=== PATIENT | female | born 1945 | race American Indian/Alaskan Native ===

== ENCOUNTER 2017-04-08 04:05 | Inpatient (IN) | payer MEDICARE ==
[2017-04-08 04:29] LABS: ISTAT Base Excess -7; ISTAT PCO2 27.9 (35-45); ISTAT PH 7.418 (7.35-7.45); ISTAT PO2 75 (80-105); ISTAT SO2 96; ISTAT TCO2 19
[2017-04-08] MEDS ORDERED: MAXIPIME/NS 1 GM/100 ML 1 GM/100 ML BAG IV ONE (04:35)
[2017-04-08] MEDS ORDERED: NACL 0.9% 1000 ML 1,000 ML IV ONE (04:35)
--- NOTE | 2017-04-08 04:45 | Emergency Department Report ---
ED Shortness of Breath HPI - General Stated Complaint: DIFFICULTY BREATHING Time Seen by Provider: 04/08/17 04:22 - History of Present Illness Initial Comments: 71-year-old female brought in by EMS from [facility], with shortness of breath and diaphoresis. Patient has past medical history of CVA, hypertension and diabetes. Patient brought in to the ER in moderate to severe respiratory distress. Unable to obtain history from patient due to her present condition MD Complaint: shortness of breath -: Sudden (just prior to arrival) Known History Of: diabetes, other (hypertension, history of CVA) Associated Symptoms: cough, diaphoresis, other (shortness of breath) Treatments Prior to Arrival: oxygen (patient placed on nonrebreather oxygen by EMS) - Related Data Home Medications Medication Instructions Recorded Confirmed Last Taken Acetaminophen [Acetaminophen ER 650 mg PO Q8HR PRN 12/07/16 12/07/16 12/07/16 TAB] Butalb/Acetamin/Caff 50-325-40 1 each PO Q4H PRN 12/07/16 12/07/16 12/07/16 [Fioricet] Cholestyramine 1 pack PO Q12H 12/07/16 12/07/16 Unknown Diphenoxylate HCl/Atropine 2 tab PO Q6H PRN 12/07/16 12/07/16 12/07/16 [Lomotil 2.5-0.025 mg Tablet] Gabapentin [Neurontin] 300 mg PO Q8HR 12/07/16 12/07/16 12/07/16 Labetalol HCl [Trandate TAB] 150 mg PO BID 12/07/16 12/07/16 12/07/16 Magnesium Hydroxide [Milk of 30 ml PO Q12H 12/07/16 12/07/16 12/07/16 Magnesia] Min Oil/Petrolatum [Artificial 1 applic OU QHS 12/07/16 12/07/16 12/06/16 Tears Ophth Oint] Multivitamin Tab W-MINERAL 1 each PO QD 12/07/16 12/07/16 12/07/16 [Multiple Vitamin/Mineral (Theragran M)] Omeprazole Magnesium [PriLOSEC Otc] 20 mg PO QDAY 12/07/16 12/07/16 12/07/16 Sertraline [Zoloft] 12.5 mg PO QDAY 12/07/16 12/07/16 12/07/16 prednisoLONE ACETATE 1% [Pred 1 drops OU QID 12/07/16 12/07/16 12/07/16 Forte 1%] Previous Rx's Medication Instructions Recorded Last Taken Type Docusate Sodium [Colace CAP] 100 mg PO BID #60 capsule 07/20/13 12/07/16 Rx traMADol [Ultram 50 MG tab] 50 mg PO Q4HR PRN #60 tablet 07/20/13 12/07/16 Rx Cholestyramine (with Sugar) 4 gm PO Q12H packet 12/09/16 Unknown Rx [Questran] Docusate Sodium [Colace CAP] 100 mg PO BID capsule 12/09/16 Unknown Rx Enoxaparin [Lovenox] 40 mg SUB-Q QDAY syringe 12/09/16 Unknown Rx Gabapentin [Neurontin] 300 mg PO Q8HR capsule 12/09/16 Unknown Rx Labetalol [Normodyne TAB] 150 mg PO BID tablet 12/09/16 Unknown Rx Min Oil/Petrolatum [Artificial 1 applic OU QHS tube 12/09/16 Unknown Rx Tears Ophth Oint] Multivitamin Tab W-MINERAL 1 each PO QDAY tablet 12/09/16 Unknown Rx [Multiple Vitamin/Mineral (Theragran M)] Pantoprazole [Protonix TAB] 20 mg PO QDAY tablet. 12/09/16 Unknown Rx Sertraline [Zoloft] 12.5 mg PO QDAY tablet 12/09/16 Unknown Rx prednisoLONE ACETATE 1% [Pred 1 drops OU QID bottle 12/09/16 Unknown Rx Forte 1%] Allergies Allergy/AdvReac Type Severity Reaction Status Date / Time codeine Allergy Nausea Verified 04/08/17 05:05 morphine Allergy Nausea Verified 04/08/17 05:05 ED Review of Systems ROS: Stated complaint: DIFFICULTY BREATHING Other details as noted in HPI Comment: Unobtainable due to pts medical conditions Constitutional: diaphoresis, malaise, weakness Respiratory: cough, shortness of breath ED Past Medical Hx - Past Medical History Hx Hypertension: Yes Hx Heart Attack/AMI: Yes Hx Congestive Heart Failure: Yes Hx Deep Vein Thrombosis: No Hx Arthritis: Yes Hx COPD: Yes Additional medical history: cardiac stents - Surgical History Hx Coronary Stent: Yes Hx Open Heart Surgery: Yes (1996) Hx Cholecystectomy: Yes Hx Appendectomy: Yes (1986) Hx Breast Surgery: Yes (1986 removed rt nipple) Additional Surgical History: hystererctomy 1986 - Social History Smoking Status: Never Smoker - Medications Home Medications: Home Medications Medication Instructions Recorded Confirmed Last Taken Type Docusate Sodium [Colace CAP] 100 mg PO BID #60 capsule 07/20/13 12/07/16 Rx traMADol [Ultram 50 MG tab] 50 mg PO Q4HR PRN #60 tablet 07/20/13 12/07/1612/07 Rx Acetaminophen [Acetaminophen ER 650 mg PO Q8HR PRN 12/07/16 12/07/16 12/07/16 History TAB] Butalb/Acetamin/Caff 50-325-40 1 each PO Q4H PRN 12/07/16 12/07/16 12/07/16 History [Fioricet] Cholestyramine 1 pack PO Q12H 12/07/16 12/07/16 Unknown History Diphenoxylate HCl/Atropine 2 tab PO Q6H PRN 12/07/16 12/07/16 12/07/16 History [Lomotil 2.5-0.025 mg Tablet] Gabapentin [Neurontin] 300 mg PO Q8HR 12/07/16 12/07/16 12/07/16 History Labetalol HCl [Trandate TAB] 150 mg PO BID 12/07/16 12/07/16 12/07/16 History Magnesium Hydroxide [Milk of 30 ml PO Q12H 12/07/16 12/07/16 12/07/16 History Magnesia] Min Oil/Petrolatum [Artificial 1 applic OU QHS 12/07/16 12/07/16 12/06/16 History Tears Ophth Oint] Multivitamin Tab W-MINERAL 1 each PO QD 12/07/16 12/07/16 12/07/16 History [Multiple Vitamin/Mineral (Theragran M)] Omeprazole Magnesium [PriLOSEC Otc] 20 mg PO QDAY 12/07/16 12/07/16 12/07/16 History Sertraline [Zoloft] 12.5 mg PO QDAY 12/07/16 12/07/16 12/07/16 History prednisoLONE ACETATE 1% [Pred 1 drops OU QID 12/07/16 12/07/16 12/07/16 History Forte 1%] Cholestyramine (with Sugar) 4 gm PO Q12H packet 12/09/16 Unknown Rx [Questran] Docusate Sodium [Colace CAP] 100 mg PO BID capsule 12/09/16 Unknown Rx Enoxaparin [Lovenox] 40 mg SUB-Q QDAY syringe 12/09/16 Unknown Rx Gabapentin [Neurontin] 300 mg PO Q8HR capsule 12/09/16 Unknown Rx Labetalol [Normodyne TAB] 150 mg PO BID tablet 12/09/16 Unknown Rx Min Oil/Petrolatum [Artificial 1 applic OU QHS tube 12/09/16 Unknown Rx Tears Ophth Oint] Multivitamin Tab W-MINERAL 1 each PO QDAY tablet 12/09/16 Unknown Rx [Multiple Vitamin/Mineral (Theragran M)] Pantoprazole [Protonix TAB] 20 mg PO QDAY tablet. 12/09/16 Unknown Rx Sertraline [Zoloft] 12.5 mg PO QDAY tablet 12/09/16 Unknown Rx prednisoLONE ACETATE 1% [Pred 1 drops OU QID bottle 12/09/16 Unknown Rx Forte 1%] ED Physical Exam - General General appearance: lethargic, in distress (moderate to severe respiratory distress), obese, other (patient appears diaphoretic) - Head Head exam: Present: atraumatic, normocephalic, normal inspection - Eye Eye exam: Present: normal appearance, PERRL, EOMI. Absent: scleral icterus - ENT ENT exam: Present: mucous membranes dry - Neck Neck exam: Present: normal inspection, full ROM. Absent: tenderness, lymphadenopathy - Respiratory Respiratory exam: Present: respiratory distress (moderate to severe distress), rales (bibasilar rales), decreased breath sounds, prolonged expiratory - Cardiovascular Cardiovascular Exam: Present: normal rhythm, tachycardia, normal heart sounds - GI/Abdominal GI/Abdominal exam: Present: soft, distended (obese abdomen), diminished bowel sounds. Absent: guarding, rebound - Rectal Rectal exam: Present: deferred - Extremities Exam Extremities exam: Present: full ROM, normal capillary refill, pedal edema - Neurological Exam Neurological exam: Present: other (patient in moderate severe respiratory distress unable to assess neurologically) ED Course Vital Signs 04/08/17 04/08/17 04:05 05:12 Temperature 97.9 F Pulse Rate 132 H 130 H Respiratory 44 H 36 H Rate Blood Pressure 141/72 88/58 [Left] O2 Sat by Pulse 100 97 Oximetry ED Medical Decision Making - Lab Data Result diagrams: 04/08/17 04:35 - EKG Data -: EKG Interpreted by Me - EKG Data 04/08/17 05:52 Sinus tachycardia rate of 140 beats per minutes rightward axis, right bundle branch block and left anterior fascicular block prolonged QTC Critical Care Time: Yes Critical care attestation.: If time is entered above; I have spent that time in minutes in the direct care of this critically ill patient, excluding procedure time. Critical Care Time: 30 MINS ED Disposition Clinical Impression: UTI (urinary tract infection), Sepsis, Pneumonia Disposition: DC-09 OP ADMIT IP TO THIS HOSP Is pt being admited?: Yes Does the pt Need Aspirin: No Condition: Stable Instructions: Bacterial Pneumonia (ED) Referrals: PRIMARY CARE, [Primary Care Provider] - 3-5 Days Time of Disposition: 06:55 (pt signed off to morning doctor)
[2017-04-08 05:27] LABS: Hematocrit 41.9 % (30.3-42.9); Hemoglobin 14.3 gm/dl (10.1-14.3); Mean Corpuscular HGB Conc 34 % (30-34); Mean Corpuscular Hemoglobin 32 pg (28-32); Mean Corpuscular Volume 94 fl (79-97); Red Blood Count 4.45 M/mm3 (3.65-5.03); Red Cell Distribution Width 14.2 % (13.2-15.2); White Blood Count 8.9 K/mm3 (4.5-11.0)
[2017-04-08 05:37] LABS: INR 1.14 (0.87-1.13)
[2017-04-08 05:38] LABS: Partial Thromboplastin Time 30.4 Sec. (24.2-36.6)
[2017-04-08] MEDS ORDERED: VANCOMYCIN VIAL IV ONE (05:48)
[2017-04-08] MEDS ORDERED: NACL 0.9% 1000 ML IV ONE ×2 (05:50→06:53)
[2017-04-08 05:54] LABS: Creatine Kinase MB 2.2 ng/mL (0.0-4.0); Magnesium 1.4 mg/dL (1.7-2.3)
[2017-04-08] MEDS ORDERED: ZOSYN/NS 3.375GM/50ML 3.375 GM/50 ML BAG IV SCH (06:00)
[2017-04-08] MEDS: ZOSYN/NS 4.5GM/100ML 4.5 GM/100 ML VIAL IV SCH ×2 (06:00→14:23)
[2017-04-08] MEDS ORDERED: ZOSYN/NS 4.5GM/100ML 4.5 GM/100 ML VIAL IV ONE (06:00)
[2017-04-08] MEDS ORDERED: VANCOMYCIN PHARMACY TO DOSE IV SCH (06:00)
[2017-04-08] MEDS ORDERED: VANCOMYCIN 2,000 MG in NACL 0.9% 500 ML 500 ML IV ONE (06:00)
[2017-04-08] MEDS ORDERED: VANCOMYCIN/NS 1 GM/250 ML 1 GM/250 ML BAG IV ONE (06:01)
[2017-04-08] MEDS ORDERED: VANCOMYCIN/NS 1 GM/250 ML 0 GM/0 ML BAG IV ONE (06:01)
[2017-04-08 06:02] LABS: Bacteria,Urine 4+ /HPF (Negative); Bilirubin,Urine NEG (Negative); Blood,Urine MOD (Negative); Ketones,Urine NEG (Negative); Leukocyte Esterase,Urine LG (Negative); Mucus,Urine 1+ /HPF; Nitrite,Urine POS (Negative); Urobilinogen,Urine < 2.0 mg/dL (<2.0)
[2017-04-08 06:04] LABS: WBC,Urine > 182.0 /HPF (0.0-6.0)
[2017-04-08] MEDS ORDERED: LEVOPHED DRIP 4 MG/NS 250 ML 4 MG/250 ML BAG IV SCH (07:00)
[2017-04-08 07:21] LABS: BUN/Creatinine Ratio 19.23; Calcium 8.7 mg/dL (8.4-10.2)
[2017-04-08 07:22] LABS: Albumin/Globulin Ratio 1.3 %; Bilirubin,Total 1.5 mg/dL (0.1-1.2); Chloride 101.6 mmol/L (98-107)
[2017-04-08 07:42] LABS: Basophils % (Manual) 0 % (0.0-1.8); Blastocytes % (Manual) 0 %; Eosinophils % (Manual) 0 % (0.0-4.3); Total Cells Counted Percent 0
[2017-04-08 07:43] LABS: Diff Status Complete; Platelet Clumps Few; RBC Morphology Normal
[2017-04-08 08:07] LABS: Potassium 5.6 mmol/L (3.6-5.0)
[2017-04-08] MEDS ORDERED: NACL 0.9% 500 ML 500 ML IV ONE (08:26)
[2017-04-08] MEDS ORDERED: NACL 0.9% 1000 ML 1,000 ML IV SCH (09:00)
[2017-04-08] MEDS ORDERED: MAGNESIUM SULFATE 2GM/50ML 2 GM/50 ML BAG IV ONE (09:10)
[2017-04-08 09:15] LABS: Platelet Count 152 K/mm3 (140-440)
--- NOTE | 2017-04-08 09:28 | XRay Report ---
AP CHEST: HISTORY: Dyspnea Compared to 12/07/16. Cardiac surgery changes are again noted. Mild cardiomegaly is present which appears slightly increased. Normal pulmonary vascularity. Minor segmental atelectasis at the left lung base or small left pleural effusion is identified. Otherwise, the lungs are clear. No pneumothorax. IMPRESSION: Mild cardiomegaly. Segmental atelectasis in the left lower lobe versus small left pleural effusion.
--- NOTE | 2017-04-08 11:34 | History and Physical Report ---
History of Present Illness Date of examination: 04/08/17 Date of admission: 04/08/17 08:23 Chief complaint: Shortness of breath History of present illness: Patient is a 71-year-old woman from [facility] under the care of Dr. Bryce Carrillo with a history of insulin-dependent diabetes mellitus, hypertension, depression, GERD, peripheral neuropathy, glaucoma, acute NH, coronary artery disease status post stents, COPD, CHF EF 45% on negative stress test December 2016, CVA with functional quadriplegia, contracted legs, dysphasia and left-sided hemiparesis who presents with "possible aspiration, labored breathing, sats fluctuating" per shelter report. Patient doesn't give a good history due to her lethargy. She is not complaining of chest pain or severe headaches. She admits to sweating, subjective fevers and malaise/fatigue. Past medical history: As HPI and Coronary artery disease, hypertension, CVA with residuals Past surgical history: CAD s/p CABG ', h/o left main stent thrombosis s/p PCI 12/16 Social history: No smoking, alcohol abuse or illicit drugs, full code per shelter sheet Family history: Asked but no answer Review of system:Constitutional: Positive for malaise, poor appetite Ears, nose, mouth and throat: no deferred, no ear pain, no decreased hearing, no sinus pressure, no bleeding gums, no dental pain, no mouth pain, no hoarseness, no sore throat, no swelling in mouth, no post-nasal drip, no headache, no vertigo, no pain front of neck, no neck lump Cardiovascular: no chest pain, lightheadedness, decreased exercise tolerance, no orthopnea, no palpitations, no rapid/irregular heart beat, no edema, no syncope, no shortness of breath, no dyspnea on exertion, no paroxysmal nocturnal dyspnea, no claudication, no phlebitis, no high blood pressure, no leg edema Respiratory: no cough with sputum, no excessive sputum, no hemoptysis, no pleurisy, no pain, no pain on inspiration, no respiratory infections, no other Gastrointestinal: no nausea, no diarrhea, no constipation, no hematemesis, no hematochezia, no loss of appetite, no early satiety, no indigestion, no dyspepsia/bloating Genitourinary Male: no flank pain, no discharge, no urinary hesitancy, no nocturia Rectal: no incontinence, no bleeding, no itching, no discharge Musculoskeletal: contractures Integumentary: no depigmentation, no dryness, no unusual bruising Neurological: Slightly confused positive Psychiatric: positive Endocrine: positive Hematologic/Lymphatic: no easy bruising, no lymphedema Allergic/Immunologic: no urticaria, no allergic rhinitis, no anaphylaxis Medications and Allergies Allergies Allergy/AdvReac Type Severity Reaction Status Date / Time codeine Allergy Nausea Verified 04/08/17 05:05 morphine Allergy Nausea Verified 04/08/17 05:05 Home Medications Medication Instructions Recorded Confirmed Last Taken Type traMADol [Ultram 50 MG tab] 50 mg PO Q4HR PRN #60 tablet 07/20/13 04/08/1712/07 Rx Acetaminophen [Acetaminophen ER 650 mg PO Q8HR PRN 12/07/16 04/08/17 12/07/16 History TAB] Butalb/Acetamin/Caff 50-325-40 1 each PO Q4H PRN 12/07/16 04/08/17 12/07/16 History [Fioricet] Cholestyramine 1 pack PO Q12H 12/07/16 04/08/17 Unknown History Diphenoxylate HCl/Atropine 2 tab PO Q6H PRN 12/07/16 04/08/17 12/07/16 History [Lomotil 2.5-0.025 mg Tablet] Magnesium Hydroxide [Milk of 30 ml PO Q12H 12/07/16 04/08/17 12/07/16 History Magnesia] Omeprazole Magnesium [PriLOSEC Otc] 20 mg PO QDAY 12/07/16 04/08/17 12/07/16 History prednisoLONE ACETATE 1% [Pred 1 drops OU QID 12/07/16 04/08/17 12/07/16 History Forte 1%] Docusate Sodium [Colace CAP] 100 mg PO BID capsule 12/09/16 04/08/17 Unknown Rx Gabapentin [Neurontin] 300 mg PO Q8HR capsule 12/09/16 04/08/17 Unknown Rx Labetalol [Normodyne TAB] 150 mg PO BID tablet 12/09/16 04/08/17 Unknown Rx Min Oil/Petrolatum [Artificial 1 applic OU QHS tube 12/09/16 04/08/17 Unknown Rx Tears Ophth Oint] Multivitamin Tab W-MINERAL 1 each PO QDAY tablet 12/09/16 04/08/17 Unknown Rx [Multiple Vitamin/Mineral (Theragran M)] Sertraline [Zoloft] 12.5 mg PO QDAY tablet 12/09/16 04/08/17 Unknown Rx Antacid Suspension 30 ml PO Q4H PRN 04/08/17 04/08/17 Unknown History Aspirin [Aspirin TAB] 1 tab PO DAILY 04/08/17 04/08/17 Unknown History Meloxicam 7.5 mg PO DAILY 04/08/17 04/08/17 Unknown History Norvasc 10 mg PO DAILY 04/08/17 04/08/17 Unknown History Percocet 5/325 mg 1 tab PO Q12H PRN 04/08/17 04/08/17 Unknown History Zocor TAB 20 mg PO HS 04/08/17 04/08/17 Unknown History Active Meds: Active Medications Heparin Sodium (Porcine) (Heparin) 5,000 unit SUB-Q Q12HR HERMELINDO Sodium Chloride (Nacl 0.9% 1000 Ml) 1,000 mls @ 125 mls/hr IV ONCE ONE Stop: 04/08/17 12:34 Last Admin: 04/08/17 05:19 Dose: 125 mls/hr Piperacillin Sod/Tazobactam Sod (Zosyn/Ns 4.5gm/100ml) 4.5 gm in 100 mls @ 200 mls/hr IV Q8HR HERMELINDO Last Admin: 04/08/17 06:00 Dose: 200 mls/hr Norepinephrine (Levophed Drip 4 Mg/Ns 250 Ml) 4 mg in 250 mls @ 7.5 mls/hr IV TITR HERMELINDO; 2 MCG/MIN PRN Reason: Protocol Vancomycin HCl (Vancomycin Pharmacy To Dose) 1 each IV PKCONSULT HERMELINDO PRN Reason: Protocol Exam - Physical Exam Narrative exam: GEN: Chronic debilitated, ill-appearing, lethargic, oriented 2 HEENT: NCAT, EOMI, PERRL, OP Clear NECK: supple, no adenopathy, no thyromegaly, no JVD CVS/HEART: Regular tachycardia, NORMAL S1S2, NO JVD, pulses present bilaterally CHEST/LUNGS: inspiratory crackles at base, Symmetrical chest expansion, good air entry bilaterally GI/Abdomen: protuberant but soft, nontender, good bowel sounds, no guarding or rebound /Bladder: no suprapubic tenderness, no CVA or paraspinal tenderness EXT/Skin: no significant edema or obvious rash, cap refill 2 sec MSK: bilateral leg contractures Neuro: CN 2-12 grossly intact, no new focal deficits Psych: calm but confused - Constitutional Vitals: Temp Pulse Resp BP Pulse Ox 97.9 F 113 H 33 H 209/124 99 04/08/17 04:05 04/08/17 07:54 04/08/17 07:54 04/08/17 07:54 04/08/17 07:54 Results - Labs CBC & Chem 7: 04/08/17 04:35 04/08/17 06:55 Labs: Abnormal lab results 04/08/17 Range/Units 08:55 Lactic Acid 5.70 H* (0.7-2.0) mmol/L Assessment and Plan Patient is a 71-year-old woman from [facility] under the care of Dr. Bryce Carrillo with a history of insulin-dependent diabetes mellitus, hypertension, depression, GERD, peripheral neuropathy, glaucoma, acute NH, coronary artery disease status post CABG and stent, COPD, CHF EF 45% on negative stress test December 2016, CVA with functional quadriplegia, contracted legs, dysphasia and left-sided hemiparesis who presents with "possible aspiration, labored breathing, sats fluctuating" per shelter report. Patient has ams with lethargy. Portable chest x-ray read as mild cardiomegaly, segmental atelectasis left lower lobe versus small left pleural effusion. Urinalysis indicative of urinary tract infection. Patient was found to be hypotensive and a central line was placed, Levophed ordered but not given because blood pressure temporarily responded to IV fluid boluses; however, patient has h/o of chf/cad, EF of 45%. Therefore must be careful with IV hydration. -Septic shock likely due to UTI: Treat with IV antibiotics, IV fluids, follow cultures, ordered repeat lactic acid for sepsis bundle criteria -Acute hypoxic respiratory failure currently on 2 L oxygen which is new for patient: Consult respiratory therapy, pulmonology, wean oxygen as appropriate, nebulizer treatments -Acute encephalopathy due to sepsis: Treat above -Functional quadriplegia due to CVA with left-sided hemiparesis: Wound care consult -Hyperkalemia, mild 5.6: Repeat levels -Hypomagnesemia: Replace and recheck in a.m. -DVT prophylaxis: Subcutaneous heparin The high probability of a clinically significant, sudden or life threatening deterioration of the [] system(s) required my full and direct attention, intervention and personal management. The aggregate critical care time was [32] minutes. This time is in addition to time spent performing reported procedures but includes the following: [] Data Review and interpretation [] Patient assessment and monitoring of vital signs [] Documentation [] Medication orders and management
--- NOTE | 2017-04-08 18:35 | XRay Report ---
FINAL REPORT EXAM: XR ABDOMEN 1V AP HISTORY: ABD PAIN TECHNIQUE: Supine views of the abdomen PRIORS: None. FINDINGS: The bowel gas pattern is nonspecific. No free air is identified. Soft tissues have no evidence for mass shadows or calcifications. A right femoral catheter is in place. Surgical clips in right upper quadrant are from a prior cholecystectomy. The bony structures demonstrates moderate narrowing of both hip joints related to osteoarthritis. Degenerative changes in the lower lumbar spine are noted. Images include the lower chest which demonstrate moderate cardiomegaly. IMPRESSION: Nonspecific, nonobstructive bowel gas pattern with no acute process noted.
[2017-04-08] MEDS ORDERED: TYLENOL PO ONE (18:43)
[2017-04-08] MEDS ORDERED: DUONEB *Not for PRN Use IH SCH (20:00)
[2017-04-09] MEDS: HEPARIN SUB-Q SCH ×3 (00:01→22:15)
[2017-04-09] MEDS: PROVENTIL IH PRN (05:07)
[2017-04-09] MEDS: ZOSYN/NS 4.5GM/100ML 4.5 GM/100 ML VIAL IV SCH ×4 (05:30→22:14)
[2017-04-09 08:21] LABS: BUN/Creatinine Ratio 18.75; Calcium 7.8 mg/dL (8.4-10.2); Potassium 3.9 mmol/L (3.6-5.0)
[2017-04-09 08:41] LABS: Hematocrit TNR % (30.3-42.9); Hemoglobin TNR gm/dl (10.1-14.3); Mean Corpuscular HGB Conc TNR % (30-34); Mean Corpuscular Hemoglobin TNR pg (28-32); Mean Corpuscular Volume TNR fl (79-97); Red Blood Count TNR M/mm3 (3.65-5.03); Red Cell Distribution Width TNR % (13.2-15.2); White Blood Count TNR K/mm3 (4.5-11.0)
[2017-04-09 08:43] LABS: Platelet Count TNR K/mm3 (140-440)
[2017-04-09] MEDS: DUONEB *Not for PRN Use IH SCH ×3 (09:10→19:44)
[2017-04-09] MEDS: DILAUDID IV PRN ×2 (10:48→19:58)
[2017-04-09] MEDS: VANCOMYCIN 1,500 MG in NACL 0.9% 500 ML 500 ML IV SCH (10:56)
[2017-04-09] MEDS ORDERED: LOPRESSOR IV ONE (11:00)
[2017-04-09 12:52] LABS: Hematocrit 33.2 % (30.3-42.9); Hemoglobin 11.2 gm/dl (10.1-14.3); Mean Corpuscular HGB Conc 34 % (30-34); Mean Corpuscular Hemoglobin 32 pg (28-32); Mean Corpuscular Volume 94 fl (79-97); Red Blood Count 3.54 M/mm3 (3.65-5.03); Red Cell Distribution Width 14.7 % (13.2-15.2)
[2017-04-09 12:59] LABS: Platelet Count 80 K/mm3 (140-440); White Blood Count 28.3 K/mm3 (4.5-11.0)
--- NOTE | 2017-04-09 14:42 | Progress Note ---
Assessment and Plan Assessment and plan: Patient is a 71-year-old woman from [facility] under the care of Dr. Bryce Carrillo with a history of insulin-dependent diabetes mellitus, hypertension, depression, GERD, peripheral neuropathy, glaucoma, acute MT, coronary artery disease status post CABG and stent, COPD, CHF EF 45% on negative stress test December 2016, CVA with functional quadriplegia, contracted legs, dysphasia and left-sided hemiparesis who presents with "possible aspiration, labored breathing, sats fluctuating" per [facility] report. Patient has ams with lethargy. Portable chest x-ray read as mild cardiomegaly, segmental atelectasis left lower lobe versus small left pleural effusion. Urinalysis indicative of urinary tract infection. Patient was found to be hypotensive and a central line was placed, Levophed ordered but not given because blood pressure temporarily responded to IV fluid boluses; however, patient has h/o of chf/cad, EF of 45%. Therefore must be careful with IV hydration. -Septic shock likely due to UTI: Treat with IV antibiotics, IV fluids, follow cultures, ordered repeat lactic acid for sepsis bundle criteria -Acute hypoxic respiratory failure currently on 2 L oxygen which is new for patient: Consult edrespiratory therapy, pulmonology, wean oxygen as appropriate , nebulizer treatments -Acute encephalopathy due to sepsis: Treat above -Functional quadriplegia due to CVA with left-sided hemiparesis: Wound care consult -Hyperkalemia, mild 5.6: Repeat levels -Hypomagnesemia: Replace and recheck in a.m. -DVT prophylaxis: Subcutaneous heparin full code Disposition: Continued inpatient care, transferred from ICU to telemetry since off vasopressor. History Interval history: Patient was seen and examined. Follow-up on current diagnosis/shortness of breath which she still experiencing. Overnight uneventful. Patient denies any chest pain, nausea/vomiting or severe headaches. Imaging, nursing note, chart, labs and old chart reviewed. Discussed with patient. Hospitalist Physical - Physical exam Narrative exam: GEN: Chronic debilitated, ill-appearing, lethargic, oriented 2 HEENT: NCAT, EOMI, PERRL, OP Clear NECK: supple, no adenopathy, no thyromegaly, no JVD CVS/HEART: Regular tachycardia, NORMAL S1S2, NO JVD, pulses present bilaterally CHEST/LUNGS: inspiratory crackles at base, Symmetrical chest expansion, good air entry bilaterally GI/Abdomen: protuberant but soft, nontender, good bowel sounds, no guarding or rebound /Bladder: no suprapubic tenderness, no CVA or paraspinal tenderness EXT/Skin: no significant edema or obvious rash, cap refill 2 sec MSK: bilateral leg contractures Neuro: CN 2-12 grossly intact, no new focal deficits Psych: calm but confused - Constitutional Vitals: Temp Pulse Resp BP Pulse Ox 98.9 F 85 21 114/68 93 04/09/17 11:43 04/09/17 11:50 04/09/17 11:50 04/09/17 11:50 04/09/17 11:50 Results - Labs CBC & Chem 7: 04/09/17 12:39 04/09/17 07:52 Labs: Laboratory Last Values WBC 28.3 K/mm3 (4.5-11.0) H 04/09/17 12:39 RBC 3.54 M/mm3 (3.65-5.03) L 04/09/17 12:39 Hgb 11.2 gm/dl (10.1-14.3) D 04/09/17 12:39 Hct 33.2 % (30.3-42.9) D 04/09/17 12:39 MCV 94 fl (79-97) 04/09/17 12:39 MCH 32 pg (28-32) 04/09/17 12:39 MCHC 34 % (30-34) 04/09/17 12:39 RDW 14.7 % (13.2-15.2) 04/09/17 12:39 Plt Count 80 K/mm3 (140-440) L 04/09/17 12:39 Add Manual Diff Complete 04/08/17 04:35 Total Counted 100 04/08/17 04:35 Seg Neutrophils % Senior Integration Developer 04/08/17 04:35 Seg Neuts % (Manual) 83.0 % (40.0-70.0) H 04/08/17 04:35 Band Neutrophils % 14.0 % 04/08/17 04:35 Lymphocytes % (Manual) 3.0 % (13.4-35.0) L 04/08/17 04:35 Reactive Lymphs % (Man) 0 % 04/08/17 04:35 Monocytes % (Manual) 0 % (0.0-7.3) 04/08/17 04:35 Eosinophils % (Manual) 0 % (0.0-4.3) 04/08/17 04:35 Basophils % (Manual) 0 % (0.0-1.8) 04/08/17 04:35 Metamyelocytes % 0 % 04/08/17 04:35 Myelocytes % 0 % 04/08/17 04:35 Promyelocytes % 0 % 04/08/17 04:35 Blast Cells % 0 % 04/08/17 04:35 Nucleated RBC % 1.0 % (0.0-0.9) H 04/08/17 04:35 Seg Neutrophils # Man 7.4 K/mm3 (1.8-7.7) 04/08/17 04:35 Band Neutrophils # 1.2 K/mm3 04/08/17 04:35 Lymphocytes # (Manual) 0.3 K/mm3 (1.2-5.4) L 04/08/17 04:35 Abs React Lymphs (Man) 0.0 K/mm3 04/08/17 04:35 Monocytes # (Manual) 0.0 K/mm3 (0.0-0.8) 04/08/17 04:35 Eosinophils # (Manual) 0.0 K/mm3 (0.0-0.4) 04/08/17 04:35 Basophils # (Manual) 0.0 K/mm3 (0.0-0.1) 04/08/17 04:35 Metamyelocytes # 0.0 K/mm3 04/08/17 04:35 Myelocytes # 0.0 K/mm3 04/08/17 04:35 Promyelocytes # 0.0 K/mm3 04/08/17 04:35 Blast Cells # 0.0 K/mm3 04/08/17 04:35 WBC Morphology Not Reportable 04/08/17 04:35 Hypersegmented Neuts Not Reportable 04/08/17 04:35 Hyposegmented Neuts Not Reportable 04/08/17 04:35 Hypogranular Neuts Not Reportable 04/08/17 04:35 Smudge Cells Not Reportable 04/08/17 04:35 Toxic Granulation Not Reportable 04/08/17 04:35 Toxic Vacuolation Not Reportable 04/08/17 04:35 Dohle Bodies Not Reportable 04/08/17 04:35 Pelger-Huet Anomaly Not Reportable 04/08/17 04:35 Ortiz Rods Not Reportable 04/08/17 04:35 Platelet Estimate Appears normal 04/08/17 04:35 Clumped Platelets Few 04/08/17 04:35 Plt Clumps, EDTA Not Reportable 04/08/17 04:35 Large Platelets Not Reportable 04/08/17 04:35 Giant Platelets Not Reportable 04/08/17 04:35 Platelet Satelliting Not Reportable 04/08/17 04:35 Plt Morphology Comment Not Reportable 04/08/17 04:35 RBC Morphology Normal 04/08/17 04:35 Dimorphic RBCs Not Reportable 04/08/17 04:35 Polychromasia Not Reportable 04/08/17 04:35 Hypochromasia Not Reportable 04/08/17 04:35 Poikilocytosis Not Reportable 04/08/17 04:35 Anisocytosis Not Reportable 04/08/17 04:35 Microcytosis Not Reportable 04/08/17 04:35 Macrocytosis Not Reportable 04/08/17 04:35 Spherocytes Not Reportable 04/08/17 04:35 Pappenheimer Bodies Not Reportable 04/08/17 04:35 Sickle Cells Not Reportable 04/08/17 04:35 Target Cells Not Reportable 04/08/17 04:35 Tear Drop Cells Not Reportable 04/08/17 04:35 Ovalocytes Not Reportable 04/08/17 04:35 Helmet Cells Not Reportable 04/08/17 04:35 López-Sandoval Bodies Not Reportable 04/08/17 04:35 [place] Rings Not Reportable 04/08/17 04:35 Tali Cells Not Reportable 04/08/17 04:35 Bite Cells Not Reportable 04/08/17 04:35 Crenated Cell Not Reportable 04/08/17 04:35 Elliptocytes Not Reportable 04/08/17 04:35 Acanthocytes (Spur) Not Reportable 04/08/17 04:35 Rouleaux Not Reportable 04/08/17 04:35 Hemoglobin C Crystals Not Reportable 04/08/17 04:35 Schistocytes Not Reportable 04/08/17 04:35 Malaria parasites Not Reportable 04/08/17 04:35 Colton Bodies Not Reportable 04/08/17 04:35 Hem Pathologist Commnt No 04/08/17 04:35 PT 15.2 Sec. (12.2-14.9) H 04/08/17 04:35 INR 1.14 (0.87-1.13) H 04/08/17 04:35 APTT 30.4 Sec. (24.2-36.6) 04/08/17 04:35 POC ABG pH 7.418 (7.35-7.45) 04/08/17 04:26 POC ABG pCO2 27.9 (35-45) L 04/08/17 04:26 POC ABG pO2 75 (80-105) L 04/08/17 04:26 POC ABG HCO3 18.0 04/08/17 04:26 POC ABG Total CO2 19 04/08/17 04:26 POC ABG O2 Sat 96 04/08/17 04:26 POC ABG Base Excess -7 04/08/17 04:26 FiO2 32 % 04/08/17 04:26 Sodium 143 mmol/L (137-145) 04/09/17 07:52 Potassium 3.9 mmol/L (3.6-5.0) D 04/09/17 07:52 Chloride 105.0 mmol/L (98-107) 04/09/17 07:52 Carbon Dioxide 20 mmol/L (22-30) L 04/09/17 07:52 Anion Gap 22 mmol/L 04/09/17 07:52 BUN 30 mg/dL (7-17) H 04/09/17 07:52 Creatinine 1.6 mg/dL (0.7-1.2) H 04/09/17 07:52 Estimated GFR 38 ml/min 04/09/17 07:52 BUN/Creatinine Ratio 18.75 % 04/09/17 07:52 Glucose 142 mg/dL (65-100) H 04/09/17 07:52 POC Glucose 156 (70-105) H 04/09/17 04:54 Lactic Acid 5.70 mmol/L (0.7-2.0) H* 04/08/17 08:55 Calcium 7.8 mg/dL (8.4-10.2) L 04/09/17 07:52 Magnesium 2.00 mg/dL (1.7-2.3) 04/09/17 07:52 Total Bilirubin 1.50 mg/dL (0.1-1.2) H 04/08/17 06:55 AST 39 units/L (5-40) 04/08/17 06:55 ALT 20 units/L (7-56) 04/08/17 06:55 Alkaline Phosphatase 167 units/L (35-129) H 04/08/17 06:55 Total Creatine Kinase 284 units/L (30-135) H 04/08/17 04:35 CK-MB (CK-2) 2.2 ng/mL (0.0-4.0) 04/08/17 04:35 CK-MB (CK-2) Rel Index 0.7 (0-4) 04/08/17 04:35 Troponin T 0.034 ng/mL (0.00-0.029) H 04/08/17 04:35 NT-Pro-B Natriuret Pep 2928 pg/mL (0-900) H 04/08/17 06:36 Total Protein 7.0 g/dL (6.3-8.2) 04/08/17 06:55 Albumin 4.0 g/dL (3.9-5) 04/08/17 06:55 Albumin/Globulin Ratio 1.3 % 04/08/17 06:55 Triglycerides 120 mg/dL (2-149) 04/08/17 04:35 Cholesterol 118 mg/dL (50-199) 04/08/17 04:35 LDL Cholesterol Direct 56 mg/dL (50-130) 04/08/17 04:35 HDL Cholesterol 38 mg/dL (40-59) L 04/08/17 04:35 Cholesterol/HDL Ratio 3.10 % 04/08/17 04:35 Lipase 9 units/L (13-60) L 04/08/17 04:35 Urine Color Yellow (Yellow) 04/08/17 05:08 Urine Turbidity Clear (Clear) 04/08/17 05:08 Urine pH 5.0 (5.0-7.0) 04/08/17 05:08 Ur Specific [place] 1.016 (1.003-1.030) 04/08/17 05:08 Urine Protein 100 mg/dl mg/dL (Negative) 04/08/17 05:08 Urine Glucose (UA) Neg mg/dL (Negative) 04/08/17 05:08 Urine Ketones Neg mg/dL (Negative) 04/08/17 05:08 Urine Blood Mod (Negative) 04/08/17 05:08 Urine Nitrite Pos (Negative) 04/08/17 05:08 Urine Bilirubin Neg (Negative) 04/08/17 05:08 Urine Urobilinogen < 2.0 mg/dL (<2.0) 04/08/17 05:08 Ur Leukocyte Esterase Lg (Negative) 04/08/17 05:08 Urine WBC (Auto) > 182.0 /HPF (0.0-6.0) H 04/08/17 05:08 Urine RBC (Auto) 14.0 /HPF (0.0-6.0) 04/08/17 05:08 U Epithel Cells (Auto) 1.0 /HPF (0-13.0) 04/08/17 05:08 Urine Bacteria (Auto) 4+ /HPF (Negative) 04/08/17 05:08 Urine WBC Clumps 3+ /HPF 04/08/17 05:08 Urine Mucus 1+ /HPF 04/08/17 05:08
[2017-04-09 14:46] LABS: Blastocytes % (Manual) 0 %; Diff Status Complete; RBC Morphology Normal
[2017-04-09] MEDS: PROTONIX PO SCH (15:00)
[2017-04-09] MEDS: ZOLOFT PO SCH (15:00)
--- NOTE | 2017-04-09 15:14 | Consultation ---
History of Present Illness Consult date: 04/09/17 Requesting physician: HEMANT MENARD Reason for consult: dyspnea, other (sepsis) History of present illness: 71 yo admitted with "labored breathing", altered mentation, hypotension. Found to have dirty urine, bacteremia. CVL placed but has not required pressors. She is currently alert. C/o N/V/D, abd pain, and back pain, as well as ongoing SOB. No chest pain. Active Medications Albuterol (Proventil) 2.5 mg IH Q4HRT PRN PRN Reason: Shortness Of Breath Last Admin: 04/09/17 05:07 Dose: 2.5 mg Albuterol/Ipratropium (Duoneb *Not For Prn Use*) 1 ampul IH TIDRT [facility] Last Admin: 04/09/17 09:10 Dose: 1 ampul Aspirin (Aspirin) 325 mg PO DAILY [facility] Docusate Sodium (Colace) 100 mg PO BID [facility] Gabapentin (Neurontin) 300 mg PO Q8HR [facility] Heparin Sodium (Porcine) (Heparin) 5,000 unit SUB-Q Q12HR [facility] Last Admin: 04/09/17 10:48 Dose: 5,000 unit Hydromorphone HCl (Dilaudid) 0.5 mg IV Q3H PRN PRN Reason: Pain , Severe (7-10) Last Admin: 04/09/17 10:48 Dose: 0.5 mg Piperacillin Sod/Tazobactam Sod (Zosyn/Ns 4.5gm/100ml) 4.5 gm in 100 mls @ 200 mls/hr IV Q8HR [facility] Last Admin: 04/09/17 05:30 Dose: 200 mls/hr Norepinephrine (Levophed Drip 4 Mg/Ns 250 Ml) 4 mg in 250 mls @ 7.5 mls/hr IV TITR HERMELINDO; 2 MCG/MIN PRN Reason: Protocol Vancomycin HCl 1,500 mg/ (Sodium Chloride) 515 mls @ 333.333 mls/hr IV Q24HR [facility] Last Admin: 04/09/17 10:56 Dose: 333.333 mls/hr Sodium Chloride (Nacl 0.9% 1000 Ml) 1,000 mls @ 50 mls/hr IV DIRECT [facility] Pantoprazole Sodium (Protonix) 20 mg PO QDAY [facility] Prednisolone Acetate (Pred Forte 1%) 1 drops OU QID [facility] Sertraline HCl (Zoloft) 12.5 mg PO QDAY [facility] Simvastatin (Zocor) 20 mg PO QHS [facility] Vancomycin HCl (Vancomycin Pharmacy To Dose) 1 each IV PKCONSULT [facility]MELINDO PRN Reason: Protocol Past History Past Medical History: other (CAD, GERD, Hx of CVA, Obesity) Past Surgical History: CABG Social history: other (Resides at [facility]). denies: smoking, alcohol abuse, prescription drug abuse Family history: other (No pulm issues reported) Medications and Allergies Allergies Allergy/AdvReac Type Severity Reaction Status Date / Time codeine Allergy Nausea Verified 04/08/17 05:05 morphine Allergy Nausea Verified 04/08/17 05:05 Home Medications Medication Instructions Recorded Confirmed Last Taken Type traMADol [Ultram 50 MG tab] 50 mg PO Q4HR PRN #60 tablet 07/20/13 04/08/1712/07 Rx Acetaminophen [Acetaminophen ER 650 mg PO Q8HR PRN 12/07/16 04/08/17 12/07/16 History TAB] Butalb/Acetamin/Caff 50-325-40 1 each PO Q4H PRN 12/07/16 04/08/17 12/07/16 History [Fioricet] Cholestyramine 1 pack PO Q12H 12/07/16 04/08/17 Unknown History Diphenoxylate HCl/Atropine 2 tab PO Q6H PRN 12/07/16 04/08/17 12/07/16 History [Lomotil 2.5-0.025 mg Tablet] Magnesium Hydroxide [Milk of 30 ml PO Q12H 12/07/16 04/08/17 12/07/16 History Magnesia] Omeprazole Magnesium [PriLOSEC Otc] 20 mg PO QDAY 12/07/16 04/08/17 12/07/16 History prednisoLONE ACETATE 1% [Pred 1 drops OU QID 12/07/16 04/08/17 12/07/16 History Forte 1%] Docusate Sodium [Colace CAP] 100 mg PO BID capsule 12/09/16 04/08/17 Unknown Rx Gabapentin [Neurontin] 300 mg PO Q8HR capsule 12/09/16 04/08/17 Unknown Rx Labetalol [Normodyne TAB] 150 mg PO BID tablet 12/09/16 04/08/17 Unknown Rx Min Oil/Petrolatum [Artificial 1 applic OU QHS tube 12/09/16 04/08/17 Unknown Rx Tears Ophth Oint] Multivitamin Tab W-MINERAL 1 each PO QDAY tablet 12/09/16 04/08/17 Unknown Rx [Multiple Vitamin/Mineral (Theragran M)] Sertraline [Zoloft] 12.5 mg PO QDAY tablet 12/09/16 04/08/17 Unknown Rx Antacid Suspension 30 ml PO Q4H PRN 04/08/17 04/08/17 Unknown History Aspirin [Aspirin TAB] 1 tab PO DAILY 04/08/17 04/08/17 Unknown History Meloxicam 7.5 mg PO DAILY 04/08/17 04/08/17 Unknown History Norvasc 10 mg PO DAILY 04/08/17 04/08/17 Unknown History Percocet 5/325 mg 1 tab PO Q12H PRN 04/08/17 04/08/17 Unknown History Zocor TAB 20 mg PO HS 04/08/17 04/08/17 Unknown History Active Meds: Active Medications Albuterol (Proventil) 2.5 mg IH Q4HRT PRN PRN Reason: Shortness Of Breath Last Admin: 04/09/17 05:07 Dose: 2.5 mg Albuterol/Ipratropium (Duoneb *Not For Prn Use*) 1 ampul IH TIDRT [facility] Last Admin: 04/09/17 09:10 Dose: 1 ampul Aspirin (Aspirin) 325 mg PO DAILY [facility] Docusate Sodium (Colace) 100 mg PO BID [facility] Gabapentin (Neurontin) 300 mg PO Q8HR [facility] Heparin Sodium (Porcine) (Heparin) 5,000 unit SUB-Q Q12HR [facility] Last Admin: 04/09/17 10:48 Dose: 5,000 unit Hydromorphone HCl (Dilaudid) 0.5 mg IV Q3H PRN PRN Reason: Pain , Severe (7-10) Last Admin: 04/09/17 10:48 Dose: 0.5 mg Piperacillin Sod/Tazobactam Sod (Zosyn/Ns 4.5gm/100ml) 4.5 gm in 100 mls @ 200 mls/hr IV Q8HR [facility] Last Admin: 04/09/17 05:30 Dose: 200 mls/hr Norepinephrine (Levophed Drip 4 Mg/Ns 250 Ml) 4 mg in 250 mls @ 7.5 mls/hr IV TITR [facility]MELINDO; 2 MCG/MIN PRN Reason: Protocol Vancomycin HCl 1,500 mg/ (Sodium Chloride) 515 mls @ 333.333 mls/hr IV Q24HR [facility] Last Admin: 04/09/17 10:56 Dose: 333.333 mls/hr Sodium Chloride (Nacl 0.9% 1000 Ml) 1,000 mls @ 50 mls/hr IV DIRECT [facility] Pantoprazole Sodium (Protonix) 20 mg PO QDAY [facility] Prednisolone Acetate (Pred Forte 1%) 1 drops OU QID [facility] Sertraline HCl (Zoloft) 12.5 mg PO QDAY [facility] Simvastatin (Zocor) 20 mg PO QHS [facility] Vancomycin HCl (Vancomycin Pharmacy To Dose) 1 each IV PKCONSULT [facility] PRN Reason: Protocol Review of Systems All systems: negative Physical Examination Vital signs: Vital Signs Temp Pulse Resp BP Pulse Ox 97.9 F 132 H 44 H 141/72 100 04/08/17 04:05 04/08/17 04:05 04/08/17 04:05 04/08/17 04:05 04/08/17 04:05 General appearance: alert, other (awake) Eyes: non-icteric ENT: oropharynx moist Neck: supple Effort: mildly labored Ascultation: Bilateral: diminished breath sounds (due to obesity, no wheezes/ crackles) Cardiovascular: regular rate and rhythm (no mrg) Gastrointestinal: hypoactive bowel sounds, soft, tender (diffusely), other ( distended) Integumentary: normal Extremities: no cyanosis, edema (trace lower extremity edema) normal mental status, pupils equal and round, other (L sided hemiparesis) mood appropriate, affect normal Results - Laboratory Findings CBC and BMP: 04/09/17 12:39 04/09/17 07:52 ABG POC ABG pH 7.418 (7.35-7.45) 04/08/17 04:26 POC ABG pCO2 27.9 (35-45) L 04/08/17 04:26 POC ABG pO2 75 (80-105) L 04/08/17 04:26 POC ABG HCO3 18.0 04/08/17 04:26 POC ABG Total CO2 19 04/08/17 04:26 POC ABG O2 Sat 96 04/08/17 04:26 PT/INR, D-dimer PT 15.2 Sec. (12.2-14.9) H 04/08/17 04:35 INR 1.14 (0.87-1.13) H 04/08/17 04:35 Abnormal lab findings: Abnormal Labs 04/08/17 04/09/17 04/09/17 08:55 00:03 04:54 WBC RBC Plt Count Lymphocytes % (Manual) Seg Neutrophils # Man Lymphocytes # (Manual) Carbon Dioxide BUN Creatinine Glucose POC Glucose 163 H 156 H Lactic Acid 5.70 H* Calcium 04/09/17 04/09/17 07:52 12:39 WBC 28.3 H RBC 3.54 L Plt Count 80 L Lymphocytes % (Manual) 4.0 L Seg Neutrophils # Man 18.4 H Lymphocytes # (Manual) 1.1 L Carbon Dioxide 20 L BUN 30 H Creatinine 1.6 H Glucose 142 H POC Glucose Lactic Acid Calcium 7.8 L - Diagnostic Findings Chest x-ray: report reviewed, image reviewed (mild CM without CHF, lungs generally clear) Assessment and Plan Imp: 1. UTI 2. Severe sepsis 3. [facility]A MARIA 4. Acute respiratory failure, hypoxia 5. Lactic acidosis 6. Thrombocytopenia, likely due to sepsis 7. Bacteremia 8. [facility] Rec: 1. Vanco/Zosyn; f/u cultures 2. Gentle hydration given rising Cr 3. Change espitia 4. CT a/p with PO contrast 5. Monitor platelets; check Fibrinogen; may have to hold Heparin if any worsening 6. Repeat lactate in AM as well as labs 7. Would remove R fem CVL NICO; either replace with PIVs or PICC Plan of care reviewed w/ patient, she understands/agrees Thanks kindly for the consult. Will follow. CCT 31 minutes
--- NOTE | 2017-04-09 16:11 | Consultation ---
History of Present Illness Consult date: 04/09/17 Requesting physician: MAEGAN MENARD Consult reason: atrial fibrillation History of present illness: The patient is a 71-year-old woman from [facility] under the care of Dr. Bryce Carrillo with a past medical history significant for insulin-dependent diabetes mellitus, hypertension, depression, GERD, peripheral neuropathy, glaucoma, acute AK, coronary artery disease status post PCI and CABG , COPD, CHF EF 45% on negative stress test December 2016, CVA with functional quadriplegia, contracted legs, dysphasia and left-sided hemiparesis who presents with "possible aspiration, labored breathing, sats fluctuating" per senior living report. Patient doesn't give a good history due to her lethargy. She is not complaining of chest pain or severe headaches. She admits to sweating, subjective fevers and malaise/fatigue. On evaluation, she is noted in be in AFlutter 2:1 with RVR, HR 140s, and thus cardiology has been consulted. Admission EKG was read as sinus tachycardia but also appears to be AFlutter with 2:1 conduction. Past History Past Medical History: CAD, other (CAD, GERD, Hx of CVA, Obesity) Past Surgical History: CABG Social history: other (Resides at SNF). denies: smoking, alcohol abuse, prescription drug abuse Family history: other (No pulm issues reported) Medications and Allergies Allergies Allergy/AdvReac Type Severity Reaction Status Date / Time codeine Allergy Nausea Verified 04/08/17 05:05 morphine Allergy Nausea Verified 04/08/17 05:05 Home Medications Medication Instructions Recorded Confirmed Last Taken Type traMADol [Ultram 50 MG tab] 50 mg PO Q4HR PRN #60 tablet 07/20/13 04/08/1712/07 Rx Acetaminophen [Acetaminophen ER 650 mg PO Q8HR PRN 12/07/16 04/08/17 12/07/16 History TAB] Butalb/Acetamin/Caff 50-325-40 1 each PO Q4H PRN 12/07/16 04/08/17 12/07/16 History [Fioricet] Cholestyramine 1 pack PO Q12H 12/07/16 04/08/17 Unknown History Diphenoxylate HCl/Atropine 2 tab PO Q6H PRN 12/07/16 04/08/17 12/07/16 History [Lomotil 2.5-0.025 mg Tablet] Magnesium Hydroxide [Milk of 30 ml PO Q12H 12/07/16 04/08/17 12/07/16 History Magnesia] Omeprazole Magnesium [PriLOSEC Otc] 20 mg PO QDAY 12/07/16 04/08/17 12/07/16 History prednisoLONE ACETATE 1% [Pred 1 drops OU QID 12/07/16 04/08/17 12/07/16 History Forte 1%] Docusate Sodium [Colace CAP] 100 mg PO BID capsule 12/09/16 04/08/17 Unknown Rx Gabapentin [Neurontin] 300 mg PO Q8HR capsule 12/09/16 04/08/17 Unknown Rx Labetalol [Normodyne TAB] 150 mg PO BID tablet 12/09/16 04/08/17 Unknown Rx Min Oil/Petrolatum [Artificial 1 applic OU QHS tube 12/09/16 04/08/17 Unknown Rx Tears Ophth Oint] Multivitamin Tab W-MINERAL 1 each PO QDAY tablet 12/09/16 04/08/17 Unknown Rx [Multiple Vitamin/Mineral (Theragran M)] Sertraline [Zoloft] 12.5 mg PO QDAY tablet 12/09/16 04/08/17 Unknown Rx Antacid Suspension 30 ml PO Q4H PRN 04/08/17 04/08/17 Unknown History Aspirin [Aspirin TAB] 1 tab PO DAILY 04/08/17 04/08/17 Unknown History Meloxicam 7.5 mg PO DAILY 04/08/17 04/08/17 Unknown History Norvasc 10 mg PO DAILY 04/08/17 04/08/17 Unknown History Percocet 5/325 mg 1 tab PO Q12H PRN 04/08/17 04/08/17 Unknown History Zocor TAB 20 mg PO HS 04/08/17 04/08/17 Unknown History Active Meds: Active Medications Albuterol (Proventil) 2.5 mg IH Q4HRT PRN PRN Reason: Shortness Of Breath Last Admin: 04/09/17 05:07 Dose: 2.5 mg Albuterol/Ipratropium (Duoneb *Not For Prn Use*) 1 ampul IH TIDRT HERMELINDO Last Admin: 04/09/17 16:03 Dose: 1 ampul Aspirin (Aspirin) 325 mg PO DAILY [facility] Docusate Sodium (Colace) 100 mg PO BID HERMELINDO Gabapentin (Neurontin) 300 mg PO Q8HR [facility] Heparin Sodium (Porcine) (Heparin) 5,000 unit SUB-Q Q12HR [facility] Last Admin: 04/09/17 10:48 Dose: 5,000 unit Hydromorphone HCl (Dilaudid) 0.5 mg IV Q3H PRN PRN Reason: Pain , Severe (7-10) Last Admin: 04/09/17 10:48 Dose: 0.5 mg Piperacillin Sod/Tazobactam Sod (Zosyn/Ns 4.5gm/100ml) 4.5 gm in 100 mls @ 200 mls/hr IV Q8HR [facility] Last Admin: 04/09/17 05:30 Dose: 200 mls/hr Norepinephrine (Levophed Drip 4 Mg/Ns 250 Ml) 4 mg in 250 mls @ 7.5 mls/hr IV TITR HERMELINDO; 2 MCG/MIN PRN Reason: Protocol Vancomycin HCl 1,500 mg/ (Sodium Chloride) 515 mls @ 333.333 mls/hr IV Q24HR [facility] Last Admin: 04/09/17 10:56 Dose: 333.333 mls/hr Sodium Chloride (Nacl 0.9% 1000 Ml) 1,000 mls @ 50 mls/hr IV DIRECT HERMELINDO Pantoprazole Sodium (Protonix) 20 mg PO QDAY [facility] Prednisolone Acetate (Pred Forte 1%) 1 drops OU QID [facility] Sertraline HCl (Zoloft) 12.5 mg PO QDAY [facility] Simvastatin (Zocor) 20 mg PO QHS [facility] Vancomycin HCl (Vancomycin Pharmacy To Dose) 1 each IV PKCONSULT [facility] PRN Reason: Protocol Review of Systems Cardiovascular: no chest pain, no palpitations, no shortness of breath Physical Examination Vital Signs Temp Pulse Resp BP Pulse Ox 97.9 F 132 H 44 H 141/72 100 04/08/17 04:05 04/08/17 04:05 04/08/17 04:05 04/08/17 04:05 04/08/17 04:05 General appearance: no acute distress HEENT: Positive: PERRL, Normocephaly, Mucus Membranes Moist Neck: Positive: neck supple, trachea midline Cardiac: Positive: S1/S2, Tachycardia Lungs: Positive: clear to auscultation Neuro: Positive: Grossly Intact Abdomen: Negative: Tender Skin: Positive: Clear. Negative: Rash Musculoskeletal: No Fluid Collection, No Pain, Normal Range of Motion Extremities: Absent: edema Results 04/09/17 12:39 04/09/17 07:52 CBC 04/09/17 04/09/17 Range/Units 07:52 12:39 WBC TNR 28.3 H RBC TNR 3.54 L Hgb TNR 11.2 D Hct TNR 33.2 D Plt Count TNR 80 L Comprehensive Metabolic Panel 04/09/17 Range/Units 07:52 Sodium 143 (137-145) mmol/L Potassium 3.9 D (3.6-5.0) mmol/L Chloride 105.0 (98-107) mmol/L Carbon Dioxide 20 L (22-30) mmol/L BUN 30 H (7-17) mg/dL Creatinine 1.6 H (0.7-1.2) mg/dL Glucose 142 H (65-100) mg/dL Calcium 7.8 L (8.4-10.2) mg/dL - Imaging and Cardiology Echo: report reviewed (07/2013: EF 50%, trace MR, trace TR) EKG: image reviewed EKG interpretations - Telemetry EKG Rhythm: Atrial Flutter - EKG Supraventricular dysrhythmia: atrial flutter Assessment and Plan Assessment: Atrial flutter with RVR --> CVR following 5mg IV lopressor x 1 dose; ? new onset. CAD, s/p PCI and CABG UTI / sepsis ROSA MARIA Acute respiratory failure Lactic acidosis Hypomag - repleted Thrombocytopenia Bacteremia HTN DM GERD H/o CVA with functional quadriplegia, contracted legs, dysphasia and left-sided hemiparesis Plan: F/u echo. Obtain thyroid panel. Initiate lopressor, 25mg PO TID. Hold for HR <60 and/or SBP <100. ABX per primary. If pt maintains HR WNL, may tx out of ICU to telemetry from cardiac standpoint. Systemic anticoagulation in regards to atrial flutter is indicated. However, pt with plt count of 80K this AM. Will defer systemic anticoagulation at this time given thrombocytopenia and repeat CBC in AM. The patient has been seen in conjunction with Dr. Hameed who agrees with the assessment and plan of care.
[2017-04-09 20:43] LABS: INR 1.38 (0.87-1.13)
[2017-04-09 20:44] LABS: Partial Thromboplastin Time 43.4 Sec. (24.2-36.6)
[2017-04-09] MEDS: LOPRESSOR PO SCH (22:14)
[2017-04-09] MEDS: NEURONTIN PO SCH (22:15)
[2017-04-09] MEDS: ZOCOR PO SCH (22:15)
[2017-04-09] MEDS: COLACE PO SCH (22:15)
[2017-04-09] MEDS: PRED FORTE 1% OU SCH (22:16)
[2017-04-10] MEDS: PRED FORTE 1% OU SCH ×4 (00:09→17:46)
[2017-04-10] MEDS: LOPRESSOR PO SCH ×4 (00:11→21:43)
[2017-04-10] MEDS: NACL 0.9% 1000 ML 1,000 ML IV SCH ×3 (02:00→16:29)
[2017-04-10] MEDS: ZOSYN/NS 4.5GM/100ML 4.5 GM/100 ML VIAL IV SCH ×3 (05:58→22:10)
[2017-04-10] MEDS: NEURONTIN PO SCH ×2 (05:58→15:21)
[2017-04-10 06:05] LABS: Hematocrit 33.8 % (30.3-42.9); Hemoglobin 11.2 gm/dl (10.1-14.3); Mean Corpuscular HGB Conc 33 % (30-34); Mean Corpuscular Hemoglobin 31 pg (28-32); Mean Corpuscular Volume 95 fl (79-97); Red Blood Count 3.57 M/mm3 (3.65-5.03); Red Cell Distribution Width 14.9 % (13.2-15.2)
[2017-04-10 06:08] LABS: Platelet Count 99 K/mm3 (140-440); White Blood Count 23.7 K/mm3 (4.5-11.0)
[2017-04-10 06:35] LABS: Calcium 8.2 mg/dL (8.4-10.2); Chloride 106.4 mmol/L (98-107); Potassium 3.9 mmol/L (3.6-5.0)
[2017-04-10] MEDS: DILAUDID IV PRN (06:41)
--- NOTE | 2017-04-10 07:38 | Progress Note ---
Assessment and Plan Assessment and plan: Patient is a 71-year-old woman from [facility] under the care of Dr. Bryce Carrillo with a history of insulin-dependent diabetes mellitus, hypertension, depression, GERD, peripheral neuropathy, glaucoma, acute PA, coronary artery disease status post CABG and stent, COPD, CHF EF 45% on negative stress test December 2016, CVA with functional quadriplegia, contracted legs, dysphasia and left-sided hemiparesis who presents with "possible aspiration, labored breathing, sats fluctuating" per retirement report. Patient has ams with lethargy. Portable chest x-ray read as mild cardiomegaly, segmental atelectasis left lower lobe versus small left pleural effusion. Urinalysis indicative of urinary tract infection. Patient was found to be hypotensive and a central line was placed, Levophed ordered but not given because blood pressure temporarily responded to IV fluid boluses; however, patient has h/o of chf/cad, EF of 45%. Therefore must be careful with IV hydration. -Septic shock likely due to UTI: Treat with IV antibiotics vanc and zosyn, IV fluids, follow cultures, ordered repeat lactic acid for sepsis bundle criteria Will also obtain ID consultation. -Gram negative valentino bactermia- Likely secondary to UTI, Continue abx, Echo, Monitor for Sensitivity when organism identified. , check albumin level -Acute Cystis with right-sided hydronephrosis and obstructing nephrolithiasis- treatment as noted above, urology consult, possible stent today. -Acute hypoxic respiratory failure currently on 2 L oxygen which is new for patient: Consult respiratory therapy, pulmonology input noted, wean oxygen as appropriate, nebulizer treatments -Atrial flutter with RVR -possible new onset. Cardiology following. lopressor 25mg po TID started with holding parameters. per cardiology Will defer systemic anticoagulation at this time given thrombocytopenia and repeat CBC in AM. Would prefer plts >100k prior to initiation of systemic AC. CAD, s/p PCI and CABG- NOTED Above, asa, statin -HTN- controlled -DM- with hyperglycemia. Will initiate insulin for better control -Thrombocytopenia-Improving, monitor closely -Acute encephalopathy due to sepsis: Treat above -Acute kidney injury on Chronic kidney disease stage 3. Likely secondary to shock syndrome, Will continue gentle hydration, if no improvement will get Nephrology input. Check renal U/S, check vancomycin through -Left adrenal adenoma -follow-up outpatient -Infrarenal abdominal aortic aneurysm- 3.3x3.1cm - follow up outpatient. -PAD Moderate to severe- Vascular consult Functional quadriplegia due to CVA with left-sided hemiparesis: Wound care consult, PT/OT eval and treat -Hyperkalemia- resolved -Morbid obesity- BMI 38, NUTRITION CONSULT. -Hypomagnesemia: Replaced -DVT prophylaxis: Subcutaneous heparin full code Disposition: Continued inpatient care, The high probability of a clinically significant, sudden or life threatening deterioration of the [cardiac, renal, infectious] system(s) required my full and direct attention, intervention and personal management. The aggregate critical care time was [35] minutes. This time is in addition to time spent performing reported procedures but includes the following: [x] Data Review and interpretation [x] Patient assessment and monitoring of vital signs [x] Documentation [x] Medication orders and management History Interval history: Patient seen and examined, remained in critical condition, weak and lethargic, unable to provide any information. No other adverse event reported Hospitalist Physical - Physical exam Narrative exam: VITAL SIGNS: Reviewed. GENERAL: The patient appeared ill, morbidly obese, lethargic. Vital signs as documented. HEAD: No signs of head trauma. EYES: Pupils are equal. Extraocular motions intact. Anicteric EARS: Hearing grossly intact. MOUTH: Oropharynx is normal. NECK: No adenopathy, no JVD. CHEST: Chest with diminished breath sounds bilaterally. No wheezes, rales, or rhonchi. CARDIAC: Regular rate and rhythm. S1 and S2, without murmurs, gallops, or rubs. VASCULAR: No Edema. Peripheral pulses normal and equal in all extremities. ABDOMEN: Soft, without detectable tenderness. No sign of distention. No rebound or guarding, and no masses palpated. Bowel Sounds normal. MUSCULOSKELETAL: Good range of motion of all major joints. Extremities without clubbing, cyanosis or edema. NEUROLOGIC EXAM: Alert and oriented x 2. No focal sensory or strength deficits. Speech low pitched, inaudible PSYCHIATRIC: unable to assess. SKIN: Sacaral pressure ulcer stage II, left femoral TLC - Constitutional Vitals: Temp Pulse Resp BP Pulse Ox 98.7 F 98 H 27 H 112/76 93 04/10/17 03:58 04/10/17 06:00 04/10/17 06:00 04/10/17 06:00 04/10/17 04:30 General appearance: Present: no acute distress Results - Labs CBC & Chem 7: 04/10/17 04:00 04/10/17 04:00 Labs: Laboratory Last Values WBC 23.7 K/mm3 (4.5-11.0) H 04/10/17 04:00 RBC 3.57 M/mm3 (3.65-5.03) L 04/10/17 04:00 Hgb 11.2 gm/dl (10.1-14.3) 04/10/17 04:00 Hct 33.8 % (30.3-42.9) 04/10/17 04:00 MCV 95 fl (79-97) 04/10/17 04:00 MCH 31 pg (28-32) 04/10/17 04:00 MCHC 33 % (30-34) 04/10/17 04:00 RDW 14.9 % (13.2-15.2) 04/10/17 04:00 Plt Count 99 K/mm3 (140-440) L 04/10/17 04:00 Add Manual Diff Complete 04/09/17 12:39 Total Counted 100 04/09/17 12:39 Seg Neutrophils % Irrigator Head 04/08/17 04:35 Seg Neuts % (Manual) 65.0 % (40.0-70.0) 04/09/17 12:39 Band Neutrophils % 30.0 % 04/09/17 12:39 Lymphocytes % (Manual) 4.0 % (13.4-35.0) L 04/09/17 12:39 Reactive Lymphs % (Man) 0 % 04/09/17 12:39 Monocytes % (Manual) 1.0 % (0.0-7.3) 04/09/17 12:39 Eosinophils % (Manual) 0 % (0.0-4.3) 04/08/17 04:35 Basophils % (Manual) 0 % (0.0-1.8) 04/08/17 04:35 Metamyelocytes % 0 % 04/09/17 12:39 Myelocytes % 0 % 04/09/17 12:39 Promyelocytes % 0 % 04/09/17 12:39 Blast Cells % 0 % 04/09/17 12:39 Nucleated RBC % Not Reportable 04/09/17 12:39 Seg Neutrophils # Man 18.4 K/mm3 (1.8-7.7) H 04/09/17 12:39 Band Neutrophils # 8.5 K/mm3 04/09/17 12:39 Lymphocytes # (Manual) 1.1 K/mm3 (1.2-5.4) L 04/09/17 12:39 Abs React Lymphs (Man) 0.0 K/mm3 04/09/17 12:39 Monocytes # (Manual) 0.3 K/mm3 (0.0-0.8) 04/09/17 12:39 Eosinophils # (Manual) 0.0 K/mm3 (0.0-0.4) 04/09/17 12:39 Basophils # (Manual) 0.0 K/mm3 (0.0-0.1) 04/09/17 12:39 Metamyelocytes # 0.0 K/mm3 04/09/17 12:39 Myelocytes # 0.0 K/mm3 04/09/17 12:39 Promyelocytes # 0.0 K/mm3 04/09/17 12:39 Blast Cells # 0.0 K/mm3 04/09/17 12:39 WBC Morphology Not Reportable 04/09/17 12:39 Hypersegmented Neuts Not Reportable 04/09/17 12:39 Hyposegmented Neuts Not Reportable 04/09/17 12:39 Hypogranular Neuts Not Reportable 04/09/17 12:39 Smudge Cells Not Reportable 04/09/17 12:39 Toxic Granulation Not Reportable 04/09/17 12:39 Toxic Vacuolation Not Reportable 04/09/17 12:39 Dohle Bodies Not Reportable 04/09/17 12:39 Pelger-Huet Anomaly Not Reportable 04/09/17 12:39 Ortiz Rods Not Reportable 04/09/17 12:39 Platelet Estimate Not Reportable 04/09/17 12:39 Clumped Platelets Not Reportable 04/09/17 12:39 Plt Clumps, EDTA Not Reportable 04/09/17 12:39 Large Platelets Not Reportable 04/09/17 12:39 Giant Platelets Not Reportable 04/09/17 12:39 Platelet Satelliting Not Reportable 04/09/17 12:39 Plt Morphology Comment Not Reportable 04/09/17 12:39 RBC Morphology Normal 04/09/17 12:39 Dimorphic RBCs Not Reportable 04/09/17 12:39 Polychromasia Not Reportable 04/09/17 12:39 Hypochromasia Not Reportable 04/09/17 12:39 Poikilocytosis Not Reportable 04/09/17 12:39 Anisocytosis Not Reportable 04/09/17 12:39 Microcytosis Not Reportable 04/09/17 12:39 Macrocytosis Not Reportable 04/09/17 12:39 Spherocytes Not Reportable 04/09/17 12:39 Pappenheimer Bodies Not Reportable 04/09/17 12:39 Sickle Cells Not Reportable 04/09/17 12:39 Target Cells Not Reportable 04/09/17 12:39 Tear Drop Cells Not Reportable 04/09/17 12:39 Ovalocytes Not Reportable 04/09/17 12:39 Helmet Cells Not Reportable 04/09/17 12:39 [place] Bodies Not Reportable 04/09/17 12:39 [place] Rings Not Reportable 04/09/17 12:39 Tlai Cells Not Reportable 04/09/17 12:39 Bite Cells Not Reportable 04/09/17 12:39 Crenated Cell Not Reportable 04/09/17 12:39 Elliptocytes Not Reportable 04/09/17 12:39 Acanthocytes (Spur) Not Reportable 04/09/17 12:39 Rouleaux Not Reportable 04/09/17 12:39 Hemoglobin C Crystals Not Reportable 04/09/17 12:39 Schistocytes Not Reportable 04/09/17 12:39 Malaria parasites Not Reportable 04/09/17 12:39 [place] Bodies Not Reportable 04/09/17 12:39 Hem Pathologist Commnt No 04/09/17 12:39 PT 17.7 Sec. (12.2-14.9) H 04/09/17 19:53 INR 1.38 (0.87-1.13) H 04/09/17 19:53 APTT 43.4 Sec. (24.2-36.6) H 04/09/17 19:53 POC ABG pH 7.418 (7.35-7.45) 04/08/17 04:26 POC ABG pCO2 27.9 (35-45) L 04/08/17 04:26 POC ABG pO2 75 (80-105) L 04/08/17 04:26 POC ABG HCO3 18.0 04/08/17 04:26 POC ABG Total CO2 19 04/08/17 04:26 POC ABG O2 Sat 96 04/08/17 04:26 POC ABG Base Excess -7 04/08/17 04:26 FiO2 32 % 04/08/17 04:26 Sodium 143 mmol/L (137-145) 04/09/17 07:52 Potassium 3.9 mmol/L (3.6-5.0) 04/10/17 04:00 Chloride 106.4 mmol/L (98-107) 04/10/17 04:00 Carbon Dioxide 21 mmol/L (22-30) L 04/10/17 04:00 Anion Gap 20 mmol/L 04/10/17 04:00 BUN 30 mg/dL (7-17) H 04/10/17 04:00 Creatinine 1.8 mg/dL (0.7-1.2) H 04/10/17 04:00 Estimated GFR 33 ml/min 04/10/17 04:00 BUN/Creatinine Ratio 17 % 04/10/17 04:00 Glucose 164 mg/dL (65-100) H 04/10/17 04:00 POC Glucose 255 (70-105) H 04/10/17 05:33 Lactic Acid 2.80 mmol/L (0.7-2.0) H* 04/09/17 19:53 Calcium 8.2 mg/dL (8.4-10.2) L 04/10/17 04:00 Magnesium 2.00 mg/dL (1.7-2.3) 04/09/17 07:52 Total Bilirubin 1.50 mg/dL (0.1-1.2) H 04/08/17 06:55 AST 39 units/L (5-40) 04/08/17 06:55 ALT 20 units/L (7-56) 04/08/17 06:55 Alkaline Phosphatase 167 units/L (35-129) H 04/08/17 06:55 Total Creatine Kinase 284 units/L (30-135) H 04/08/17 04:35 CK-MB (CK-2) 2.2 ng/mL (0.0-4.0) 04/08/17 04:35 CK-MB (CK-2) Rel Index 0.7 (0-4) 04/08/17 04:35 Troponin T 0.034 ng/mL (0.00-0.029) H 04/08/17 04:35 NT-Pro-B Natriuret Pep 2928 pg/mL (0-900) H 04/08/17 06:36 Total Protein 7.0 g/dL (6.3-8.2) 04/08/17 06:55 Albumin 4.0 g/dL (3.9-5) 04/08/17 06:55 Albumin/Globulin Ratio 1.3 % 04/08/17 06:55 Triglycerides 120 mg/dL (2-149) 04/08/17 04:35 Cholesterol 118 mg/dL (50-199) 04/08/17 04:35 LDL Cholesterol Direct 56 mg/dL (50-130) 04/08/17 04:35 HDL Cholesterol 38 mg/dL (40-59) L 04/08/17 04:35 Cholesterol/HDL Ratio 3.10 % 04/08/17 04:35 Lipase 9 units/L (13-60) L 04/08/17 04:35 TSH 1.280 mlU/mL (0.270-4.200) 04/09/17 19:56 Free T4 1.32 ng/dL (0.76-1.46) 04/09/17 19:55 Urine Color Yellow (Yellow) 04/08/17 05:08 Urine Turbidity Clear (Clear) 04/08/17 05:08 Urine pH 5.0 (5.0-7.0) 04/08/17 05:08 Ur Specific [place] 1.016 (1.003-1.030) 04/08/17 05:08 Urine Protein 100 mg/dl mg/dL (Negative) 04/08/17 05:08 Urine Glucose (UA) Neg mg/dL (Negative) 04/08/17 05:08 Urine Ketones Neg mg/dL (Negative) 04/08/17 05:08 Urine Blood Mod (Negative) 04/08/17 05:08 Urine Nitrite Pos (Negative) 04/08/17 05:08 Urine Bilirubin Neg (Negative) 04/08/17 05:08 Urine Urobilinogen < 2.0 mg/dL (<2.0) 04/08/17 05:08 Ur Leukocyte Esterase Lg (Negative) 04/08/17 05:08 Urine WBC (Auto) > 182.0 /HPF (0.0-6.0) H 04/08/17 05:08 Urine RBC (Auto) 14.0 /HPF (0.0-6.0) 04/08/17 05:08 U Epithel Cells (Auto) 1.0 /HPF (0-13.0) 04/08/17 05:08 Urine Bacteria (Auto) 4+ /HPF (Negative) 04/08/17 05:08 Urine WBC Clumps 3+ /HPF 04/08/17 05:08 Urine Mucus 1+ /HPF 04/08/17 05:08 - Imaging and Cardiology CT scan - abdomen: image reviewed (aaa 3x3cm, right hydronephrosis)
[2017-04-10] MEDS ORDERED: D50W (25GM) Syringe IV PRN (07:48)
--- NOTE | 2017-04-10 08:17 | Cat Scan Report ---
FINAL REPORT EXAM: CT ABDOMEN PELVIS WO CON HISTORY: Abd pain, sepsis TECHNIQUE: CT of the abdomen and pelvis without IV contrast. Coronal and sagittal reconstructed imaging provided. PRIORS: None currently available. FINDINGS: ABDOMEN: Mild linear scarring or discoid subsegmental atelectasis at both lung bases. Mild cardiomegaly. No pericardial effusion. 2.3 x 7.7 cm left adrenal nodule demonstrates an attenuation suggesting adenoma. Right adrenal gland is unremarkable. Prior cholecystectomy. [id number] right hydronephrosis and mild right perinephric stranding noted. 9.3 x 5.1 mm right UPJ stone identified. Punctate 1 mm stone also noted within the right renal pelvis. 2.2 mm stone mid right kidney. No other stones identified. No left nephroureteral stones. No left hydronephrosis. Liver, stomach, spleen, and pancreas are unremarkable. Infrarenal abdominal aortic aneurysm measures 3.3 x 3.1 cm. Right common iliac measures 1.4 cm. Left common iliac measures 1.9 cm. Moderate disease in the common iliacs. Moderate to severe disease in the internal iliacs. Drjy-qp-cyupohnh disease in the external iliacs. Xdtd-je-iqehskce aortic atherosclerotic disease. Moderate to severe disease at the origin of the SMA and both renal arteries. IVC is unremarkable. There is no periaortic or retroperitoneal adenopathy or mass. Mild to moderate stool. Terminal ileum is normal. Appendix is unremarkable. Large and small bowel loops do not demonstrate wall thickening or inflammatory changes. No obstructive pattern. No free air or free fluid. Diastasis recti. Broad-based protrusion. No strangulation. PELVIS: Bladder is collapsed around a Hinojosa catheter and is not well evaluated weighted. Possible stone in the left posterior bladder measuring 3.8 mm. No pelvic mass or adenopathy. Uterus is not clearly visualized and may be atrophic or surgically removed. Inguinal regions are unremarkable. Right femoral central line identified. Bones: No suspicious osseous lesions on this limited examination of the skeleton. Metastatic disease better evaluated with bone scan. Degenerative changes are in the spine. IMPRESSION: Obstructing right UPJ stone. Ihkk-ar-djurpvza right hydronephrosis and mild right perinephric stranding. Smaller right renal stones. Mild cardiomegaly. Left benign adrenal adenoma. Infrarenal abdominal aortic aneurysm. 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 Bladder stone. Rob level II finding report initiated. Moderate to severe atherosclerotic disease.
[2017-04-10] MEDS: DUONEB *Not for PRN Use IH SCH ×4 (08:50→19:36)
[2017-04-10] MEDS: VANCOMYCIN 1,500 MG in NACL 0.9% 500 ML 500 ML IV SCH ×2 (09:19→10:19)
[2017-04-10] MEDS: COLACE PO SCH (09:21)
[2017-04-10] MEDS: ASPIRIN PO SCH (09:21)
[2017-04-10] MEDS: PROTONIX PO SCH (09:22)
[2017-04-10] MEDS: HEPARIN SUB-Q SCH ×2 (09:22→21:42)
[2017-04-10] MEDS: ZOLOFT PO SCH (09:22)
--- NOTE | 2017-04-10 10:40 | Consultation ---
History of Present Illness - Reason for Consult Consult date: 04/10/17 sepsis Requesting physician: KRISH ESTEVEZ - History of Present Illness 71-year-old female with history of CAD s/p LA/stents, diabetes mellitus, hypertension, depression, GERD, peripheral neuropathy, COPD, CHF, CVA with functional quadriplegia, admitted on 04/08/17 from group home due to progressive SOB, AMS/lethragy and fever. Patient is not able to provide a history. History taken from review of records. Upon arrival to the ED she was on a Non-rebreather. In the emergency room, Temperature 97.9. Heart rate 132. Respiratory rate 44. Blood pressure was 141/72 which then went down to 85/56. Initial white count was 8.9 which then went to 28,000. 14% bands. Initial creatinine was 1.3. Lactic acid 4.7. UA was remarkable for large leukocyte esterase and more than 182 white blood cells. CXR showed cardiomegaly with atelectasis of the left lower lobe. CT of the abdomen showed a obstruction of the right UPJ stone with mild to moderate right hydronephrosis, mild right perinephric stranding, AAA and bladder stones. Blood cultures are growing Escherichia coli. Urine culture was positive for more than 100,000 mixed bacteria. Microbiology: Blood cultures: 04/08 E coli Urine cultures: 04/08 >100K mixed bacteria Respiratory cultures: Wound cultures: Stool cultures: Current Antimicrobials: Zosyn 04/08 Vancomycin 04/08 Previous Antimicrobials: Past History Past Medical History: CAD, other (CAD, GERD, Hx of CVA, Obesity) Past Surgical History: CABG Social history: other (Resides at SNF). denies: smoking, alcohol abuse, prescription drug abuse Family history: other (No pulm issues reported) Medications and Allergies Allergies Allergy/AdvReac Type Severity Reaction Status Date / Time codeine Allergy Nausea Verified 04/08/17 05:05 morphine Allergy Nausea Verified 04/08/17 05:05 Home Medications Medication Instructions Recorded Confirmed Last Taken Type traMADol [Ultram 50 MG tab] 50 mg PO Q4HR PRN #60 tablet 07/20/13 04/08/1712/07 Rx Acetaminophen [Acetaminophen ER 650 mg PO Q8HR PRN 12/07/16 04/08/17 12/07/16 History TAB] Butalb/Acetamin/Caff 50-325-40 1 each PO Q4H PRN 12/07/16 04/08/17 12/07/16 History [Fioricet] Cholestyramine 1 pack PO Q12H 12/07/16 04/08/17 Unknown History Diphenoxylate HCl/Atropine 2 tab PO Q6H PRN 12/07/16 04/08/17 12/07/16 History [Lomotil 2.5-0.025 mg Tablet] Magnesium Hydroxide [Milk of 30 ml PO Q12H 12/07/16 04/08/17 12/07/16 History Magnesia] Omeprazole Magnesium [PriLOSEC Otc] 20 mg PO QDAY 12/07/16 04/08/17 12/07/16 History prednisoLONE ACETATE 1% [Pred 1 drops OU QID 12/07/16 04/08/17 12/07/16 History Forte 1%] Docusate Sodium [Colace CAP] 100 mg PO BID capsule 12/09/16 04/08/17 Unknown Rx Gabapentin [Neurontin] 300 mg PO Q8HR capsule 12/09/16 04/08/17 Unknown Rx Labetalol [Normodyne TAB] 150 mg PO BID tablet 12/09/16 04/08/17 Unknown Rx Min Oil/Petrolatum [Artificial 1 applic OU QHS tube 12/09/16 04/08/17 Unknown Rx Tears Ophth Oint] Multivitamin Tab W-MINERAL 1 each PO QDAY tablet 12/09/16 04/08/17 Unknown Rx [Multiple Vitamin/Mineral (Theragran M)] Sertraline [Zoloft] 12.5 mg PO QDAY tablet 12/09/16 04/08/17 Unknown Rx Antacid Suspension 30 ml PO Q4H PRN 04/08/17 04/08/17 Unknown History Aspirin [Aspirin TAB] 1 tab PO DAILY 04/08/17 04/08/17 Unknown History Meloxicam 7.5 mg PO DAILY 04/08/17 04/08/17 Unknown History Norvasc 10 mg PO DAILY 04/08/17 04/08/17 Unknown History Percocet 5/325 mg 1 tab PO Q12H PRN 04/08/17 04/08/17 Unknown History Zocor TAB 20 mg PO HS 04/08/17 04/08/17 Unknown History Active Meds: Active Medications Albuterol (Proventil) 2.5 mg IH Q4HRT PRN PRN Reason: Shortness Of Breath Last Admin: 04/09/17 05:07 Dose: 2.5 mg Albuterol/Ipratropium (Duoneb *Not For Prn Use*) 1 ampul IH TIDRT [facility] Last Admin: 04/09/17 19:44 Dose: 1 ampul Aspirin (Aspirin) 325 mg PO DAILY [facility] Last Admin: 04/10/17 09:21 Dose: Not Given Dextrose (D50w (25gm) Syringe) 50 ml IV PRN PRN PRN Reason: Hypoglycemia Docusate Sodium (Colace) 100 mg PO BID [facility] Last Admin: 04/10/17 09:21 Dose: Not Given Gabapentin (Neurontin) 300 mg PO Q8HR [facility] Last Admin: 04/10/17 05:58 Dose: 300 mg Heparin Sodium (Porcine) (Heparin) 5,000 unit SUB-Q Q12HR [facility] Last Admin: 04/10/17 09:22 Dose: Not Given Hydromorphone HCl (Dilaudid) 0.5 mg IV Q3H PRN PRN Reason: Pain , Severe (7-10) Last Admin: 04/10/17 06:41 Dose: 0.5 mg Piperacillin Sod/Tazobactam Sod (Zosyn/Ns 4.5gm/100ml) 4.5 gm in 100 mls @ 200 mls/hr IV Q8HR [facility] Last Admin: 04/10/17 05:58 Dose: 200 mls/hr Norepinephrine (Levophed Drip 4 Mg/Ns 250 Ml) 4 mg in 250 mls @ 7.5 mls/hr IV TITR HERMELINDO; 2 MCG/MIN PRN Reason: Protocol Vancomycin HCl 1,500 mg/ (Sodium Chloride) 515 mls @ 333.333 mls/hr IV Q24HR [facility] Last Admin: 04/10/17 10:19 Dose: 333.333 mls/hr Sodium Chloride (Nacl 0.9% 1000 Ml) 1,000 mls @ 50 mls/hr IV DIRECT [facility] Last Admin: 04/10/17 02:00 Dose: 50 mls/hr Insulin Aspart (Novolog) 0 units SUB-Q Q6HR HERMELINDO PRN Reason: Protocol Metoprolol Tartrate (Lopressor) 25 mg PO TID [facility] Last Admin: 04/10/17 09:21 Dose: Not Given Pantoprazole Sodium (Protonix) 20 mg PO QDAY [facility] Last Admin: 04/10/17 09:22 Dose: Not Given Prednisolone Acetate (Pred Forte 1%) 1 drops OU QID [facility] Last Admin: 04/10/17 00:09 Dose: Not Given Sertraline HCl (Zoloft) 12.5 mg PO QDAY [facility] Last Admin: 04/10/17 09:22 Dose: Not Given Simvastatin (Zocor) 20 mg PO QHS [facility] Last Admin: 04/09/17 22:15 Dose: 20 mg Vancomycin HCl (Vancomycin Pharmacy To Dose) 1 each IV PKCONSULT [facility] PRN Reason: Protocol Physical Examination - Physical Exam Narrative exam: General appearance: sedated on the vent Eyes: anicteric sclerae, moist conjunctivae; PERRLA HENT: Atraumatic; oropharynx limited with ETT Neck: Trachea midline; supple, no thyromegaly or lymphadenopathy Lungs: coarse BS rd CV: RRR Abdomen: Soft, obese Extremities:LE edema Skin: stage II sacral sore not infected Psych: sedated. Neuro: sedated Lines: right femoral TLC - Constitutional Vitals: Vital Signs Temp Pulse Resp BP Pulse Ox 99.1 F 98 H 27 H 112/76 93 04/10/17 07:57 04/10/17 06:00 04/10/17 06:00 04/10/17 06:00 04/10/17 04:30 Temperature -Last 24 Hours Temperature 99.1 F Temperature 98.7 F Temperature 98.8 F Temperature 98.0 F Temperature 98.7 F Temperature 98.8 F Temperature 98.9 F Results - Labs CBC & Chem 7: 04/10/17 04:00 04/10/17 04:00 Labs: Abnormal lab results 04/09/17 04/09/17 04/09/17 Range/Units 12:39 19:53 19:53 WBC 28.3 H (4.5-11.0) K/mm3 RBC 3.54 L (3.65-5.03) M/mm3 Plt Count 80 L (140-440) K/mm3 Lymphocytes % (Manual) 4.0 L (13.4-35.0) % Seg Neutrophils # Man 18.4 H (1.8-7.7) K/mm3 Lymphocytes # (Manual) 1.1 L (1.2-5.4) K/mm3 PT 17.7 H (12.2-14.9) Sec. INR 1.38 H (0.87-1.13) APTT 43.4 H (24.2-36.6) Sec. Fibrinogen (211-480) mg/dl Carbon Dioxide (22-30) mmol/L BUN (7-17) mg/dL Creatinine (0.7-1.2) mg/dL Glucose (65-100) mg/dL POC Glucose (70-105) Lactic Acid 2.80 H* (0.7-2.0) mmol/L Calcium (8.4-10.2) mg/dL 04/09/17 04/10/17 04/10/17 Range/Units 23:35 04:00 04:00 WBC 23.7 H (4.5-11.0) K/mm3 RBC 3.57 L (3.65-5.03) M/mm3 Plt Count 99 L (140-440) K/mm3 Lymphocytes % (Manual) (13.4-35.0) % Seg Neutrophils # Man (1.8-7.7) K/mm3 Lymphocytes # (Manual) (1.2-5.4) K/mm3 PT (12.2-14.9) Sec. INR (0.87-1.13) APTT (24.2-36.6) Sec. Fibrinogen (211-480) mg/dl Carbon Dioxide 21 L (22-30) mmol/L BUN 30 H (7-17) mg/dL Creatinine 1.8 H (0.7-1.2) mg/dL Glucose 164 H (65-100) mg/dL POC Glucose 219 H (70-105) Lactic Acid (0.7-2.0) mmol/L Calcium 8.2 L (8.4-10.2) mg/dL 04/10/17 04/10/17 Range/Units 05:33 07:45 WBC (4.5-11.0) K/mm3 RBC (3.65-5.03) M/mm3 Plt Count (140-440) K/mm3 Lymphocytes % (Manual) (13.4-35.0) % Seg Neutrophils # Man (1.8-7.7) K/mm3 Lymphocytes # (Manual) (1.2-5.4) K/mm3 PT (12.2-14.9) Sec. INR (0.87-1.13) APTT (24.2-36.6) Sec. Fibrinogen 727 H (211-480) mg/dl Carbon Dioxide (22-30) mmol/L BUN (7-17) mg/dL Creatinine (0.7-1.2) mg/dL Glucose (65-100) mg/dL POC Glucose 255 H (70-105) Lactic Acid (0.7-2.0) mmol/L Calcium (8.4-10.2) mg/dL Assessment and Plan Assessment: 1) Severe Sepsis with septic shock: Present on admission, manifested by tachycardia, hypotension, leukocytosis, bandemia, increased lactate. Etiology most likely complicated UTI/septicemia. Already off pressors. 2) Complicated UTI with right obstructive stone: -CT of the abdomen showed a obstruction of the right UPJ stone with mild to moderate right hydronephrosis, mild right perinephric stranding, AAA and bladder stones. -Urine cx 3) E coli septicemia: from UTI 6) ROSA MARIA on CKD 7) CAD s/p LA/stents 8) Diabetes mellitus, 9) History of CVA with functional quadriplegia, Plan: -follow-up blood cultures, urine culture -obtain C-reactive protein (CRP) -continue zosyn -stop vancomycin - no evidence of MRSA -Urology consult - needs decompression Thank you Dr Estevez for your consultation, will follow up with you. Neeru Carrasquillo MD Infectious Diseases Specialist [facility] ([facility] M [phone] O [phone]
--- NOTE | 2017-04-10 10:55 | Anesthesia Consultation ---
Anesthesia Consult and Med Hx Date of service: 04/10/17 - Airway Anesthetic Teeth Evaluation: Poor ROM Head & Neck: Adequate Mental/Hyoid Distance: Inadequate Mallampati Class: Class II Intubation Access Assessment: Probably Good - Pulmonary Exam CTA: Yes - Cardiac Exam Cardiac Exam: RRR - Pre-Operative Health Status ASA Pre-Surgery Classification: ASA4 Proposed Anesthetic Plan: General - Pulmonary Hx Smoking: No COPD: Yes (left lower lobe atelectsis) Hx Pneumonia: Yes Hx Sleep Apnea: No - Cardiovascular System Hx Hypertension: Yes (ischemic cardiomyopathy) Hx Coronary Artery Disease: Yes (CABG, CAD, PCI, EF 45%) Hx Heart Attack/AMI: Yes Hx Cardia Arrhythmia: Yes (Aflutter intermittent, RBBB) Hx Peripheral Vascular Disease: Yes - Central Nervous System Hx Neuromuscular Disorder: Yes (contracted legs with limited movement) CVA: Yes (left sided weakness) Hx Psychiatric Problems: Yes (depression) - Gastrointestinal Hx Gastroesophageal Reflux Disease: No - Endocrine Hx Renal Disease: Yes (acute renal insufficiency) Hx Insulin Dependent Diabetes: Yes (not well controlled) - Hematic Hx Anemia: No (thrombocytopnia secondary to sepsis) - Other Systems Hx Alcohol Use: No Hx Substance Use: No Hx Cancer: No Hx Obesity: Yes - Additional Comments Anesthesia Medical History Comments: Patient present 04/08 with labored breathing and altered mental status, e. coli + blood culture, bacteremia. Patient hard to arouse 04/10/17, easily confused. Sister, Pantera Rebolledo, is point of contact for consents [phone]
[2017-04-10] MEDS ORDERED: PEPCID IV NR (11:00)
--- NOTE | 2017-04-10 11:00 | Anesthesia Day of Surgery ---
Anesthesia Day of Surgery - Day of Surgery Patient Examined: Yes Patient H&P Reviewed: Yes Patient is NPO: Yes Beta Blockers: No (BP WNL)
[2017-04-10] MEDS ORDERED: NACL BACTERIOSTATIC INFILTRATI ONE (11:44)
--- NOTE | 2017-04-10 12:05 | Consultation ---
History of Present Illness - Reason for Consult Consult date: 04/10/17 - History of Present Illness Patient is a 71-year-old woman from [facility] under the care of Dr. Bryce Carrillo with a history of insulin-dependent diabetes mellitus, hypertension, depression, GERD, peripheral neuropathy, glaucoma, acute GA, coronary artery disease status post stents, COPD, CHF EF 45% on negative stress test December 2016, CVA with functional quadriplegia, contracted legs, dysphasia and left-sided hemiparesis who presents with "possible aspiration, labored breathing, sats fluctuating" per fci report. Patient doesn't give a good history due to her lethargy. She is not complaining of chest pain or severe headaches. She admits to sweating, subjective fevers and malaise/fatigue. CTAP----right hydro with kidney stone A/P rt hydronephrosis needs cysto, rpg, stent Past History Past Medical History: CAD, other (CAD, GERD, Hx of CVA, Obesity) Past Surgical History: CABG Social history: other (Resides at SNF). denies: smoking, alcohol abuse, prescription drug abuse Family history: other (No pulm issues reported) Medications and Allergies Allergies Allergy/AdvReac Type Severity Reaction Status Date / Time codeine Allergy Nausea Verified 04/08/17 05:05 morphine Allergy Nausea Verified 04/08/17 05:05 Home Medications Medication Instructions Recorded Confirmed Last Taken Type traMADol [Ultram 50 MG tab] 50 mg PO Q4HR PRN #60 tablet 07/20/13 04/08/1712/07 Rx Acetaminophen [Acetaminophen ER 650 mg PO Q8HR PRN 12/07/16 04/08/17 12/07/16 History TAB] Butalb/Acetamin/Caff 50-325-40 1 each PO Q4H PRN 12/07/16 04/08/17 12/07/16 History [Fioricet] Cholestyramine 1 pack PO Q12H 12/07/16 04/08/17 Unknown History Diphenoxylate HCl/Atropine 2 tab PO Q6H PRN 12/07/16 04/08/17 12/07/16 History [Lomotil 2.5-0.025 mg Tablet] Magnesium Hydroxide [Milk of 30 ml PO Q12H 06/07/2504/08/17 12/07/16 History Magnesia] Omeprazole Magnesium [PriLOSEC Otc] 20 mg PO QDAY 12/07/16 04/08/17 12/07/16 History prednisoLONE ACETATE 1% [Pred 1 drops OU QID 12/07/16 04/08/17 12/07/16 History Forte 1%] Docusate Sodium [Colace CAP] 100 mg PO BID capsule 12/09/16 04/08/17 Unknown Rx Gabapentin [Neurontin] 300 mg PO Q8HR capsule 12/09/16 04/08/17 Unknown Rx Labetalol [Normodyne TAB] 150 mg PO BID tablet 12/09/16 04/08/17 Unknown Rx Min Oil/Petrolatum [Artificial 1 applic OU QHS tube 12/09/16 04/08/17 Unknown Rx Tears Ophth Oint] Multivitamin Tab W-MINERAL 1 each PO QDAY tablet 12/09/16 04/08/17 Unknown Rx [Multiple Vitamin/Mineral (Theragran M)] Sertraline [Zoloft] 12.5 mg PO QDAY tablet 12/09/16 04/08/17 Unknown Rx Antacid Suspension 30 ml PO Q4H PRN 04/08/17 04/08/17 Unknown History Aspirin [Aspirin TAB] 1 tab PO DAILY 04/08/17 04/08/17 Unknown History Meloxicam 7.5 mg PO DAILY 04/08/17 04/08/17 Unknown History Norvasc 10 mg PO DAILY 04/08/17 04/08/17 Unknown History Percocet 5/325 mg 1 tab PO Q12H PRN 04/08/17 04/08/17 Unknown History Zocor TAB 20 mg PO HS 04/08/17 04/08/17 Unknown History Active Meds: Active Medications Albuterol (Proventil) 2.5 mg IH Q4HRT PRN PRN Reason: Shortness Of Breath Last Admin: 04/09/17 05:07 Dose: 2.5 mg Albuterol/Ipratropium (Duoneb *Not For Prn Use*) 1 ampul IH TIDRT [facility] Last Admin: 04/09/17 19:44 Dose: 1 ampul Aspirin (Aspirin) 325 mg PO DAILY [facility] Last Admin: 04/10/17 09:21 Dose: Not Given Dextrose (D50w (25gm) Syringe) 50 ml IV PRN PRN PRN Reason: Hypoglycemia Docusate Sodium (Colace) 100 mg PO BID [facility] Last Admin: 04/10/17 09:21 Dose: Not Given Famotidine (Pepcid) 20 mg IV PREOP NR Gabapentin (Neurontin) 300 mg PO Q8HR [facility] Last Admin: 04/10/17 05:58 Dose: 300 mg Heparin Sodium (Porcine) (Heparin) 5,000 unit SUB-Q Q12HR [facility] Last Admin: 04/10/17 09:22 Dose: Not Given Hydromorphone HCl (Dilaudid) 0.5 mg IV Q3H PRN PRN Reason: Pain , Severe (7-10) Last Admin: 04/10/17 06:41 Dose: 0.5 mg Piperacillin Sod/Tazobactam Sod (Zosyn/Ns 4.5gm/100ml) 4.5 gm in 100 mls @ 200 mls/hr IV Q8HR [facility] Last Admin: 04/10/17 05:58 Dose: 200 mls/hr Norepinephrine (Levophed Drip 4 Mg/Ns 250 Ml) 4 mg in 250 mls @ 7.5 mls/hr IV TITR HERMELINDO; 2 MCG/MIN PRN Reason: Protocol Sodium Chloride (Nacl 0.9% 1000 Ml) 1,000 mls @ 50 mls/hr IV DIRECT [facility] Last Admin: 04/10/17 12:01 Dose: 50 mls/hr Sodium Chloride (Nacl 0.9% 1000 Ml) 1,000 mls @ 42 mls/hr IV DIRECT HERMELINDO Insulin Aspart (Novolog) 0 units SUB-Q Q6HR [facility] PRN Reason: Protocol Metoprolol Tartrate (Lopressor) 25 mg PO TID [facility] Last Admin: 04/10/17 09:21 Dose: Not Given Pantoprazole Sodium (Protonix) 20 mg PO QDAY [facility] Last Admin: 04/10/17 09:22 Dose: Not Given Prednisolone Acetate (Pred Forte 1%) 1 drops OU QID [facility] Last Admin: 04/10/17 10:00 Dose: 1 drops Sertraline HCl (Zoloft) 12.5 mg PO QDAY [facility] Last Admin: 04/10/17 09:22 Dose: Not Given Simvastatin (Zocor) 20 mg PO QHS [facility] Last Admin: 04/09/17 22:15 Dose: 20 mg Vancomycin HCl (Vancomycin Pharmacy To Dose) 1 each IV PKCONSULT [facility] PRN Reason: Protocol Exam - Constitutional Vitals: Temp Pulse Resp BP Pulse Ox 98.1 F 87 17 96/56 99 04/10/17 11:25 04/10/17 10:00 04/10/17 10:00 04/10/17 10:00 04/10/17 10:00 Results - Labs CBC & Chem 7: 04/10/17 04:00 04/10/17 04:00 Labs: Abnormal lab results 04/09/17 04/09/17 04/09/17 Range/Units 12:39 19:53 19:53 WBC 28.3 H (4.5-11.0) K/mm3 RBC 3.54 L (3.65-5.03) M/mm3 Plt Count 80 L (140-440) K/mm3 Lymphocytes % (Manual) 4.0 L (13.4-35.0) % Seg Neutrophils # Man 18.4 H (1.8-7.7) K/mm3 Lymphocytes # (Manual) 1.1 L (1.2-5.4) K/mm3 PT 17.7 H (12.2-14.9) Sec. INR 1.38 H (0.87-1.13) APTT 43.4 H (24.2-36.6) Sec. Fibrinogen (211-480) mg/dl Carbon Dioxide (22-30) mmol/L BUN (7-17) mg/dL Creatinine (0.7-1.2) mg/dL Glucose (65-100) mg/dL POC Glucose (70-105) Lactic Acid 2.80 H* (0.7-2.0) mmol/L Calcium (8.4-10.2) mg/dL 04/09/17 04/10/17 04/10/17 Range/Units 23:35 04:00 04:00 WBC 23.7 H (4.5-11.0) K/mm3 RBC 3.57 L (3.65-5.03) M/mm3 Plt Count 99 L (140-440) K/mm3 Lymphocytes % (Manual) (13.4-35.0) % Seg Neutrophils # Man (1.8-7.7) K/mm3 Lymphocytes # (Manual) (1.2-5.4) K/mm3 PT (12.2-14.9) Sec. INR (0.87-1.13) APTT (24.2-36.6) Sec. Fibrinogen (211-480) mg/dl Carbon Dioxide 21 L (22-30) mmol/L BUN 30 H (7-17) mg/dL Creatinine 1.8 H (0.7-1.2) mg/dL Glucose 164 H (65-100) mg/dL POC Glucose 219 H (70-105) Lactic Acid (0.7-2.0) mmol/L Calcium 8.2 L (8.4-10.2) mg/dL 04/10/17 04/10/17 04/10/17 Range/Units 05:33 07:45 11:20 WBC (4.5-11.0) K/mm3 RBC (3.65-5.03) M/mm3 Plt Count (140-440) K/mm3 Lymphocytes % (Manual) (13.4-35.0) % Seg Neutrophils # Man (1.8-7.7) K/mm3 Lymphocytes # (Manual) (1.2-5.4) K/mm3 PT (12.2-14.9) Sec. INR (0.87-1.13) APTT (24.2-36.6) Sec. Fibrinogen 727 H (211-480) mg/dl Carbon Dioxide (22-30) mmol/L BUN (7-17) mg/dL Creatinine (0.7-1.2) mg/dL Glucose (65-100) mg/dL POC Glucose 255 H 202 H (70-105) Lactic Acid (0.7-2.0) mmol/L Calcium (8.4-10.2) mg/dL 04/10/17 Range/Units 11:58 WBC (4.5-11.0) K/mm3 RBC (3.65-5.03) M/mm3 Plt Count (140-440) K/mm3 Lymphocytes % (Manual) (13.4-35.0) % Seg Neutrophils # Man (1.8-7.7) K/mm3 Lymphocytes # (Manual) (1.2-5.4) K/mm3 PT (12.2-14.9) Sec. INR (0.87-1.13) APTT (24.2-36.6) Sec. Fibrinogen (211-480) mg/dl Carbon Dioxide (22-30) mmol/L BUN (7-17) mg/dL Creatinine (0.7-1.2) mg/dL Glucose (65-100) mg/dL POC Glucose 183 H (70-105) Lactic Acid (0.7-2.0) mmol/L Calcium (8.4-10.2) mg/dL
[2017-04-10] MEDS: NOVOLOG SUB-Q SCH ×2 (12:14→17:48)
[2017-04-10] MEDS ORDERED: SUBLIMAZE ONE (12:28)
[2017-04-10] MEDS ORDERED: AMIDATE IV ONE (12:28)
[2017-04-10] MEDS ORDERED: WATER FOR IRRIG STERILE IR ONE (12:45)
[2017-04-10] MEDS ORDERED: OMNIPAQUE 300 MG/50 ML (CATH LAB) IV ONE (12:49)
[2017-04-10] MEDS ORDERED: DIPRIVAN 10 MG/ML IV ONE (12:53)
--- NOTE | 2017-04-10 13:02 | Post Operative Note ---
Pre-op diagnosis: rt hydro & stone, sepsis Post-op diagnosis: same Procedure: cysto, rpg, stent (6x 24 with short internal string) Anesthesia: SYDNEYA Surgeon: UNIQUE ESTRADA Estimated blood loss: none Pathology: list (culture) Specimen disposition: to lab Condition: stable Disposition: PACU (home with abx, needs out pt ESWL)
--- NOTE | 2017-04-10 13:12 | Progress Note ---
Assessment and Plan Assessment: Transient atrial flutter with RVR --> SR CAD, s/p PCI and CABG UTI / sepsis Right hydronephrosis - s/p cysto, rpg, stent (6x 24 with short internal string) this AM ROSA MARIA Acute respiratory failure Lactic acidosis Hypomag - repleted Thrombocytopenia - improving Bacteremia HTN DM GERD H/o CVA with functional quadriplegia, contracted legs, dysphasia and left-sided hemiparesis Plan: F/u echo. Thyroid panel WNL. Cont lopressor, 25mg PO TID. Hold for HR <60 and/or SBP <100. ABX per primary. May tx out of ICU to telemetry from cardiac standpoint. Systemic anticoagulation in regards to atrial flutter is indicated as pt has CHADS of at least 6. However, pt with thrombocytopenia (plts 80K ->99K), and pt is currently in SR. Will defer systemic anticoagulation at this time given thrombocytopenia and repeat CBC in AM. Would prefer plts >100k prior to initiation of systemic AC. Assessment and plan reviewed with pt at bedside. The patient has been seen in conjunction with Dr. Hameed who agrees with the assessment and plan of care. Subjective Date of service: 04/10/17 Principal diagnosis: AFlutter RVR ; sepsis Interval history: Pt resting in bed, no cardiac complaints. In SR on tele, BPs WNL. Objective Last Vital Signs Temp 97.8 F 04/10/17 12:20 Pulse 88 04/10/17 12:20 Resp 16 04/10/17 12:20 BP 115/70 04/10/17 12:20 Pulse Ox 97 04/10/17 12:20 - Physical Examination HEENT: Positive: PERRL, Normocephaly, Mucus Membranes Moist Neck: Positive: neck supple, trachea midline Cardiac: Positive: Reg Rate and Rhythm, S1/S2 Lungs: Positive: clear to auscultation Neuro: Positive: Grossly Intact Abdomen: Negative: Tender Skin: Positive: Clear. Negative: Rash Musculoskeletal: No Fluid Collection, No Pain, Normal Range of Motion Extremities: Absent: edema - Labs and Meds Coagulation 04/09/17 Range/Units 19:53 PT 17.7 H (12.2-14.9) Sec. INR 1.38 H (0.87-1.13) APTT 43.4 H (24.2-36.6) Sec. CBC 10/03/17 Range/Units 04:00 WBC 23.7 H (4.5-11.0) K/mm3 RBC 3.57 L (3.65-5.03) M/mm3 Hgb 11.2 (10.1-14.3) gm/dl Hct 33.8 (30.3-42.9) % Plt Count 99 L (140-440) K/mm3 Comprehensive Metabolic Panel 04/10/17 Range/Units 04:00 Potassium 3.9 (3.6-5.0) mmol/L Chloride 106.4 (98-107) mmol/L Carbon Dioxide 21 L (22-30) mmol/L BUN 30 H (7-17) mg/dL Creatinine 1.8 H (0.7-1.2) mg/dL Glucose 164 H (65-100) mg/dL Calcium 8.2 L (8.4-10.2) mg/dL - Imaging and Cardiology EKG: image reviewed Echo: report reviewed (07/2013: EF 50%, trace MR, trace TR)
--- NOTE | 2017-04-10 13:24 | Operative Report ---
PREOPERATIVE DIAGNOSIS: Right proximal ureteral stone with hydronephrosis and sepsis. POSTOPERATIVE DIAGNOSES: Right proximal ureteral stone with hydronephrosis and sepsis. PROCEDURE: Cystoscopy, right retrograde pyelogram, right double-J stent placement (6-Nigerian 24 cm with short internal string). SURGEON: Brian Smith MD ANESTHESIA: General. ESTIMATED BLOOD LOSS: Minimal. FLUIDS: Crystalloid. COMPLICATIONS: No complications. INDICATIONS: This 71-year-old female, who was [facility] the [facility] from [facility] with sepsis. CT of abdomen and pelvis revealed proximal right ureteral stone with hydronephrosis. Discussed options, she agreed to proceed with surgical intervention. DESCRIPTION OF PROCEDURE: The patient was taken to the operative suite, placed in the supine position. After adequate general anesthesia, placed in a dorsal lithotomy position, prepped and draped in a sterile fashion. Pancystourethroscopy was performed with 22-Nigerian Storz cystoscope. Edema was noted in the bladder. No tumors. Could not see the left ureteral orifice. Right retrograde pyelogram was obtained, 8-[place] catheter and 8 mL of contrast. Normal lower ureter; however, there was obvious 7 mm stone in the proximal ureter with hydronephrosis. A 0.035 Glidewire was placed followed by 6-Nigerian 24 cm double-J stent with an internal string. Pus could be seen coming from the stent. Urine culture was obtained. Hinojosa catheter was placed. She was extubated and taken to recovery room. JOB# [id number] JAZ/GREY
--- NOTE | 2017-04-10 14:03 | Post Anesthesia Evaluation ---
- Post Anesthesia Evaluation Patient Participated: Yes Airway Patent: Yes Stable Respiratory Function: Yes Nausea/Vomiting: No Temp > 96.8F: Yes Pain Manageable: Yes Adequeate Hydration: Yes Anesthesia Complications: No Block Receding Appropriately: Not Applicable Patient on Ventilator: No
[2017-04-10] MEDS ORDERED: DILAUDID ONE (14:20)
--- NOTE | 2017-04-10 14:20 | Fluoroscopy Report ---
Retrograde pyelogram: Renal calculus. The preliminary image demonstrates a right femoral venous catheter. There is motion limiting evaluation for possible calculus. Injection of contrast into the right ureter demonstrates an unremarkable ureter to the UP junction. Opacification above this level is limited. Subsequent images demonstrate placement of an internal stent. No other information obtained.
[2017-04-10] MEDS ORDERED: DILAUDID IV PRN (14:23)
--- NOTE | 2017-04-10 15:34 | Progress Note ---
Assessment and Plan Imp: 1. UTI -> pyelonephritis/hydronephrosis 2. Severe sepsis 3. ROSA MARIA 4. Acute respiratory failure, hypoxia 5. Lactic acidosis, better 6. Thrombocytopenia, likely due to sepsis 7. Bacteremia [facility]. [facility]: 1. Vanco/Zosyn; f/u cultures 2. Gentle hydration given rising Cr; CXR in AM to ensure not getting volume overloaded 3. Order to change espitia 4. F/u urology recs s/p decompression of urinary system 5. Monitor platelets which are improving 6. Would remove R fem CVL NICO; either replace with PIVs or PICC 7. Would monitor in ICU 24 more hours Plan of care reviewed w/ patient, she understands/agrees; no family present Complex decision-making Subjective Date of service: 04/10/17 Principal diagnosis: AFlutter RVR ; sepsis Interval history: Had urologic procedure re: obstructing renal stone/hydronephrosis today. SOB is stable. On NC. No other new complaints. HD stable. Active Medications Albuterol (Proventil) 2.5 mg IH Q4HRT PRN PRN Reason: Shortness Of Breath Last Admin: 04/09/17 05:07 Dose: 2.5 mg Albuterol/Ipratropium (Duoneb *Not For Prn Use*) 1 ampul IH TIDRT [facility] Last Admin: 04/09/17 19:44 Dose: 1 ampul Aspirin (Aspirin) 325 mg PO DAILY [facility] Last Admin: 04/10/17 09:21 Dose: Not Given Dextrose (D50w (25gm) Syringe) 50 ml IV PRN PRN PRN Reason: Hypoglycemia Docusate Sodium (Colace) 100 mg PO BID [facility] Last Admin: 04/10/17 09:21 Dose: Not Given Gabapentin (Neurontin) 300 mg PO Q8HR [facility] Last Admin: 04/10/17 15:21 Dose: 300 mg Heparin Sodium (Porcine) (Heparin) 5,000 unit SUB-Q Q12HR [facility] Last Admin: 04/10/17 09:22 Dose: Not Given Hydromorphone HCl (Dilaudid) 0.5 mg IV Q3H PRN PRN Reason: Pain , Severe (7-10) Last Admin: 04/10/17 06:41 Dose: 0.5 mg Hydromorphone HCl (Dilaudid) 0.25 mg IV Q10MIN PRN PRN Reason: Pain, Moderate (4-6) Stop: 04/10/17 18:00 Last Admin: 04/10/17 14:21 Dose: 0.25 mg Piperacillin Sod/Tazobactam Sod (Zosyn/Ns 4.5gm/100ml) 4.5 gm in 100 mls @ 200 mls/hr IV Q8HR [facility] Last Admin: 04/10/17 15:21 Dose: 200 mls/hr Sodium Chloride (Nacl 0.9% 1000 Ml) 1,000 mls @ 42 mls/hr IV DIRECT [facility] Insulin Aspart (Novolog) 0 units SUB-Q Q6HR [facility] PRN Reason: Protocol Last Admin: 04/10/17 12:14 Dose: Not Given Metoprolol Tartrate (Lopressor) 25 mg PO TID [facility] Last Admin: 04/10/17 15:21 Dose: 25 mg Pantoprazole Sodium (Protonix) 20 mg PO QDAY [facility] Last Admin: 04/10/17 09:22 Dose: Not Given Prednisolone Acetate (Pred Forte 1%) 1 drops OU QID [facility] Last Admin: 04/10/17 15:21 Dose: 1 drops Sertraline HCl (Zoloft) 12.5 mg PO QDAY [facility] Last Admin: 04/10/17 09:22 Dose: Not Given Simvastatin (Zocor) 20 mg PO QHS [facility] Last Admin: 04/09/17 22:15 Dose: 20 mg Objective Vital Signs - 12hr 04/10/17 04/10/17 04/10/17 03:30 03:39 03:40 Temperature Pulse Rate 91 H 93 H Pulse Rate [ 93 H Anterior Bilateral Throughout] Respiratory 22 24 Rate Respiratory 21 Rate [Anterior Bilateral Throughout] Blood Pressure 131/79 131/79 O2 Sat by Pulse 96 95 Oximetry 04/10/17 04/10/17 04/10/17 03:50 03:58 04:00 Temperature 98.7 F Pulse Rate 95 H 98 H Pulse Rate [ Anterior Bilateral Throughout] Respiratory 21 28 H Rate Respiratory Rate [Anterior Bilateral Throughout] Blood Pressure 131/79 128/75 O2 Sat by Pulse 95 97 Oximetry 04/10/17 04/10/17 04/10/17 04:10 04:20 04:30 Temperature Pulse Rate 94 H 101 H Pulse Rate [ Anterior Bilateral Throughout] Respiratory 23 29 H Rate Respiratory Rate [Anterior Bilateral Throughout] Blood Pressure 128/75 131/79 131/79 O2 Sat by Pulse 96 96 93 Oximetry 04/10/17 04/10/17 04/10/17 04:40 04:50 05:00 Temperature Pulse Rate 92 H 93 H 90 Pulse Rate [ Anterior Bilateral Throughout] Respiratory 20 25 H 25 H Rate Respiratory Rate [Anterior Bilateral Throughout] Blood Pressure 131/79 131/79 127/67 O2 Sat by Pulse Oximetry 04/10/17 04/10/17 04/10/17 05:10 05:20 05:30 Temperature Pulse Rate 88 96 H 90 Pulse Rate [ Anterior Bilateral Throughout] Respiratory 24 25 H 24 Rate Respiratory Rate [Anterior Bilateral Throughout] Blood Pressure 127/67 127/67 127/67 O2 Sat by Pulse Oximetry 04/10/17 04/10/17 04/10/17 05:40 05:50 06:00 Temperature Pulse Rate 94 H 94 H 98 H Pulse Rate [ Anterior Bilateral Throughout] Respiratory 25 H 23 27 H Rate Respiratory Rate [Anterior Bilateral Throughout] Blood Pressure 127/67 127/67 112/76 O2 Sat by Pulse Oximetry 04/10/17 04/10/17 04/10/17 07:00 07:57 08:00 Temperature 99.1 F Pulse Rate 93 H 91 H Pulse Rate [ Anterior Bilateral Throughout] Respiratory 22 17 Rate Respiratory Rate [Anterior Bilateral Throughout] Blood Pressure 119/78 119/78 O2 Sat by Pulse 98 Oximetry 04/10/17 04/10/17 04/10/17 09:00 10:00 11:00 Temperature Pulse Rate 91 H 112 H 87 Pulse Rate [ Anterior Bilateral Throughout] Respiratory 17 17 16 Rate Respiratory Rate [Anterior Bilateral Throughout] Blood Pressure 92/52 96/56 110/75 O2 Sat by Pulse 97 99 99 Oximetry 04/10/17 04/10/17 04/10/17 11:25 11:40 12:00 Temperature 98.1 F 97.8 F Pulse Rate 88 Pulse Rate [ Anterior Bilateral Throughout] Respiratory 16 Rate Respiratory Rate [Anterior Bilateral Throughout] Blood Pressure 115/70 O2 Sat by Pulse 100 97 Oximetry 04/10/17 04/10/17 04/10/17 12:20 13:09 13:15 Temperature 97.8 F 98.6 F Pulse Rate 88 110 H 101 H Pulse Rate [ Anterior Bilateral Throughout] Respiratory 16 25 H 24 Rate Respiratory Rate [Anterior Bilateral Throughout] Blood Pressure 115/70 164/97 137/76 O2 Sat by Pulse 97 99 97 Oximetry 04/10/17 04/10/17 04/10/17 13:20 13:25 13:30 Temperature Pulse Rate 94 H 94 H 91 H Pulse Rate [ Anterior Bilateral Throughout] Respiratory 20 20 17 Rate Respiratory Rate [Anterior Bilateral Throughout] Blood Pressure 126/74 135/82 139/89 O2 Sat by Pulse 97 97 97 Oximetry 04/10/17 04/10/17 04/10/17 13:45 14:00 14:15 Temperature Pulse Rate 94 H 93 H 95 H Pulse Rate [ Anterior Bilateral Throughout] Respiratory 18 18 18 Rate Respiratory Rate [Anterior Bilateral Throughout] Blood Pressure 131/76 136/74 150/68 O2 Sat by Pulse 97 97 95 Oximetry 04/10/17 04/10/17 14:25 15:21 Temperature 97.9 F Pulse Rate 91 H 83 Pulse Rate [ Anterior Bilateral Throughout] Respiratory 18 Rate Respiratory Rate [Anterior Bilateral Throughout] Blood Pressure 108/61 112/70 O2 Sat by Pulse 96 Oximetry Constitutional: alert, other (awake) Eyes: non-icteric ENT: oropharynx moist Neck: supple Effort: mildly labored Ascultation: Bilateral: wheezes (faint expiratory wheezes bilaterally) Cardiovascular: regular rate and rhythm (no mrg) Gastrointestinal: hypoactive bowel sounds, soft, tender (diffusely), other ( distended) Integumentary: normal Extremities: no cyanosis, edema (trace lower extremity edema) Neurologic: normal mental status, pupils equal and round, other (L sided hemiparesis) Psychiatric: mood appropriate, affect normal CBC and BMP: 04/10/17 04:00 04/10/17 04:00 ABG, PT/INR, D-dimer: ABG POC ABG pH 7.418 (7.35-7.45) 04/08/17 04:26 POC ABG pCO2 27.9 (35-45) L 04/08/17 04:26 POC ABG pO2 75 (80-105) L 04/08/17 04:26 POC ABG HCO3 18.0 04/08/17 04:26 POC ABG Total CO2 19 04/08/17 04:26 POC ABG O2 Sat 96 04/08/17 04:26 PT/INR, D-dimer PT 17.7 Sec. (12.2-14.9) H 04/09/17 19:53 INR 1.38 (0.87-1.13) H 04/09/17 19:53 Abnormal lab findings: Abnormal Labs 04/08/17 04/09/17 04/09/17 08:55 00:03 04:54 WBC RBC Plt Count Lymphocytes % (Manual) Seg Neutrophils # Man Lymphocytes # (Manual) PT INR APTT Fibrinogen Carbon Dioxide BUN Creatinine Glucose POC Glucose 163 H 156 H Lactic Acid 5.70 H* Calcium C-Reactive Protein 04/09/17 04/09/17 04/09/17 07:52 12:39 19:53 WBC 28.3 H RBC 3.54 L Plt Count 80 L Lymphocytes % (Manual) 4.0 L Seg Neutrophils # Man 18.4 H Lymphocytes # (Manual) 1.1 L PT 17.7 H INR 1.38 H APTT 43.4 H Fibrinogen Carbon Dioxide 20 L BUN 30 H Creatinine 1.6 H Glucose 142 H POC Glucose Lactic Acid Calcium 7.8 L C-Reactive Protein 04/09/17 04/09/17 04/10/17 19:53 23:35 04:00 WBC 23.7 H RBC 3.57 L Plt Count 99 L Lymphocytes % (Manual) Seg Neutrophils # Man Lymphocytes # (Manual) PT INR APTT Fibrinogen Carbon Dioxide BUN Creatinine Glucose POC Glucose 219 H Lactic Acid 2.80 H* Calcium C-Reactive Protein 04/10/17 04/10/17 04/10/17 04:00 04:00 05:33 WBC RBC Plt Count Lymphocytes % (Manual) Seg Neutrophils # Man Lymphocytes # (Manual) PT INR APTT Fibrinogen Carbon Dioxide 21 L BUN 30 H Creatinine 1.8 H Glucose 164 H POC Glucose 255 H Lactic Acid Calcium 8.2 L C-Reactive Protein 34.00 H 04/10/17 04/10/17 04/10/17 07:45 11:20 11:58 WBC RBC Plt Count Lymphocytes % (Manual) Seg Neutrophils # Man Lymphocytes # (Manual) PT INR APTT Fibrinogen 727 H Carbon Dioxide BUN Creatinine Glucose POC Glucose 202 H 183 H Lactic Acid Calcium C-Reactive Protein Chest x-ray: report reviewed, image reviewed
--- NOTE | 2017-04-10 16:53 | Consultation ---
History of Present Illness - Reason for Consult Consult date: 04/10/17 acute renal failure Requesting physician: KRISH ESTEVEZ - History of Present Illness Ms Blair is a 71 y/o F with a PMH of DM2, HTN, GERD, CVA, CAD s/p stents, COPD , CHF, neuropathy who has been admitted to the [facility] from her NH of possible aspiration and SHOB subsequently found to have Sepsis and UTI inpatient. Pt on had a Cr level of 0.7. On admission she had a Cr level of 1.3 and today it is 1.8. She had a CT of her abdomen done that showed Mild to moderate right hydronephrosis with a right UPJ stone. Pt has been seen by Urology inpatient and she had a cystoscopy done today with RPG and stent placement. Pt on admission was also found to have low BP. She currently denies CP, SHOB, fever, N /V, diarrhea. ROS: As in HPI otherwise 12 point review of systems -ve Past History Past Medical History: CAD, other (CAD, GERD, Hx of CVA, Obesity) Past Surgical History: CABG Social history: other (Resides at SNF). denies: smoking, alcohol abuse, prescription drug abuse Family history: no significant family history, other ([place]) Medications and Allergies Allergies Allergy/AdvReac Type Severity Reaction Status Date / Time codeine Allergy Nausea Verified 04/08/17 05:05 morphine Allergy Nausea Verified 04/08/17 05:05 Home Medications Medication Instructions Recorded Confirmed Last Taken Type traMADol [Ultram 50 MG tab] 50 mg PO Q4HR PRN #60 tablet 07/20/13 04/08/1712/07 Rx Acetaminophen [Acetaminophen ER 650 mg PO Q8HR PRN 12/07/16 04/08/17 12/07/16 History TAB] Butalb/Acetamin/Caff 50-325-40 1 each PO Q4H PRN 12/07/16 04/08/17 12/07/16 History [Fioricet] Cholestyramine 1 pack PO Q12H 12/07/16 04/08/17 Unknown History Diphenoxylate HCl/Atropine 2 tab PO Q6H PRN 12/07/16 04/08/17 12/07/16 History [Lomotil 2.5-0.025 mg Tablet] Magnesium Hydroxide [Milk of 30 ml PO Q12H 12/07/16 04/08/17 12/07/16 History Magnesia] Omeprazole Magnesium [PriLOSEC Otc] 20 mg PO QDAY 12/07/16 04/08/17 12/07/16 History prednisoLONE ACETATE 1% [Pred 1 drops OU QID 12/07/16 04/08/17 12/07/16 History Forte 1%] Docusate Sodium [Colace CAP] 100 mg PO BID capsule 12/09/16 04/08/17 Unknown Rx Gabapentin [Neurontin] 300 mg PO Q8HR capsule 12/09/16 04/08/17 Unknown Rx Labetalol [Normodyne TAB] 150 mg PO BID tablet 12/09/16 04/08/17 Unknown Rx Min Oil/Petrolatum [Artificial 1 applic OU QHS tube 12/09/16 04/08/17 Unknown Rx Tears Ophth Oint] Multivitamin Tab W-MINERAL 1 each PO QDAY tablet 12/09/16 04/08/17 Unknown Rx [Multiple Vitamin/Mineral (Theragran M)] Sertraline [Zoloft] 12.5 mg PO QDAY tablet 12/09/16 04/08/17 Unknown Rx Antacid Suspension 30 ml PO Q4H PRN 04/08/17 04/08/17 Unknown History Aspirin [Aspirin TAB] 1 tab PO DAILY 04/08/17 04/08/17 Unknown History Meloxicam 7.5 mg PO DAILY 04/08/17 04/08/17 Unknown History Norvasc 10 mg PO DAILY 04/08/17 04/08/17 Unknown History Percocet 5/325 mg 1 tab PO Q12H PRN 04/08/17 04/08/17 Unknown History Zocor TAB 20 mg PO HS 04/08/17 04/08/17 Unknown History Active Meds: Active Medications Albuterol (Proventil) 2.5 mg IH Q4HRT PRN PRN Reason: Shortness Of Breath Last Admin: 04/09/17 05:07 Dose: 2.5 mg Albuterol/Ipratropium (Duoneb *Not For Prn Use*) 1 ampul IH TIDRT [facility] Last Admin: 04/09/17 19:44 Dose: 1 ampul Aspirin (Aspirin) 325 mg PO DAILY [facility] Last Admin: 04/10/17 09:21 Dose: Not Given Dextrose (D50w (25gm) Syringe) 50 ml IV PRN PRN PRN Reason: Hypoglycemia Docusate Sodium (Colace) 100 mg PO BID [facility] Last Admin: 04/10/17 09:21 Dose: Not Given Gabapentin (Neurontin) 300 mg PO Q8HR [facility] Last Admin: 04/10/17 15:21 Dose: 300 mg Heparin Sodium (Porcine) (Heparin) 5,000 unit SUB-Q Q12HR [facility] Last Admin: 04/10/17 09:22 Dose: Not Given Hydromorphone HCl (Dilaudid) 0.5 mg IV Q3H PRN PRN Reason: Pain , Severe (7-10) Last Admin: 04/10/17 06:41 Dose: 0.5 mg Hydromorphone HCl (Dilaudid) 0.25 mg IV Q10MIN PRN PRN Reason: Pain, Moderate (4-6) Stop: 04/10/17 18:00 Last Admin: 04/10/17 14:21 Dose: 0.25 mg Piperacillin Sod/Tazobactam Sod (Zosyn/Ns 4.5gm/100ml) 4.5 gm in 100 mls @ 200 mls/hr IV Q8HR [facility] Last Admin: 04/10/17 15:21 Dose: 200 mls/hr Sodium Chloride (Nacl 0.9% 1000 Ml) 1,000 mls @ 42 mls/hr IV DIRECT [facility] Last Admin: 04/10/17 16:29 Dose: 42 mls/hr Insulin Aspart (Novolog) 0 units SUB-Q Q6HR [facility] PRN Reason: Protocol Last Admin: 04/10/17 12:14 Dose: Not Given Metoprolol Tartrate (Lopressor) 25 mg PO TID [facility] Last Admin: 04/10/17 15:21 Dose: 25 mg Pantoprazole Sodium (Protonix) 20 mg PO QDAY [facility] Last Admin: 04/10/17 09:22 Dose: Not Given Prednisolone Acetate (Pred Forte 1%) 1 drops OU QID [facility] Last Admin: 04/10/17 15:21 Dose: 1 drops Sertraline HCl (Zoloft) 12.5 mg PO QDAY [facility] Last Admin: 04/10/17 09:22 Dose: Not Given Simvastatin (Zocor) 20 mg PO QHS [facility] Last Admin: 04/09/17 22:15 Dose: 20 mg Exam - Vital Signs Vital signs: Vital Signs Temp Pulse Resp BP Pulse Ox 97.9 F 132 H 44 H 141/72 100 04/08/17 04:05 04/08/17 04:05 04/08/17 04:05 04/08/17 04:05 04/08/17 04:05 - Physical Exam Narrative exam: GE: Awake HEENT: PERRLA Neck: No JVD Chest: BL Wheezes and Crackles CVS: RRR Abd: Soft/BS+ Ext: No cce Neuro: Left hemiparesis Results - Lab Results 04/10/17 04:00 04/10/17 04:00 Most recent lab results Calcium 8.2 mg/dL (8.4-10.2) L 04/10/17 04:00 Magnesium 2.00 mg/dL (1.7-2.3) 04/09/17 07:52 Assessment and Plan ROSA MARIA: -Likely from ATN from Sepsis with low BP with contribution from hydronephrosis from renal stone. -BP improved now. -Supportive care is in order -Renally dose all meds, avoid nephrotoxic meds -Check Urine studies Hydronephrosis, Renal stone: -Mild to Moderate on CT with Right UPJ stone. -Urology Dr Smith on board. s/p Cystoscopy with RPG and stent placement -Per Urology Dr Smith. Sepsis/UTI: -Has E.Coli bacteremia -On ABx -ID on board Hypoxia: -Pulm Dr Serrano on board CAD: -s/p PCI and CABG in the past. -On ASA and statin DM: -On insulin -Per primary Aflutter: -Per Primary Plan d/w Dr Estevez Thank you for the consult Serjio Odonnell MD Nephrology, Hypertension, Dialysis, Transplantation Phone no: [phone]
[2017-04-11] MEDS: COLACE PO SCH ×2 (03:53→10:48)
[2017-04-11] MEDS: PRED FORTE 1% OU SCH ×3 (03:54→21:27)
[2017-04-11] MEDS: NEURONTIN PO SCH ×4 (03:55→21:23)
[2017-04-11] MEDS: ZOCOR PO SCH ×2 (03:55→21:23)
[2017-04-11] MEDS: NOVOLOG SUB-Q SCH (03:56)
[2017-04-11] MEDS: DILAUDID IV PRN (03:57)
[2017-04-11 04:56] LABS: Hematocrit 30.6 % (30.3-42.9); Hemoglobin 10.3 gm/dl (10.1-14.3); Mean Corpuscular HGB Conc 34 % (30-34); Mean Corpuscular Hemoglobin 31 pg (28-32); Mean Corpuscular Volume 94 fl (79-97); Red Blood Count 3.26 M/mm3 (3.65-5.03); Red Cell Distribution Width 15.2 % (13.2-15.2); White Blood Count 17.9 K/mm3 (4.5-11.0)
[2017-04-11 04:59] LABS: Platelet Count 93 K/mm3 (140-440)
[2017-04-11 05:15] LABS: Calcium 8.2 mg/dL (8.4-10.2); Potassium 3.5 mmol/L (3.6-5.0)
[2017-04-11] MEDS: ZOSYN/NS 4.5GM/100ML 4.5 GM/100 ML VIAL IV SCH (07:34)
[2017-04-11] MEDS: NACL 0.9% 1000 ML 1,000 ML IV SCH (07:36)
[2017-04-11] MEDS: DUONEB *Not for PRN Use IH SCH ×3 (08:41→21:14)
[2017-04-11] MEDS: LOPRESSOR PO SCH ×3 (09:11→21:23)
[2017-04-11] MEDS: PROTONIX PO SCH (09:11)
[2017-04-11] MEDS: ZOLOFT PO SCH (09:11)
[2017-04-11] MEDS: HEPARIN SUB-Q SCH ×2 (09:12→21:22)
[2017-04-11] MEDS: ASPIRIN PO SCH (09:12)
--- NOTE | 2017-04-11 09:46 | Progress Note ---
Assessment and Plan Assessment: Paroxysmal atrial flutter with RVR CAD, s/p PCI and CABG CMP - EF 30-35%; presumably nonischemic as stress test 12/2016 was negative for ischemia, EF 43% UTI / sepsis Right hydronephrosis - s/p cysto, rpg, stent (6x 24 with short internal string) ROSA MARIA - improving Acute respiratory failure - improved Lactic acidosis Hypomag - repleted Thrombocytopenia - improving Bacteremia HTN DM GERD H/o CVA with functional quadriplegia, contracted legs, dysphasia and left-sided hemiparesis Plan: Echo reviewed - EF 30-35%, impaired relaxation, mild MR, trace MT, minimal pericardial effusion. Increase lopressor to 50mg PO BID. Consider initiation of ACEI/ARB once renal function is optimized. ABX per primary. Systemic anticoagulation in regards to atrial flutter is indicated as pt has CHADS of at least 6. However, pt with thrombocytopenia (plts 80K ->99K -> 93K). Will defer systemic anticoagulation at this time given thrombocytopenia and cont to monitor plts. Would prefer plts >100k prior to initiation of systemic AC. Pt may tx out of ICU to tele from cardiology standpoint. Assessment and plan reviewed with pt at bedside. The patient has been seen in conjunction with Dr. Hameed who agrees with the assessment and plan of care. Subjective Date of service: 04/11/17 Principal diagnosis: AFlutter RVR ; sepsis Interval history: Pt resting in bed, no cardiac complaints. In paroxysmal AFlutter on tele with intermittent RVR. Objective Last Vital Signs Temp 98.3 F 04/11/17 08:00 Pulse 121 H 04/11/17 09:11 Resp 16 04/11/17 08:39 BP 131/77 04/11/17 09:11 Pulse Ox 97 04/11/17 08:00 - Physical Examination General: Appears Well HEENT: Positive: PERRL, Normocephaly, Mucus Membranes Moist Neck: Positive: neck supple, trachea midline Cardiac: Positive: S1/S2, Tachycardia Lungs: Positive: clear to auscultation Neuro: Positive: Grossly Intact Abdomen: Positive: Soft. Negative: Tender Skin: Positive: Clear. Negative: Rash Musculoskeletal: No Fluid Collection, No Pain, Normal Range of Motion Extremities: Absent: edema - Labs and Meds CBC 04/11/17 Range/Units 04:00 WBC 17.9 H (4.5-11.0) K/mm3 RBC 3.26 L (3.65-5.03) M/mm3 Hgb 10.3 (10.1-14.3) gm/dl Hct 30.6 (30.3-42.9) % Plt Count 93 L (140-440) K/mm3 Comprehensive Metabolic Panel 04/10/17 04/11/17 Range/Units 16:45 04:00 Sodium 146 H (137-145) mmol/L Potassium 3.5 L (3.6-5.0) mmol/L Chloride 111.0 H (98-107) mmol/L Carbon Dioxide 22 (22-30) mmol/L BUN 30 H (7-17) mg/dL Creatinine 1.3 H (0.7-1.2) mg/dL Glucose 157 H (65-100) mg/dL Calcium 8.2 L (8.4-10.2) mg/dL Albumin 2.7 L (3.9-5) g/dL - Imaging and Cardiology EKG: image reviewed Echo: report reviewed (07/2013: EF 50%, trace MR, trace TR) - Telemetry EKG Rhythm: Atrial Flutter
--- NOTE | 2017-04-11 09:46 | XRay Report ---
AP CHEST: HISTORY: Short of breath Previous thoracic surgery changes are noted. Mild cardiomegaly is stable. Normal pulmonary vascularity. The lungs are generally clear. Previously described left lower lobe opacity has essentially resolved since 04/08/17. No new acute process. IMPRESSION: Cardiomegaly. Lungs clear.
--- NOTE | 2017-04-11 09:50 | Progress Note ---
Assessment and Plan Assessment: 1) Severe Sepsis with septic shock: Improving. Etiology most likely complicated UTI/septicemia. 2) Complicated UTI with right obstructive stone: -CT of the abdomen showed a obstruction of the right UPJ stone with mild to moderate right hydronephrosis, mild right perinephric stranding, AAA and bladder stones. -Urine cx - mixed bacteria -S/P cysto, rpg, stent on 04/10 -CRP=34 3) E coli septicemia: from UTI 6) ROSA MARIA on CKD 7) CAD s/p [place]/stents 8) Diabetes mellitus, 9) History of CVA with functional quadriplegia, Plan: -recheck blood cultures -recheck C-reactive protein (CRP) in 48h -stop zosyn -start ceftriaxone -remove espitia and femoral TLC -PT / incentive spirometry Thank you Dr Estevez for your consultation, will follow up with you. Neeru Carrasquillo MD Infectious Diseases Specialist [facility] M [phone] O [phone] Subjective Date of service: 04/11/17 Principal diagnosis: AFlutter RVR ; sepsis Interval history: More alert talking, no fever, no hypotension, no pressors. Microbiology: Blood cultures: 04/08 E coli Urine cultures: 04/08 >100K mixed bacteria Respiratory cultures: Wound cultures: Stool cultures: C diff neg Current Antimicrobials: Zosyn 04/08 Previous Antimicrobials: Vancomycin 04/08 Objective - Exam Narrative Exam: General appearance: sedated on the vent Eyes: anicteric sclerae, moist conjunctivae; PERRLA HENT: Atraumatic; oropharynx limited with ETT Neck: Trachea midline; supple, no thyromegaly or lymphadenopathy Lungs: coarse BS rd CV: RRR Abdomen: Soft, obese Extremities:LE edema Skin: stage II sacral sore not infected Psych: sedated. Neuro: sedated Lines: right femoral TLC. Espitia cath in place - Constitutional Vitals: Vital Signs Temp Pulse Resp BP Pulse Ox 98.3 F 121 H 16 131/77 97 04/11/17 08:00 04/11/17 09:11 04/11/17 08:39 04/11/17 09:11 04/11/17 08:00 Temperature -Last 24 Hours Temperature 98.3 F Temperature 99.1 F Temperature 99.2 F Temperature 98.9 F Temperature 98.1 F Temperature 98.1 F Temperature 97.9 F Temperature 98.6 F Temperature 97.8 F Temperature 97.8 F Temperature 98.1 F - Labs CBC & Chem 7: 04/11/17 04:00 04/11/17 04:00 Labs: Abnormal lab results 04/10/17 04/10/17 04/10/17 Range/Units 04:00 11:20 11:58 WBC (4.5-11.0) K/mm3 RBC (3.65-5.03) M/mm3 Plt Count (140-440) K/mm3 Sodium (137-145) mmol/L Potassium (3.6-5.0) mmol/L Chloride (98-107) mmol/L BUN (7-17) mg/dL Creatinine (0.7-1.2) mg/dL Glucose (65-100) mg/dL POC Glucose 202 H 183 H (70-105) Calcium (8.4-10.2) mg/dL C-Reactive Protein 34.00 H (0.00-1.30) mg/dL Albumin (3.9-5) g/dL 04/10/17 04/10/17 04/10/17 Range/Units 16:45 17:38 23:33 WBC (4.5-11.0) K/mm3 RBC (3.65-5.03) M/mm3 Plt Count (140-440) K/mm3 Sodium (137-145) mmol/L Potassium (3.6-5.0) mmol/L Chloride (98-107) mmol/L BUN (7-17) mg/dL Creatinine (0.7-1.2) mg/dL Glucose (65-100) mg/dL POC Glucose 173 H 140 H (70-105) Calcium (8.4-10.2) mg/dL C-Reactive Protein (0.00-1.30) mg/dL Albumin 2.7 L (3.9-5) g/dL 04/11/17 04/11/17 04/11/17 Range/Units 04:00 04:00 05:59 WBC 17.9 H (4.5-11.0) K/mm3 RBC 3.26 L (3.65-5.03) M/mm3 Plt Count 93 L (140-440) K/mm3 Sodium 146 H (137-145) mmol/L Potassium 3.5 L (3.6-5.0) mmol/L Chloride 111.0 H (98-107) mmol/L BUN 30 H (7-17) mg/dL Creatinine 1.3 H (0.7-1.2) mg/dL Glucose 157 H (65-100) mg/dL POC Glucose 187 H (70-105) Calcium 8.2 L (8.4-10.2) mg/dL C-Reactive Protein (0.00-1.30) mg/dL Albumin (3.9-5) g/dL
[2017-04-11] MEDS ORDERED: LOPRESSOR PO ONE (11:00)
[2017-04-11] MEDS: ROCEPHIN/NS 2 GM/100 ML 2 GM/100 ML BAG IV SCH (11:36)
--- NOTE | 2017-04-11 12:39 | Progress Note ---
Assessment and Plan Imp: 1. UTI -> pyelonephritis/hydronephrosis 2. Severe sepsis 3. ROSA MARIA 4. Acute respiratory failure, hypoxia 5. Lactic acidosis, better 6. Thrombocytopenia, likely due to sepsis 7. Bacteremia 8. [facility] Rec: 1. On Rocephin; surveillance cultures 2. Cr improving; stop IVFs 3. Monitor platelets 4. Remove CVL 5. Can go to floor pulm-johnson 6. Complex decision-making Plan of care reviewed w/ patient, she understands/agrees; no family present Subjective Date of service: 04/11/17 Principal diagnosis: AFlutter RVR ; sepsis Interval history: No events. SOB is stable. On NC. No other new complaints. HD stable. Abd pain better. Active Medications Albuterol (Proventil) 2.5 mg IH Q4HRT PRN PRN Reason: Shortness Of Breath Last Admin: 04/09/17 05:07 Dose: 2.5 mg Albuterol/Ipratropium (Duoneb *Not For Prn Use*) 1 ampul IH TIDRT [facility] Last Admin: 04/11/17 08:41 Dose: 1 ampul Aspirin (Aspirin) 325 mg PO DAILY [facility] Last Admin: 04/11/17 09:12 Dose: 325 mg Dextrose (D50w (25gm) Syringe) 50 ml IV PRN PRN PRN Reason: Hypoglycemia Docusate Sodium (Colace) 100 mg PO BID [facility] Last Admin: 04/11/17 10:48 Dose: Not Given Gabapentin (Neurontin) 300 mg PO Q8HR [facility] Last Admin: 04/11/17 07:35 Dose: 300 mg Heparin Sodium (Porcine) (Heparin) 5,000 unit SUB-Q Q12HR [facility] Last Admin: 04/11/17 09:12 Dose: 5,000 unit Hydromorphone HCl (Dilaudid) 0.5 mg IV Q3H PRN PRN Reason: Pain , Severe (7-10) Last Admin: 04/11/17 03:57 Dose: 0.5 mg Sodium Chloride (Nacl 0.9% 1000 Ml) 1,000 mls @ 42 mls/hr IV DIRECT [facility] Last Admin: 04/11/17 07:36 Dose: 42 mls/hr Ceftriaxone Sodium (Rocephin/Ns 2 Gm/100 Ml) 2 gm in 100 mls @ 200 mls/hr IV Q24HR [facility] PRN Reason: Protocol Last Admin: 04/11/17 11:36 Dose: 200 mls/hr Insulin Aspart (Novolog) 0 units SUB-Q Q6HR [facility] PRN Reason: Protocol Last Admin: 04/11/17 03:56 Dose: Not Given Metoprolol Tartrate (Lopressor) 25 mg PO TID [facility] Last Admin: 04/11/17 09:11 Dose: 25 mg Pantoprazole Sodium (Protonix) 20 mg PO QDAY [facility] Last Admin: 04/11/17 09:11 Dose: 20 mg Prednisolone Acetate (Pred Forte 1%) 1 drops OU QID [facility] Last Admin: 04/11/17 09:13 Dose: 1 drops Sertraline HCl (Zoloft) 12.5 mg PO QDAY [facility] Last Admin: 04/11/17 09:11 Dose: 12.5 mg Simvastatin (Zocor) 20 mg PO QHS [facility] Last Admin: 04/11/17 03:55 Dose: 20 mg Objective Vital Signs - 12hr 04/11/17 04/11/17 04/11/17 01:00 02:00 03:00 Temperature Pulse Rate 72 82 79 Pulse Rate [ Anterior Bilateral Throughout] Pulse Rate [ From Monitor] Respiratory 19 19 19 Rate Respiratory Rate [Anterior Bilateral Throughout] Respiratory Rate [Back] Blood Pressure 103/56 128/75 124/94 O2 Sat by Pulse 96 97 97 Oximetry 04/11/17 04/11/17 04/11/17 04:00 05:00 06:00 Temperature 99.1 F Pulse Rate 80 77 72 Pulse Rate [ Anterior Bilateral Throughout] Pulse Rate [ From Monitor] Respiratory 14 12 15 Rate Respiratory Rate [Anterior Bilateral Throughout] Respiratory Rate [Back] Blood Pressure 104/59 118/61 115/61 O2 Sat by Pulse 96 96 96 Oximetry 04/11/17 04/11/17 04/11/17 07:00 08:00 08:39 Temperature 98.3 F Pulse Rate 73 69 Pulse Rate [ 77 Anterior Bilateral Throughout] Pulse Rate [ 76 From Monitor] Respiratory 16 17 Rate Respiratory 16 Rate [Anterior Bilateral Throughout] Respiratory Rate [Back] Blood Pressure 116/58 111/60 O2 Sat by Pulse 97 98 Oximetry 04/11/17 04/11/17 04/11/17 09:00 09:11 10:00 Temperature Pulse Rate 87 121 H 65 Pulse Rate [ Anterior Bilateral Throughout] Pulse Rate [ From Monitor] Respiratory 23 Rate Respiratory Rate [Anterior Bilateral Throughout] Respiratory 17 Rate [Back] Blood Pressure 131/77 131/77 O2 Sat by Pulse 96 100 Oximetry 04/11/17 04/11/17 04/11/17 10:01 10:47 11:00 Temperature Pulse Rate 69 65 65 Pulse Rate [ Anterior Bilateral Throughout] Pulse Rate [ From Monitor] Respiratory 16 19 Rate Respiratory Rate [Anterior Bilateral Throughout] Respiratory Rate [Back] Blood Pressure 118/63 118/63 108/65 O2 Sat by Pulse 95 98 Oximetry Constitutional: alert, other (awake) Eyes: non-icteric ENT: oropharynx moist Neck: supple Effort: normal Ascultation: Bilateral: wheezes (faint expiratory wheezes bilaterally) Cardiovascular: regular rate and rhythm (no mrg) Gastrointestinal: normoactive bowel sounds, soft, non-tender, non-distended Integumentary: normal Extremities: no cyanosis, edema (trace lower extremity edema) Neurologic: normal mental status, pupils equal and round, other (L sided hemiparesis) Psychiatric: mood appropriate, affect normal CBC and BMP: 04/11/17 04:00 04/11/17 04:00 ABG, PT/INR, D-dimer: ABG POC ABG pH 7.418 (7.35-7.45) 04/08/17 04:26 POC ABG pCO2 27.9 (35-45) L 04/08/17 04:26 POC ABG pO2 75 (80-105) L 04/08/17 04:26 POC ABG HCO3 18.0 04/08/17 04:26 POC ABG Total CO2 19 04/08/17 04:26 POC ABG O2 Sat 96 04/08/17 04:26 PT/INR, D-dimer PT 17.7 Sec. (12.2-14.9) H 04/09/17 19:53 INR 1.38 (0.87-1.13) H 04/09/17 19:53 Abnormal lab findings: Abnormal Labs 04/08/17 04/09/17 04/09/17 08:55 00:03 04:54 WBC RBC Plt Count Lymphocytes % (Manual) Seg Neutrophils # Man Lymphocytes # (Manual) PT INR APTT Fibrinogen Sodium Potassium Chloride Carbon Dioxide BUN Creatinine Glucose POC Glucose 163 H 156 H Lactic Acid 5.70 H* Calcium C-Reactive Protein Albumin 04/09/17 04/09/17 04/09/17 07:52 12:39 19:53 WBC 28.3 H RBC 3.54 L Plt Count 80 L Lymphocytes % (Manual) 4.0 L Seg Neutrophils # Man 18.4 H Lymphocytes # (Manual) 1.1 L PT 17.7 H INR 1.38 H APTT 43.4 H Fibrinogen Sodium Potassium Chloride Carbon Dioxide 20 L BUN 30 H Creatinine 1.6 H Glucose 142 H POC Glucose Lactic Acid Calcium 7.8 L C-Reactive Protein Albumin 04/09/17 04/09/17 04/10/17 19:53 23:35 04:00 WBC 23.7 H RBC 3.57 L Plt Count 99 L Lymphocytes % (Manual) Seg Neutrophils # Man Lymphocytes # (Manual) PT INR APTT Fibrinogen Sodium Potassium Chloride Carbon Dioxide BUN Creatinine Glucose POC Glucose 219 H Lactic Acid 2.80 H* Calcium C-Reactive Protein Albumin 04/10/17 04/10/17 04/10/17 04:00 04:00 05:33 WBC RBC Plt Count Lymphocytes % (Manual) Seg Neutrophils # Man Lymphocytes # (Manual) PT INR APTT Fibrinogen Sodium Potassium Chloride Carbon Dioxide 21 L BUN 30 H Creatinine 1.8 H Glucose 164 H POC Glucose 255 H Lactic Acid Calcium 8.2 L C-Reactive Protein 34.00 H Albumin 04/10/17 04/10/17 04/10/17 07:45 11:20 11:58 WBC RBC Plt Count Lymphocytes % (Manual) Seg Neutrophils # Man Lymphocytes # (Manual) PT INR APTT Fibrinogen 727 H Sodium Potassium Chloride Carbon Dioxide BUN Creatinine Glucose POC Glucose 202 H 183 H Lactic Acid Calcium C-Reactive Protein Albumin 04/10/17 04/10/17 04/10/17 13:46 16:45 17:38 WBC RBC Plt Count Lymphocytes % (Manual) Seg Neutrophils # Man Lymphocytes # (Manual) PT INR APTT Fibrinogen Sodium Potassium Chloride Carbon Dioxide BUN Creatinine Glucose POC Glucose 213 H 173 H Lactic Acid Calcium C-Reactive Protein Albumin 2.7 L 04/10/17 04/11/17 04/11/17 23:33 04:00 04:00 WBC 17.9 H RBC 3.26 L Plt Count 93 L Lymphocytes % (Manual) Seg Neutrophils # Man Lymphocytes # (Manual) PT INR APTT Fibrinogen Sodium 146 H Potassium 3.5 L Chloride 111.0 H Carbon Dioxide BUN 30 H Creatinine 1.3 H Glucose 157 H POC Glucose 140 H Lactic Acid Calcium 8.2 L C-Reactive Protein Albumin 04/11/17 05:59 WBC RBC Plt Count Lymphocytes % (Manual) Seg Neutrophils # Man Lymphocytes # (Manual) PT INR APTT Fibrinogen Sodium Potassium Chloride Carbon Dioxide BUN Creatinine Glucose POC Glucose 187 H Lactic Acid Calcium C-Reactive Protein Albumin Chest x-ray: report reviewed, image reviewed
--- NOTE | 2017-04-11 13:14 | Progress Note ---
Assessment and Plan ROSA MARIA: -Likely from ATN from Sepsis with low BP with contribution from hydronephrosis from renal stone. -BP improved now. -Cr trending down after stent yesterday. -Supportive care is in order -Renally dose all meds, avoid nephrotoxic meds -Check Urine studies Hydronephrosis, Renal stone: -Mild to Moderate on CT with Right UPJ stone. -Urology Dr Smith on board. s/p Cystoscopy with RPG and stent placement yesterday. -Per Urology Dr Smith. Hypernatremia: -Encourage more PO water intake. -D5W 500 mls bolus once -Will be on the lookout for post obstructive diuresis after stent, if goes into diuresis then will need maintenance IVFs. Sepsis/UTI: -Has E.Coli bacteremia -On ABx -ID Dr Shepard on board Hypoxia: -Pulm Dr Serrano on board CAD, Aflutter: -s/p PCI and CABG in the past. -On ASA and statin -Cardiology Dr Samaniego on board. DM: -On insulin -Per primary Plan d/w Dr Estevez and bedside RN. Serjio Odonnell MD Nephrology, Hypertension, Dialysis, Transplantation Phone no: [phone] Subjective Date of service: 04/11/17 Principal diagnosis: AFlutter RVR ; sepsis Interval history: Denies CP/SHOB. Making urine. Objective - Exam Narrative Exam: GE: Awake HEENT: PERRLA Neck: No JVD Chest: BL Wheezes and Crackles CVS: RRR Abd: Soft/BS+ Ext: No cce Neuro: Left hemiparesis - Vital Signs Vital signs: Vital Signs - 12hr 04/11/17 04/11/17 04/11/17 02:00 03:00 04:00 Temperature 99.1 F Pulse Rate 82 79 80 Pulse Rate [ Anterior Bilateral Throughout] Pulse Rate [ From Monitor] Respiratory 19 19 14 Rate Respiratory Rate [Anterior Bilateral Throughout] Respiratory Rate [Back] Blood Pressure 128/75 124/94 104/59 O2 Sat by Pulse 97 97 96 Oximetry 04/11/17 04/11/17 04/11/17 05:00 06:00 07:00 Temperature Pulse Rate 77 72 73 Pulse Rate [ Anterior Bilateral Throughout] Pulse Rate [ From Monitor] Respiratory 12 15 16 Rate Respiratory Rate [Anterior Bilateral Throughout] Respiratory Rate [Back] Blood Pressure 118/61 115/61 116/58 O2 Sat by Pulse 96 96 97 Oximetry 04/11/17 04/11/17 04/11/17 08:00 08:39 09:00 Temperature 98.3 F Pulse Rate 69 87 Pulse Rate [ 77 Anterior Bilateral Throughout] Pulse Rate [ 76 From Monitor] Respiratory 17 23 Rate Respiratory 16 Rate [Anterior Bilateral Throughout] Respiratory Rate [Back] Blood Pressure 111/60 131/77 O2 Sat by Pulse 98 96 Oximetry 04/11/17 04/11/17 04/11/17 09:11 10:00 10:01 Temperature Pulse Rate 121 H 65 69 Pulse Rate [ Anterior Bilateral Throughout] Pulse Rate [ From Monitor] Respiratory 16 Rate Respiratory Rate [Anterior Bilateral Throughout] Respiratory 17 Rate [Back] Blood Pressure 131/77 118/63 O2 Sat by Pulse 100 95 Oximetry 04/11/17 04/11/17 04/11/17 10:47 11:00 12:00 Temperature 98.7 F Pulse Rate 65 65 Pulse Rate [ Anterior Bilateral Throughout] Pulse Rate [ From Monitor] Respiratory 19 Rate Respiratory Rate [Anterior Bilateral Throughout] Respiratory Rate [Back] Blood Pressure 118/63 108/65 O2 Sat by Pulse 98 Oximetry - Lab 04/11/17 04:00 04/11/17 04:00 Most recent lab results Calcium 8.2 mg/dL (8.4-10.2) L 04/11/17 04:00 Magnesium 2.00 mg/dL (1.7-2.3) 04/09/17 07:52
[2017-04-11] MEDS ORDERED: D5W 500 ML IV SCH (14:00)
--- NOTE | 2017-04-11 15:06 | Progress Note ---
Assessment and Plan Assessment and plan: Patient is a 71-year-old woman from [facility] under the care of Dr. Bryce Carrillo with a history of insulin-dependent diabetes mellitus, hypertension, depression, GERD, peripheral neuropathy, glaucoma, acute IL, coronary artery disease status post CABG and stent, COPD, CHF EF 45% on negative stress test December 2016, CVA with functional quadriplegia, contracted legs, dysphasia and left-sided hemiparesis who presents with "possible aspiration, labored breathing, sats fluctuating" per [place] [facility] report. Patient has ams with lethargy. Portable chest x-ray read as mild cardiomegaly, segmental atelectasis left lower lobe versus small left pleural effusion. Urinalysis indicative of urinary tract infection. Patient was found to be hypotensive and a central line was placed, Levophed ordered but not given because blood pressure temporarily responded to IV fluid boluses; however, patient has h/o of chf/cad, EF of 45%. Therefore must be careful with IV hydration. -Septic shock likely due to UTI: improving, Continue with IV antibiotics Rocephin, IV fluids, follow cultures, ordered repeat lactic acid for sepsis bundle criteria. ID consultation noted. -Gram negative valentino bactermia- Likely secondary to UTI, Continue abx, Echo, Monitor for Sensitivity when organism identified. -Acute Cystis with right-sided hydronephrosis and obstructing nephrolithiasis- treatment as noted above, urology consult, possible stent Done yesterday. -Acute hypoxic respiratory failure currently on 2 L oxygen which is new for patient: Consult respiratory therapy, pulmonology input noted, wean oxygen as appropriate, nebulizer treatments -Atrial flutter with RVR -possible new onset. Cardiology following. lopressor 25mg po TID started with holding parameters. per cardiology Will defer systemic anticoagulation at this time given thrombocytopenia and repeat CBC in AM. Would prefer plts >100k prior to initiation of systemic AC. CAD, s/p PCI and CABG- NOTED Above, asa, statin -HTN- controlled -DM- with hyperglycemia. Will initiate insulin for better control -Thrombocytopenia-Improving, monitor closely -Acute encephalopathy due to sepsis: Treat above -Acute kidney injury on Chronic kidney disease stage 3. Improving following stent placement. Likely secondary to shock syndrome, Will continue gentle hydration, if no improvement will get Nephrology input. check vancomycin through -Hydronephrosis: s/p Cystoscopy with RPG and stent placement yesterday. -Left adrenal adenoma -follow-up outpatient -Infrarenal abdominal aortic aneurysm- 3.3x3.1cm - follow up outpatient. -PAD Moderate to severe- Vascular consult Functional quadriplegia due to CVA with left-sided hemiparesis: Wound care consult, PT/OT eval and treat -Hyperkalemia- resolved -Morbid obesity- BMI 38, NUTRITION CONSULT. -Hypomagnesemia: Replaced -DVT prophylaxis: Subcutaneous heparin full code Disposition: Continued inpatient care, PLAN DISCUSSED WITH PATIENT IN DETAIL History Interval history: Patient seen and examined, Much improved today, No other adverse event reported Hospitalist Physical - Physical exam Narrative exam: VITAL SIGNS: Reviewed. GENERAL: The patient appeared ill, morbidly obese, lethargic. Vital signs as documented. HEAD: No signs of head trauma. EYES: Pupils are equal. Extraocular motions intact. Anicteric EARS: Hearing grossly intact. MOUTH: Oropharynx is normal. NECK: No adenopathy, no JVD. CHEST: Chest with diminished breath sounds bilaterally. No wheezes, rales, or rhonchi. CARDIAC: Regular rate and rhythm. S1 and S2, without murmurs, gallops, or rubs. VASCULAR: No Edema. Peripheral pulses normal and equal in all extremities. ABDOMEN: Soft, without detectable tenderness. No sign of distention. No rebound or guarding, and no masses palpated. Bowel Sounds normal. MUSCULOSKELETAL: Good range of motion of all major joints. Extremities without clubbing, cyanosis or edema. NEUROLOGIC EXAM: Alert and oriented x 2. No focal sensory or strength deficits. Speech low pitched, inaudible PSYCHIATRIC: unable to assess. SKIN: Sacral pressure ulcer stage II, left femoral TLC - Constitutional Vitals: Temp Pulse Resp BP Pulse Ox 98.7 F 73 19 112/57 98 04/11/17 12:00 04/11/17 13:01 04/11/17 13:01 04/11/17 13:01 04/11/17 13:01 General appearance: Present: no acute distress Results - Labs CBC & Chem 7: 04/11/17 04:00 04/11/17 04:00 Labs: Laboratory Last Values WBC 17.9 K/mm3 (4.5-11.0) H 04/11/17 04:00 RBC 3.26 M/mm3 (3.65-5.03) L 04/11/17 04:00 Hgb 10.3 gm/dl (10.1-14.3) 04/11/17 04:00 Hct 30.6 % (30.3-42.9) 04/11/17 04:00 MCV 94 fl (79-97) 04/11/17 04:00 MCH 31 pg (28-32) 04/11/17 04:00 MCHC 34 % (30-34) 04/11/17 04:00 RDW 15.2 % (13.2-15.2) 04/11/17 04:00 Plt Count 93 K/mm3 (140-440) L 04/11/17 04:00 Add Manual Diff Complete 04/09/17 12:39 Total Counted 100 04/09/17 12:39 Seg Neutrophils % Scientific Linguist 04/08/17 04:35 Seg Neuts % (Manual) 65.0 % (40.0-70.0) 04/09/17 12:39 Band Neutrophils % 30.0 % 04/09/17 12:39 Lymphocytes % (Manual) 4.0 % (13.4-35.0) L 04/09/17 12:39 Reactive Lymphs % (Man) 0 % 04/09/17 12:39 Monocytes % (Manual) 1.0 % (0.0-7.3) 04/09/17 12:39 Eosinophils % (Manual) 0 % (0.0-4.3) 04/08/17 04:35 Basophils % (Manual) 0 % (0.0-1.8) 04/08/17 04:35 Metamyelocytes % 0 % 04/09/17 12:39 Myelocytes % 0 % 04/09/17 12:39 Promyelocytes % 0 % 04/09/17 12:39 Blast Cells % 0 % 04/09/17 12:39 Nucleated RBC % Not Reportable 04/09/17 12:39 Seg Neutrophils # Man 18.4 K/mm3 (1.8-7.7) H 04/09/17 12:39 Band Neutrophils # 8.5 K/mm3 04/09/17 12:39 Lymphocytes # (Manual) 1.1 K/mm3 (1.2-5.4) L 04/09/17 12:39 Abs React Lymphs (Man) 0.0 K/mm3 04/09/17 12:39 Monocytes # (Manual) 0.3 K/mm3 (0.0-0.8) 04/09/17 12:39 Eosinophils # (Manual) 0.0 K/mm3 (0.0-0.4) 04/09/17 12:39 Basophils # (Manual) 0.0 K/mm3 (0.0-0.1) 04/09/17 12:39 Metamyelocytes # 0.0 K/mm3 04/09/17 12:39 Myelocytes # 0.0 K/mm3 04/09/17 12:39 Promyelocytes # 0.0 K/mm3 04/09/17 12:39 Blast Cells # 0.0 K/mm3 04/09/17 12:39 WBC Morphology Not Reportable 04/09/17 12:39 Hypersegmented Neuts Not Reportable 04/09/17 12:39 Hyposegmented Neuts Not Reportable 04/09/17 12:39 Hypogranular Neuts Not Reportable 04/09/17 12:39 Smudge Cells Not Reportable 04/09/17 12:39 Toxic Granulation Not Reportable 04/09/17 12:39 Toxic Vacuolation Not Reportable 04/09/17 12:39 Dohle Bodies Not Reportable 04/09/17 12:39 Pelger-Huet Anomaly Not Reportable 04/09/17 12:39 Ortiz Rods Not Reportable 04/09/17 12:39 Platelet Estimate Not Reportable 04/09/17 12:39 Clumped Platelets Not Reportable 04/09/17 12:39 Plt Clumps, EDTA Not Reportable 04/09/17 12:39 Large Platelets Not Reportable 04/09/17 12:39 Giant Platelets Not Reportable 04/09/17 12:39 Platelet Satelliting Not Reportable 04/09/17 12:39 Plt Morphology Comment Not Reportable 04/09/17 12:39 RBC Morphology Normal 04/09/17 12:39 Dimorphic RBCs Not Reportable 04/09/17 12:39 Polychromasia Not Reportable 04/09/17 12:39 Hypochromasia Not Reportable 04/09/17 12:39 Poikilocytosis Not Reportable 04/09/17 12:39 Anisocytosis Not Reportable 04/09/17 12:39 Microcytosis Not Reportable 04/09/17 12:39 Macrocytosis Not Reportable 04/09/17 12:39 Spherocytes Not Reportable 04/09/17 12:39 Pappenheimer Bodies Not Reportable 04/09/17 12:39 Sickle Cells Not Reportable 04/09/17 12:39 Target Cells Not Reportable 04/09/17 12:39 Tear Drop Cells Not Reportable 04/09/17 12:39 Ovalocytes Not Reportable 04/09/17 12:39 Helmet Cells Not Reportable 04/09/17 12:39 [place] Bodies Not Reportable 04/09/17 12:39 Somis Rings Not Reportable 04/09/17 12:39 Marion Cells Not Reportable 04/09/17 12:39 Bite Cells Not Reportable 04/09/17 12:39 Crenated Cell Not Reportable 04/09/17 12:39 Elliptocytes Not Reportable 04/09/17 12:39 Acanthocytes (Spur) Not Reportable 04/09/17 12:39 Rouleaux Not Reportable 04/09/17 12:39 Hemoglobin C Crystals Not Reportable 04/09/17 12:39 Schistocytes Not Reportable 04/09/17 12:39 Malaria parasites Not Reportable 04/09/17 12:39 Colton Bodies Not Reportable 04/09/17 12:39 Hem Pathologist Commnt No 04/09/17 12:39 PT 17.7 Sec. (12.2-14.9) H 04/09/17 19:53 INR 1.38 (0.87-1.13) H 04/09/17 19:53 APTT 43.4 Sec. (24.2-36.6) H 04/09/17 19:53 Fibrinogen 727 mg/dl (211-480) H 04/10/17 07:45 POC ABG pH 7.418 (7.35-7.45) 04/08/17 04:26 POC ABG pCO2 27.9 (35-45) L 04/08/17 04:26 POC ABG pO2 75 (80-105) L 04/08/17 04:26 POC ABG HCO3 18.0 04/08/17 04:26 POC ABG Total CO2 19 04/08/17 04:26 POC ABG O2 Sat 96 04/08/17 04:26 POC ABG Base Excess -7 04/08/17 04:26 FiO2 32 % 04/08/17 04:26 Sodium 146 mmol/L (137-145) H 04/11/17 04:00 Potassium 3.5 mmol/L (3.6-5.0) L 04/11/17 04:00 Chloride 111.0 mmol/L (98-107) H 04/11/17 04:00 Carbon Dioxide 22 mmol/L (22-30) 04/11/17 04:00 Anion Gap 17 mmol/L 04/11/17 04:00 BUN 30 mg/dL (7-17) H 04/11/17 04:00 Creatinine 1.3 mg/dL (0.7-1.2) H 04/11/17 04:00 Estimated GFR 49 ml/min 04/11/17 04:00 BUN/Creatinine Ratio 23 % 04/11/17 04:00 Glucose 157 mg/dL (65-100) H 04/11/17 04:00 POC Glucose 165 (70-105) H 04/11/17 12:02 Lactic Acid 1.30 mmol/L (0.7-2.0) 04/10/17 07:45 Calcium 8.2 mg/dL (8.4-10.2) L 04/11/17 04:00 Magnesium 2.00 mg/dL (1.7-2.3) 04/09/17 07:52 Total Bilirubin 1.50 mg/dL (0.1-1.2) H 04/08/17 06:55 AST 39 units/L (5-40) 04/08/17 06:55 ALT 20 units/L (7-56) 04/08/17 06:55 Alkaline Phosphatase 167 units/L (35-129) H 04/08/17 06:55 Total Creatine Kinase 284 units/L (30-135) H 04/08/17 04:35 CK-MB (CK-2) 2.2 ng/mL (0.0-4.0) 04/08/17 04:35 CK-MB (CK-2) Rel Index 0.7 (0-4) 04/08/17 04:35 Troponin T 0.034 ng/mL (0.00-0.029) H 04/08/17 04:35 C-Reactive Protein 34.00 mg/dL (0.00-1.30) H 04/10/17 04:00 NT-Pro-B Natriuret Pep 2928 pg/mL (0-900) H 04/08/17 06:36 Total Protein 7.0 g/dL (6.3-8.2) 04/08/17 06:55 Albumin 2.7 g/dL (3.9-5) L 04/10/17 16:45 Albumin/Globulin Ratio 1.3 % 04/08/17 06:55 Triglycerides 120 mg/dL (2-149) 04/08/17 04:35 Cholesterol 118 mg/dL (50-199) 04/08/17 04:35 LDL Cholesterol Direct 56 mg/dL (50-130) 04/08/17 04:35 HDL Cholesterol 38 mg/dL (40-59) L 04/08/17 04:35 Cholesterol/HDL Ratio 3.10 % 04/08/17 04:35 Lipase 9 units/L (13-60) L 04/08/17 04:35 TSH 1.280 mlU/mL (0.270-4.200) 04/09/17 19:56 Free T4 1.32 ng/dL (0.76-1.46) 04/09/17 19:55 Urine Color Yellow (Yellow) 04/08/17 05:08 Urine Turbidity Clear (Clear) 04/08/17 05:08 Urine pH 5.0 (5.0-7.0) 04/08/17 05:08 Ur Specific [place] 1.016 (1.003-1.030) 04/08/17 05:08 Urine Protein 100 mg/dl mg/dL (Negative) 04/08/17 05:08 Urine Glucose (UA) Neg mg/dL (Negative) 04/08/17 05:08 Urine Ketones Neg mg/dL (Negative) 04/08/17 05:08 Urine Blood Mod (Negative) 04/08/17 05:08 Urine Nitrite Pos (Negative) 04/08/17 05:08 Urine Bilirubin Neg (Negative) 04/08/17 05:08 Urine Urobilinogen < 2.0 mg/dL (<2.0) 04/08/17 05:08 Ur Leukocyte Esterase Lg (Negative) 04/08/17 05:08 Urine WBC (Auto) > 182.0 /HPF (0.0-6.0) H 04/08/17 05:08 Urine RBC (Auto) 14.0 /HPF (0.0-6.0) 04/08/17 05:08 U Epithel Cells (Auto) 1.0 /HPF (0-13.0) 04/08/17 05:08 Urine Bacteria (Auto) 4+ /HPF (Negative) 04/08/17 05:08 Urine WBC Clumps 3+ /HPF 04/08/17 05:08 Urine Mucus 1+ /HPF 04/08/17 05:08
[2017-04-11] MEDS: PROVENTIL IH SCH (18:12)
[2017-04-12] MEDS: NOVOLOG SUB-Q SCH ×7 (00:57→23:24)
[2017-04-12] MEDS: COLACE PO SCH ×4 (01:39→22:10)
[2017-04-12] MEDS: NEURONTIN PO SCH ×3 (05:19→22:12)
[2017-04-12] MEDS: DILAUDID IV PRN (05:19)
[2017-04-12 05:51] LABS: Hematocrit 32.4 % (30.3-42.9); Hemoglobin 10.9 gm/dl (10.1-14.3); Mean Corpuscular HGB Conc 34 % (30-34); Mean Corpuscular Hemoglobin 32 pg (28-32); Mean Corpuscular Volume 93 fl (79-97); Red Blood Count 3.46 M/mm3 (3.65-5.03); White Blood Count 12.6 K/mm3 (4.5-11.0)
[2017-04-12 05:52] LABS: Platelet Count 97 K/mm3 (140-440)
[2017-04-12 05:57] LABS: Anion Gap 16 mmol/L; BUN/Creatinine Ratio 21; Blood Urea Nitrogen 19 mg/dL (7-17); Calcium 8.3 mg/dL (8.4-10.2); Carbon Dioxide 23 mmol/L (22-30); Chloride 109.8 mmol/L (98-107); Glucose 135 mg/dL (65-100); Potassium 3.2 mmol/L (3.6-5.0); Sodium 146 mmol/L (137-145)
[2017-04-12] MEDS: PRED FORTE 1% OU SCH ×5 (07:44→22:11)
[2017-04-12] MEDS ORDERED: K-DUR PO ONE (08:23)
[2017-04-12] MEDS: DUONEB *Not for PRN Use IH SCH ×4 (09:22→20:39)
[2017-04-12] MEDS: ROCEPHIN/NS 2 GM/100 ML 2 GM/100 ML BAG IV SCH ×2 (10:10→10:54)
[2017-04-12] MEDS: ASPIRIN PO SCH (10:11)
[2017-04-12] MEDS: LOPRESSOR PO SCH ×2 (10:11→22:12)
[2017-04-12] MEDS: HEPARIN SUB-Q SCH ×2 (10:11→22:14)
[2017-04-12] MEDS: ZOLOFT PO SCH (10:11)
[2017-04-12] MEDS: PROTONIX PO SCH (10:11)
--- NOTE | 2017-04-12 11:01 | Progress Note ---
Assessment and Plan Assessment: 1) Severe Sepsis with septic shock: Improving. Etiology most likely complicated UTI/septicemia +/- C diff colitis. 2) Complicated UTI with right obstructive stone: -CT of the abdomen showed a obstruction of the right UPJ stone with mild to moderate right hydronephrosis, mild right perinephric stranding, AAA and bladder stones. -Urine cx - E coli -S/P cysto, rpg, stent on 04/10 -CRP=34 3) E coli septicemia: from UTI 6) ROSA MARIA on CKD 7) CAD s/p [place]/stents 8) Diabetes mellitus, 9) History of CVA with functional quadriplegia 10) Acute C diff colitis Plan: -contact isolation -agree with flagy and po vanco -continue ceftriaxone 1 g IV for now to treat complicated UTI with septicemia -recheck C-reactive protein (CRP) -remove espitia and femoral TLC -PT / incentive spirometry -in view of MDR E coli septicemia, upon discharge will have to continue ceftriaxone 1 g IV qday total 14 days from 04/10 until 04/24 and will continue vancomycin PO 125 mg PO QID until 05/01 ( a week after IV ceftriaxone stop). Orders sent to binder caser I will be out of town until 04/[address] Estevez for your consultation, will follow up with you. Neeru Carrasquillo MD Infectious Diseases Specialist [facility] ([facility] M [phone] O [phone] Subjective Date of service: 04/12/17 Principal diagnosis: AFlutter RVR ; sepsis Interval history: feels better, talking, no fever, transferred to the floor Microbiology: Blood cultures: 04/08 E coli 04/11 ngtd Urine cultures: 04/08 >100K E coli Respiratory cultures: Wound cultures: Stool cultures: C diff neg Current Antimicrobials: Zosyn 04/08 Previous Antimicrobials: Vancomycin 04/08 Objective - Exam Narrative Exam: General appearance: alert in NC O2 Eyes: anicteric sclerae, moist conjunctivae; PERRLA HENT: Atraumatic; oropharynx clear Neck: Trachea midline; supple, no thyromegaly or lymphadenopathy Lungs: coarse BS rd CV: RRR Abdomen: Soft, obese Extremities:LE edema Skin: stage II sacral sore not infected Psych: sedated. Neuro: sedated Lines: right femoral TLC. Espitia cath in place - Constitutional Vitals: Vital Signs Temp Pulse Resp BP Pulse Ox 99.0 F 89 20 132/69 98 04/12/17 04:51 04/12/17 10:00 04/12/17 09:38 04/12/17 04:51 04/12/17 09:24 Temperature -Last 24 Hours Temperature 99.0 F Temperature 98.2 F Temperature 98.9 F Temperature 98.7 F - Labs CBC & Chem 7: 04/12/17 05:14 04/12/17 05:14 Labs: Abnormal lab results 04/10/17 04/11/17 04/12/17 Range/Units 13:46 12:02 04:54 WBC (4.5-11.0) K/mm3 RBC (3.65-5.03) M/mm3 Plt Count (140-440) K/mm3 Sodium (137-145) mmol/L Potassium (3.6-5.0) mmol/L Chloride (98-107) mmol/L BUN (7-17) mg/dL Glucose (65-100) mg/dL POC Glucose 213 H 165 H 130 H (70-105) Calcium (8.4-10.2) mg/dL 04/12/17 04/12/17 Range/Units 05:14 05:14 WBC 12.6 H (4.5-11.0) K/mm3 RBC 3.46 L (3.65-5.03) M/mm3 Plt Count 97 L (140-440) K/mm3 Sodium 146 H (137-145) mmol/L Potassium 3.2 L (3.6-5.0) mmol/L Chloride 109.8 H (98-107) mmol/L BUN 19 H (7-17) mg/dL Glucose 135 H (65-100) mg/dL POC Glucose (70-105) Calcium 8.3 L (8.4-10.2) mg/dL
[2017-04-12] MEDS ORDERED: LOPRESSOR PO ONE (12:26)
--- NOTE | 2017-04-12 12:27 | Progress Note ---
Assessment and Plan Assessment: Paroxysmal atrial flutter with RVR CAD, s/p PCI and CABG CMP - EF 30-35%; presumably nonischemic as stress test 12/2016 was negative for ischemia, EF 43% UTI / sepsis / GNR bacteremia Right hydronephrosis - s/p cysto, rpg, stent (6x 24 with short internal string) ROSA MARIA - improving Acute respiratory failure - improved Lactic acidosis Hypomag - repleted Thrombocytopenia - improving Bacteremia HTN DM GERD H/o CVA with functional quadriplegia, contracted legs, dysphasia and left-sided hemiparesis Plan: Increase lopressor to 50mg PO BID. Initiate low dose Lisinopril. Titrate as tolerated. ABX per primary. Systemic anticoagulation in regards to atrial flutter is indicated as pt has CHADS of at least 6. However, pt with thrombocytopenia. Will defer systemic anticoagulation at this time given thrombocytopenia and cont to monitor plts. Would prefer plts >100k prior to initiation of systemic AC. Assessment and plan reviewed with pt at bedside. The patient has been seen in conjunction with Dr. Hameed who agrees with the assessment and plan of care. Subjective Date of service: 04/12/17 Principal diagnosis: AFlutter RVR ; sepsis Interval history: Pt resting in bed, no cardiac complaints. In paroxysmal AFlutter on tele with intermittent RVR. Pt noted to have rate-dependent RBBB. Objective Last Vital Signs Temp 99.0 F 04/12/17 04:51 Pulse 89 04/12/17 10:00 Resp 20 04/12/17 09:38 BP 132/69 04/12/17 04:51 Pulse Ox 98 04/12/17 09:24 - Physical Examination General: Appears Well HEENT: Positive: PERRL, Normocephaly, Mucus Membranes Moist Neck: Positive: neck supple, trachea midline Cardiac: Positive: S1/S2, Tachycardia Lungs: Positive: clear to auscultation Neuro: Positive: Grossly Intact Abdomen: Positive: Soft. Negative: Tender Skin: Positive: Clear. Negative: Rash Musculoskeletal: No Fluid Collection, No Pain, Normal Range of Motion Extremities: Absent: edema - Labs and Meds CBC 04/12/17 Range/Units 05:14 WBC 12.6 H (4.5-11.0) K/mm3 RBC 3.46 L (3.65-5.03) M/mm3 Hgb 10.9 (10.1-14.3) gm/dl Hct 32.4 (30.3-42.9) % Plt Count 97 L (140-440) K/mm3 Comprehensive Metabolic Panel 04/12/17 Range/Units 05:14 Sodium 146 H (137-145) mmol/L Potassium 3.2 L (3.6-5.0) mmol/L Chloride 109.8 H (98-107) mmol/L Carbon Dioxide 23 (22-30) mmol/L BUN 19 H (7-17) mg/dL Creatinine 0.9 (0.7-1.2) mg/dL Glucose 135 H (65-100) mg/dL Calcium 8.3 L (8.4-10.2) mg/dL - Imaging and Cardiology EKG: image reviewed Echo: report reviewed (07/2013: EF 50%, trace MR, trace TR)
[2017-04-12] MEDS: VANCOMYCIN PO PO SCH ×3 (14:12→23:25)
[2017-04-12] MEDS: FLAGYL PO SCH ×2 (14:12→22:09)
[2017-04-12] MEDS: D5W 1,000 ML IV SCH (14:13)
[2017-04-12] MEDS: ROCEPHIN IM SCH (14:13)
--- NOTE | 2017-04-12 15:04 | Progress Note ---
Assessment and Plan ROSA MARIA: -Likely from ATN from Sepsis with low BP with contribution from hydronephrosis from renal stone. -BP improved now. -Cr trending down after stent on sunday -Supportive care is in order -Renally dose all meds, avoid nephrotoxic meds Hydronephrosis, Renal stone: -Mild to Moderate on CT with Right UPJ stone. -Urology Dr Smith on board. s/p Cystoscopy with RPG and stent placement sunday -Per Urology Dr Smith. Hypernatremia: -Encourage more PO water intake. -Start D5W at 75 cc/hr. Sepsis/UTI: -Has E.Coli bacteremia -On ABx -ID Dr Shepard on board Hypoxia: -Pulm Dr Serrano on board CAD, Aflutter: -s/p PCI and CABG in the past. -On ASA and statin -Cardiology Dr Samaniego on board. DM: -On insulin -Per primary Serjio Odonnell MD Nephrology, Hypertension, Dialysis, Transplantation Phone no: [phone] Subjective Date of service: 04/12/17 Principal diagnosis: AFlutter RVR ; sepsis Interval history: Denies CP/SHOB. On floor now Objective - Exam Narrative Exam: GE: Awake HEENT: PERRLA Neck: No JVD Chest: BL Wheezes and Crackles CVS: RRR Abd: Soft/BS+ Ext: No cce Neuro: Left hemiparesis - Vital Signs Vital signs: Vital Signs - 12hr 04/12/17 04/12/17 04/12/17 03:58 04:51 05:19 Temperature 99.0 F Pulse Rate 74 101 H Pulse Rate [ Anterior Bilateral Throughout] Respiratory 20 20 Rate Respiratory Rate [Anterior Bilateral Throughout] Blood Pressure Blood Pressure 132/69 [Left] O2 Sat by Pulse 99 100 Oximetry 04/12/17 04/12/17 04/12/17 08:05 09:22 09:24 Temperature 99.2 F Pulse Rate 143 H Pulse Rate [ 115 H Anterior Bilateral Throughout] Respiratory 20 Rate Respiratory 20 Rate [Anterior Bilateral Throughout] Blood Pressure 131/83 Blood Pressure [Left] O2 Sat by Pulse 97 98 Oximetry 04/12/17 04/12/17 04/12/17 09:38 10:00 13:27 Temperature Pulse Rate 89 Pulse Rate [ 126 H Anterior Bilateral Throughout] Respiratory Rate Respiratory 20 Rate [Anterior Bilateral Throughout] Blood Pressure 132/92 Blood Pressure [Left] O2 Sat by Pulse Oximetry - Lab 04/12/17 05:14 04/12/17 05:14 Most recent lab results Calcium 8.3 mg/dL (8.4-10.2) L 04/12/17 05:14 Magnesium 2.00 mg/dL (1.7-2.3) 04/09/17 07:52
--- NOTE | 2017-04-12 16:10 | Progress Note ---
Assessment and Plan Assessment and plan: Patient is a 71-year-old woman from [facility] under the care of Dr. Bryce Carrillo with a history of insulin-dependent diabetes mellitus, hypertension, depression, GERD, peripheral neuropathy, glaucoma, acute RI, coronary artery disease status post CABG and stent, COPD, CHF EF 45% on negative stress test December 2016, CVA with functional quadriplegia, contracted legs, dysphasia and left-sided hemiparesis who presents with "possible aspiration, labored breathing, sats fluctuating" per skilled nursing report. Patient has ams with lethargy. Portable chest x-ray read as mild cardiomegaly, segmental atelectasis left lower lobe versus small left pleural effusion. Urinalysis indicative of urinary tract infection. Patient was found to be hypotensive and a central line was placed, Levophed ordered but not given because blood pressure temporarily responded to IV fluid boluses; however, patient has h/o of chf/cad, EF of 45%. Therefore must be careful with IV hydration. -Septic shock likely due to UTI: improving, Continue with IV antibiotics Rocephin, IV fluids, follow cultures, ordered repeat lactic acid for sepsis bundle criteria. ID consultation noted. -Cdiff: * Start on PO FLAGYL and vancomycin, D/W ID, patient still needs Rocephin due to complex UTI. Isolation -Gram negative valentino bactermia- Likely secondary to UTI, Continue abx, Echo, Monitor for Sensitivity when organism identified. -Acute Cystis with right-sided hydronephrosis and obstructing nephrolithiasis- treatment as noted above, urology consult, renal stent placed -Acute hypoxic respiratory failure currently on 2 L oxygen which is new for patient: pulmonology input noted, wean oxygen as appropriate, nebulizer treatments -Atrial flutter with RVR -possible new onset. Cardiology following. lopressor Incrased to 50MG PO bid with holding parameters. per cardiology Will defer systemic anticoagulation at this time given thrombocytopenia and repeat CBC in AM. Would prefer plts >100k prior to initiation of systemic AC. CAD, s/p PCI and CABG- NOTED Above, asa, statin -HTN- controlled -DM- with hyperglycemia. Continue insulin for better control -Thrombocytopenia-Improving, monitor closely -Acute encephalopathy due to sepsis: Treat above -Acute kidney injury on Chronic kidney disease stage 3. Improving following stent placement. Likely secondary to shock syndrome, Will continue gentle hydration, if no improvement will get Nephrology input. -Hydronephrosis: s/p Cystoscopy with RPG and stent placement yesterday. -Left adrenal adenoma -follow-up outpatient -Infrarenal abdominal aortic aneurysm- 3.3x3.1cm - follow up outpatient. -PAD Moderate to severe- Vascular consult Functional quadriplegia due to CVA with left-sided hemiparesis: Wound care consult, PT/OT eval and treat -Hyperkalemia- resolved -Hypernatermia * d5w, free water fluid -Morbid obesity- BMI 38, NUTRITION CONSULT. -Hypomagnesemia: Replaced -DVT prophylaxis: Subcutaneous heparin full code Disposition: Continued inpatient care, PLAN DISCUSSED WITH PATIENT IN DETAIL will need SNF placement History Interval history: Patient seen and examined, Continues to improve. Nurse notifies me of call from lab stating positive CDiff. Hospitalist Physical - Physical exam Narrative exam: VITAL SIGNS: Reviewed. GENERAL: The patient appears in no acute distress, morbidly obese, lethargic. Vital signs as documented. HEAD: No signs of head trauma. EYES: Pupils are equal. Extraocular motions intact. Anicteric EARS: Hearing grossly intact. MOUTH: Oropharynx is normal. NECK: No adenopathy, no JVD. CHEST: Chest with diminished breath sounds bilaterally. No wheezes, rales, or rhonchi. CARDIAC: Regular rate and rhythm. S1 and S2, without murmurs, gallops, or rubs. VASCULAR: No Edema. Peripheral pulses normal and equal in all extremities. ABDOMEN: Soft, without detectable tenderness. No sign of distention. No rebound or guarding, and no masses palpated. Bowel Sounds normal. MUSCULOSKELETAL: Good range of motion of all major joints. Extremities without clubbing, cyanosis or edema. NEUROLOGIC EXAM: Alert and oriented x 2. No focal sensory or strength deficits. Speech low pitched, inaudible PSYCHIATRIC: unable to assess. SKIN: Sacral pressure ulcer stage II, left femoral TLC - Constitutional Vitals: Temp Pulse Resp BP Pulse Ox 99.2 F 89 20 132/92 98 04/12/17 08:05 04/12/17 10:00 04/12/17 09:38 04/12/17 13:27 04/12/17 09:24 General appearance: Present: no acute distress Results - Labs CBC & Chem 7: 04/12/17 05:14 04/12/17 05:14 Labs: Laboratory Last Values WBC 12.6 K/mm3 (4.5-11.0) H 04/12/17 05:14 RBC 3.46 M/mm3 (3.65-5.03) L 04/12/17 05:14 Hgb 10.9 gm/dl (10.1-14.3) 04/12/17 05:14 Hct 32.4 % (30.3-42.9) 04/12/17 05:14 MCV 93 fl (79-97) 04/12/17 05:14 MCH 32 pg (28-32) 04/12/17 05:14 MCHC 34 % (30-34) 04/12/17 05:14 RDW 15.0 % (13.2-15.2) 04/12/17 05:14 Plt Count 97 K/mm3 (140-440) L 04/12/17 05:14 Add Manual Diff Complete 04/09/17 12:39 Total Counted 100 04/09/17 12:39 Seg Neutrophils % Knot Saw Operator 04/08/17 04:35 Seg Neuts % (Manual) 65.0 % (40.0-70.0) 04/09/17 12:39 Band Neutrophils % 30.0 % 04/09/17 12:39 Lymphocytes % (Manual) 4.0 % (13.4-35.0) L 04/09/17 12:39 Reactive Lymphs % (Man) 0 % 04/09/17 12:39 Monocytes % (Manual) 1.0 % (0.0-7.3) 04/09/17 12:39 Eosinophils % (Manual) 0 % (0.0-4.3) 04/08/17 04:35 Basophils % (Manual) 0 % (0.0-1.8) 04/08/17 04:35 Metamyelocytes % 0 % 04/09/17 12:39 Myelocytes % 0 % 04/09/17 12:39 Promyelocytes % 0 % 04/09/17 12:39 Blast Cells % 0 % 04/09/17 12:39 Nucleated RBC % Not Reportable 04/09/17 12:39 Seg Neutrophils # Man 18.4 K/mm3 (1.8-7.7) H 04/09/17 12:39 Band Neutrophils # 8.5 K/mm3 04/09/17 12:39 Lymphocytes # (Manual) 1.1 K/mm3 (1.2-5.4) L 04/09/17 12:39 Abs React Lymphs (Man) 0.0 K/mm3 04/09/17 12:39 Monocytes # (Manual) 0.3 K/mm3 (0.0-0.8) 04/09/17 12:39 Eosinophils # (Manual) 0.0 K/mm3 (0.0-0.4) 04/09/17 12:39 Basophils # (Manual) 0.0 K/mm3 (0.0-0.1) 04/09/17 12:39 Metamyelocytes # 0.0 K/mm3 04/09/17 12:39 Myelocytes # 0.0 K/mm3 04/09/17 12:39 Promyelocytes # 0.0 K/mm3 04/09/17 12:39 Blast Cells # 0.0 K/mm3 04/09/17 12:39 WBC Morphology Not Reportable 04/09/17 12:39 Hypersegmented Neuts Not Reportable 04/09/17 12:39 Hyposegmented Neuts Not Reportable 04/09/17 12:39 Hypogranular Neuts Not Reportable 04/09/17 12:39 Smudge Cells Not Reportable 04/09/17 12:39 Toxic Granulation Not Reportable 04/09/17 12:39 Toxic Vacuolation Not Reportable 04/09/17 12:39 Dohle Bodies Not Reportable 04/09/17 12:39 Pelger-Huet Anomaly Not Reportable 04/09/17 12:39 Ortiz Rods Not Reportable 04/09/17 12:39 Platelet Estimate Not Reportable 04/09/17 12:39 Clumped Platelets Not Reportable 04/09/17 12:39 Plt Clumps, EDTA Not Reportable 04/09/17 12:39 Large Platelets Not Reportable 04/09/17 12:39 Giant Platelets Not Reportable 04/09/17 12:39 Platelet Satelliting Not Reportable 04/09/17 12:39 Plt Morphology Comment Not Reportable 04/09/17 12:39 RBC Morphology Normal 04/09/17 12:39 Dimorphic RBCs Not Reportable 04/09/17 12:39 Polychromasia Not Reportable 04/09/17 12:39 Hypochromasia Not Reportable 04/09/17 12:39 Poikilocytosis Not Reportable 04/09/17 12:39 Anisocytosis Not Reportable 04/09/17 12:39 Microcytosis Not Reportable 04/09/17 12:39 Macrocytosis Not Reportable 04/09/17 12:39 Spherocytes Not Reportable 04/09/17 12:39 Pappenheimer Bodies Not Reportable 04/09/17 12:39 Sickle Cells Not Reportable 04/09/17 12:39 Target Cells Not Reportable 04/09/17 12:39 Tear Drop Cells Not Reportable 04/09/17 12:39 Ovalocytes Not Reportable 04/09/17 12:39 Helmet Cells Not Reportable 04/09/17 12:39 [place] Bodies Not Reportable 04/09/17 12:39 [place] Rings Not Reportable 04/09/17 12:39 [place] Cells Not Reportable 04/09/17 12:39 Bite Cells Not Reportable 04/09/17 12:39 Crenated Cell Not Reportable 04/09/17 12:39 Elliptocytes Not Reportable 04/09/17 12:39 Acanthocytes (Spur) Not Reportable 04/09/17 12:39 Rouleaux Not Reportable 04/09/17 12:39 Hemoglobin C Crystals Not Reportable 04/09/17 12:39 Schistocytes Not Reportable 04/09/17 12:39 Malaria parasites Not Reportable 04/09/17 12:39 [place] Bodies Not Reportable 04/09/17 12:39 Hem Pathologist Commnt No 04/09/17 12:39 PT 17.7 Sec. (12.2-14.9) H 04/09/17 19:53 INR 1.38 (0.87-1.13) H 04/09/17 19:53 APTT 43.4 Sec. (24.2-36.6) H 04/09/17 19:53 Fibrinogen 727 mg/dl (211-480) H 04/10/17 07:45 POC ABG pH 7.418 (7.35-7.45) 04/08/17 04:26 POC ABG pCO2 27.9 (35-45) L 04/08/17 04:26 POC ABG pO2 75 (80-105) L 04/08/17 04:26 POC ABG HCO3 18.0 04/08/17 04:26 POC ABG Total CO2 19 04/08/17 04:26 POC ABG O2 Sat 96 04/08/17 04:26 POC ABG Base Excess -7 04/08/17 04:26 FiO2 32 % 04/08/17 04:26 Sodium 146 mmol/L (137-145) H 04/12/17 05:14 Potassium 3.2 mmol/L (3.6-5.0) L 04/12/17 05:14 Chloride 109.8 mmol/L (98-107) H 04/12/17 05:14 Carbon Dioxide 23 mmol/L (22-30) 04/12/17 05:14 Anion Gap 16 mmol/L 04/12/17 05:14 BUN 19 mg/dL (7-17) H 04/12/17 05:14 Creatinine 0.9 mg/dL (0.7-1.2) 04/12/17 05:14 Estimated GFR > 60 ml/min 04/12/17 05:14 BUN/Creatinine Ratio 21 % 04/12/17 05:14 Glucose 135 mg/dL (65-100) H 04/12/17 05:14 POC Glucose 130 (70-105) H 04/12/17 04:54 Lactic Acid 1.30 mmol/L (0.7-2.0) 04/10/17 07:45 Calcium 8.3 mg/dL (8.4-10.2) L 04/12/17 05:14 Magnesium 2.00 mg/dL (1.7-2.3) 04/09/17 07:52 Total Bilirubin 1.50 mg/dL (0.1-1.2) H 04/08/17 06:55 AST 39 units/L (5-40) 04/08/17 06:55 ALT 20 units/L (7-56) 04/08/17 06:55 Alkaline Phosphatase 167 units/L (35-129) H 04/08/17 06:55 Total Creatine Kinase 284 units/L (30-135) H 04/08/17 04:35 CK-MB (CK-2) 2.2 ng/mL (0.0-4.0) 04/08/17 04:35 CK-MB (CK-2) Rel Index 0.7 (0-4) 04/08/17 04:35 Troponin T 0.034 ng/mL (0.00-0.029) H 04/08/17 04:35 C-Reactive Protein < 0.03 mg/dL (0.00-1.30) 04/12/17 05:14 NT-Pro-B Natriuret Pep 2928 pg/mL (0-900) H 04/08/17 06:36 Total Protein 7.0 g/dL (6.3-8.2) 04/08/17 06:55 Albumin 2.7 g/dL (3.9-5) L 04/10/17 16:45 Albumin/Globulin Ratio 1.3 % 04/08/17 06:55 Triglycerides 120 mg/dL (2-149) 04/08/17 04:35 Cholesterol 118 mg/dL (50-199) 04/08/17 04:35 LDL Cholesterol Direct 56 mg/dL (50-130) 04/08/17 04:35 HDL Cholesterol 38 mg/dL (40-59) L 04/08/17 04:35 Cholesterol/HDL Ratio 3.10 % 04/08/17 04:35 Lipase 9 units/L (13-60) L 04/08/17 04:35 TSH 1.280 mlU/mL (0.270-4.200) 04/09/17 19:56 Free T4 1.32 ng/dL (0.76-1.46) 04/09/17 19:55 Urine Color Yellow (Yellow) 04/08/17 05:08 Urine Turbidity Clear (Clear) 04/08/17 05:08 Urine pH 5.0 (5.0-7.0) 04/08/17 05:08 Ur Specific [place] 1.016 (1.003-1.030) 04/08/17 05:08 Urine Protein 100 mg/dl mg/dL (Negative) 04/08/17 05:08 Urine Glucose (UA) Neg mg/dL (Negative) 04/08/17 05:08 Urine Ketones Neg mg/dL (Negative) 04/08/17 05:08 Urine Blood Mod (Negative) 04/08/17 05:08 Urine Nitrite Pos (Negative) 04/08/17 05:08 Urine Bilirubin Neg (Negative) 04/08/17 05:08 Urine Urobilinogen < 2.0 mg/dL (<2.0) 04/08/17 05:08 Ur Leukocyte Esterase Lg (Negative) 04/08/17 05:08 Urine WBC (Auto) > 182.0 /HPF (0.0-6.0) H 04/08/17 05:08 Urine RBC (Auto) 14.0 /HPF (0.0-6.0) 04/08/17 05:08 U Epithel Cells (Auto) 1.0 /HPF (0-13.0) 04/08/17 05:08 Urine Bacteria (Auto) 4+ /HPF (Negative) 04/08/17 05:08 Urine WBC Clumps 3+ /HPF 04/08/17 05:08 Urine Mucus 1+ /HPF 04/08/17 05:08
[2017-04-12 16:32] LABS: Magnesium 1.8 mg/dL (1.7-2.3); Phosphorous 2.2 mg/dL (2.5-4.5)
--- NOTE | 2017-04-12 16:52 | Progress Note ---
Assessment and Plan Imp: 1. UTI -> pyelonephritis/hydronephrosis 2. Severe sepsis 3. ROSA MARIA 4. Acute respiratory failure, hypoxia 5. Lactic acidosis, better 6. Thrombocytopenia, likely due to sepsis 7. Bacteremia 8. ICMP 9. C.diff colitis Rec: 1. On Rocephin; surveillance cultures; on PO Vanco as well 2. Cr improving; stopped IVFs 3. Monitor platelets 4. Remove CVL 5. Pulm-johnson stable; monitor Plan of care reviewed w/ patient, she understands/agrees; no family present Subjective Date of service: 04/12/17 Principal diagnosis: AFlutter RVR ; sepsis Interval history: No events. SOB is stable. On NC. No other new complaints. HD stable. Abd pain better. Active Medications Albuterol (Proventil) 2.5 mg IH Q4HRT PRN PRN Reason: Shortness Of Breath Last Admin: 04/09/17 05:07 Dose: 2.5 mg Albuterol/Ipratropium (Duoneb *Not For Prn Use*) 1 ampul IH TIDRT [facility] Last Admin: 04/12/17 15:04 Dose: Not Given Aspirin (Aspirin) 325 mg PO DAILY [facility] Last Admin: 04/12/17 10:11 Dose: 325 mg Ceftriaxone Sodium (Rocephin) 1 gm IM Q24HR HERMELINDO PRN Reason: Protocol Last Admin: 04/12/17 14:13 Dose: 1 gm Dextrose (D50w (25gm) Syringe) 50 ml IV PRN PRN PRN Reason: Hypoglycemia Docusate Sodium (Colace) 100 mg PO BID [facility] Last Admin: 04/12/17 10:47 Dose: Not Given Gabapentin (Neurontin) 300 mg PO Q8HR [facility] Last Admin: 04/12/17 14:12 Dose: 300 mg Heparin Sodium (Porcine) (Heparin) 5,000 unit SUB-Q Q12HR [facility] Last Admin: 04/12/17 10:11 Dose: 5,000 unit Hydromorphone HCl (Dilaudid) 0.5 mg IV Q3H PRN PRN Reason: Pain , Severe (7-10) Last Admin: 04/12/17 05:19 Dose: 0.5 mg Dextrose (D5w) 1,000 mls @ 75 mls/hr IV DIRECT [facility] Last Admin: 04/12/17 14:13 Dose: 75 mls/hr Insulin Aspart (Novolog) 0 units SUB-Q Q6HR [facility] PRN Reason: Protocol Last Admin: 04/12/17 14:16 Dose: Not Given Lisinopril (Zestril) 2.5 mg PO QDAY [facility] Metoprolol Tartrate (Lopressor) 50 mg PO BID [facility] Metronidazole (Flagyl) 500 mg PO Q8HR [facility] Last Admin: 04/12/17 14:12 Dose: 500 mg Pantoprazole Sodium (Protonix) 20 mg PO QDAY [facility] Last Admin: 04/12/17 10:11 Dose: 20 mg Prednisolone Acetate (Pred Forte 1%) 1 drops OU QID [facility] Last Admin: 04/12/17 15:02 Dose: 1 drops Sertraline HCl (Zoloft) 12.5 mg PO QDAY [facility] Last Admin: 04/12/17 10:11 Dose: 12.5 mg Simvastatin (Zocor) 20 mg PO QHS [facility] Last Admin: 04/11/17 21:23 Dose: 20 mg Vancomycin HCl (Vancomycin Po) 250 mg PO Q6HR [facility] Last Admin: 04/12/17 14:12 Dose: 250 mg Objective Vital Signs - 12hr 04/12/17 04/12/17 04/12/17 05:19 08:05 09:22 Temperature 99.2 F Pulse Rate 143 H Pulse Rate [ 115 H Anterior Bilateral Throughout] Respiratory 20 20 Rate Respiratory 20 Rate [Anterior Bilateral Throughout] Blood Pressure 131/83 O2 Sat by Pulse 97 Oximetry 04/12/17 04/12/17 04/12/17 09:24 09:38 10:00 Temperature Pulse Rate 89 Pulse Rate [ 126 H Anterior Bilateral Throughout] Respiratory Rate Respiratory 20 Rate [Anterior Bilateral Throughout] Blood Pressure O2 Sat by Pulse 98 Oximetry 04/12/17 13:27 Temperature Pulse Rate Pulse Rate [ Anterior Bilateral Throughout] Respiratory Rate Respiratory Rate [Anterior Bilateral Throughout] Blood Pressure 132/92 O2 Sat by Pulse Oximetry Constitutional: alert, other (awake) Eyes: non-icteric ENT: oropharynx moist Neck: supple Effort: normal Ascultation: Bilateral: diminished breath sounds (due to obesity, no wheezes/ crackles) Cardiovascular: regular rate and rhythm (no mrg) Gastrointestinal: normoactive bowel sounds, soft, non-tender, non-distended Integumentary: normal Extremities: no cyanosis, edema (trace lower extremity edema) Neurologic: normal mental status, pupils equal and round, other (L sided hemiparesis) Psychiatric: mood appropriate, affect normal CBC and BMP: 04/12/17 05:14 04/12/17 05:14 ABG, PT/INR, D-dimer: ABG POC ABG pH 7.418 (7.35-7.45) 04/08/17 04:26 POC ABG pCO2 27.9 (35-45) L 04/08/17 04:26 POC ABG pO2 75 (80-105) L 04/08/17 04:26 POC ABG HCO3 18.0 04/08/17 04:26 POC ABG Total CO2 19 04/08/17 04:26 POC ABG O2 Sat 96 04/08/17 04:26 PT/INR, D-dimer PT 17.7 Sec. (12.2-14.9) H 04/09/17 19:53 INR 1.38 (0.87-1.13) H 04/09/17 19:53 Abnormal lab findings: Abnormal Labs 04/08/17 04/09/17 04/09/17 08:55 00:03 04:54 WBC RBC Plt Count Lymphocytes % (Manual) Seg Neutrophils # Man Lymphocytes # (Manual) PT INR APTT Fibrinogen Sodium Potassium Chloride Carbon Dioxide BUN Creatinine Glucose POC Glucose 163 H 156 H Lactic Acid 5.70 H* Calcium Phosphorus C-Reactive Protein Albumin 04/09/17 04/09/17 04/09/17 07:52 12:39 19:53 WBC 28.3 H RBC 3.54 L Plt Count 80 L Lymphocytes % (Manual) 4.0 L Seg Neutrophils # Man 18.4 H Lymphocytes # (Manual) 1.1 L PT 17.7 H INR 1.38 H APTT 43.4 H Fibrinogen Sodium Potassium Chloride Carbon Dioxide 20 L BUN 30 H Creatinine 1.6 H Glucose 142 H POC Glucose Lactic Acid Calcium 7.8 L Phosphorus C-Reactive Protein Albumin 04/09/17 04/09/17 04/10/17 19:53 23:35 04:00 WBC 23.7 H RBC 3.57 L Plt Count 99 L Lymphocytes % (Manual) Seg Neutrophils # Man Lymphocytes # (Manual) PT INR APTT Fibrinogen Sodium Potassium Chloride Carbon Dioxide BUN Creatinine Glucose POC Glucose 219 H Lactic Acid 2.80 H* Calcium Phosphorus C-Reactive Protein Albumin 04/10/17 04/10/17 04/10/17 04:00 04:00 05:33 WBC RBC Plt Count Lymphocytes % (Manual) Seg Neutrophils # Man Lymphocytes # (Manual) PT INR APTT Fibrinogen Sodium Potassium Chloride Carbon Dioxide 21 L BUN 30 H Creatinine 1.8 H Glucose 164 H POC Glucose 255 H Lactic Acid Calcium 8.2 L Phosphorus C-Reactive Protein 34.00 H Albumin 04/10/17 04/10/17 04/10/17 07:45 11:20 11:58 WBC RBC Plt Count Lymphocytes % (Manual) Seg Neutrophils # Man Lymphocytes # (Manual) PT INR APTT Fibrinogen 727 H Sodium Potassium Chloride Carbon Dioxide BUN Creatinine Glucose POC Glucose 202 H 183 H Lactic Acid Calcium Phosphorus C-Reactive Protein Albumin 04/10/17 04/10/17 04/10/17 13:46 16:45 17:38 WBC RBC Plt Count Lymphocytes % (Manual) Seg Neutrophils # Man Lymphocytes # (Manual) PT INR APTT Fibrinogen Sodium Potassium Chloride Carbon Dioxide BUN Creatinine Glucose POC Glucose 213 H 173 H Lactic Acid Calcium Phosphorus C-Reactive Protein Albumin 2.7 L 04/10/17 04/11/17 04/11/17 23:33 04:00 04:00 WBC 17.9 H RBC 3.26 L Plt Count 93 L Lymphocytes % (Manual) Seg Neutrophils # Man Lymphocytes # (Manual) PT INR APTT Fibrinogen Sodium 146 H Potassium 3.5 L Chloride 111.0 H Carbon Dioxide BUN 30 H Creatinine 1.3 H Glucose 157 H POC Glucose 140 H Lactic Acid Calcium 8.2 L Phosphorus C-Reactive Protein Albumin 04/11/17 04/11/17 04/12/17 05:59 12:02 04:54 WBC RBC Plt Count Lymphocytes % (Manual) Seg Neutrophils # Man Lymphocytes # (Manual) PT INR APTT Fibrinogen Sodium Potassium Chloride Carbon Dioxide BUN Creatinine Glucose POC Glucose 187 H 165 H 130 H Lactic Acid Calcium Phosphorus C-Reactive Protein Albumin 04/12/17 04/12/17 04/12/17 05:14 05:14 05:14 WBC 12.6 H RBC 3.46 L Plt Count 97 L Lymphocytes % (Manual) Seg Neutrophils # Man Lymphocytes # (Manual) PT INR APTT Fibrinogen Sodium 146 H Potassium 3.2 L Chloride 109.8 H Carbon Dioxide BUN 19 H Creatinine Glucose 135 H POC Glucose Lactic Acid Calcium 8.3 L Phosphorus 2.20 L C-Reactive Protein Albumin Chest x-ray: report reviewed, image reviewed
[2017-04-12] MEDS: ZOCOR PO SCH (22:12)
[2017-04-13] MEDS: VANCOMYCIN PO PO SCH ×3 (05:30→17:45)
[2017-04-13] MEDS: NEURONTIN PO SCH ×3 (05:30→23:30)
[2017-04-13] MEDS: PROVENTIL IH PRN (05:38)
[2017-04-13] MEDS: D5W 1,000 ML IV SCH ×2 (05:43→23:57)
[2017-04-13] MEDS: NOVOLOG SUB-Q SCH ×4 (05:44→17:44)
[2017-04-13] MEDS: FLAGYL PO SCH ×3 (05:58→23:59)
[2017-04-13 06:39] LABS: Hematocrit 33.7 % (30.3-42.9); Hemoglobin 11.5 gm/dl (10.1-14.3); Mean Corpuscular HGB Conc 34 % (30-34); Mean Corpuscular Hemoglobin 32 pg (28-32); Mean Corpuscular Volume 93 fl (79-97); Platelet Count 133 K/mm3 (140-440); Red Blood Count 3.62 M/mm3 (3.65-5.03); Red Cell Distribution Width 14.8 % (13.2-15.2); White Blood Count 13.5 K/mm3 (4.5-11.0)
[2017-04-13 06:53] LABS: Anion Gap 19 mmol/L; BUN/Creatinine Ratio 15; Blood Urea Nitrogen 12 mg/dL (7-17); Calcium 8.4 mg/dL (8.4-10.2); Carbon Dioxide 24 mmol/L (22-30); Chloride 104.3 mmol/L (98-107); Glucose 202 mg/dL (65-100); Potassium 3.3 mmol/L (3.6-5.0); Sodium 144 mmol/L (137-145)
[2017-04-13] MEDS: DUONEB *Not for PRN Use IH SCH ×3 (08:53→20:24)
--- NOTE | 2017-04-13 09:22 | Progress Note ---
Assessment and Plan Assessment and plan: Patient is a 71-year-old woman from [facility] under the care of Dr. Bryce Carrillo with a history of insulin-dependent diabetes mellitus, hypertension, depression, GERD, peripheral neuropathy, glaucoma, acute MN, coronary artery disease status post CABG and stent, COPD, CHF EF 45% on negative stress test December 2016, CVA with functional quadriplegia, contracted legs, dysphasia and left-sided hemiparesis who presents with "possible aspiration, labored breathing, sats fluctuating" per senior care report. Patient has ams with lethargy. Portable chest x-ray read as mild cardiomegaly, segmental atelectasis left lower lobe versus small left pleural effusion. Urinalysis indicative of urinary tract infection. Patient was found to be hypotensive and a central line was placed, Levophed ordered but not given because blood pressure temporarily responded to IV fluid boluses; however, patient has h/o of chf/cad, EF of 45%. Therefore must be careful with IV hydration. -Septic shock likely due to UTI: * improving, Continue with IV antibiotics Rocephin, IV fluids, follow cultures , ID input noted. Repeat cultures negative x 24 hrs, will place picc line for abx once negative for 72 hrs. -Cdiff: * cONT on PO FLAGYL and vancomycin, D/W ID, patient still needs Rocephin due to complex UTI. Isolation -Gram negative valentino bactermia- ECOLI. * Likely secondary to UTI, Continue abx, Echo- EF 30-35% With diastolic dysfunction and no mention of valvular vegitation. -Acute Cystis with right-sided hydronephrosis and obstructing nephrolithiasis * treatment as noted above, urology consult, renal stent placed. Follow with Urology outpatient -Acute hypoxic respiratory failure * pulmonology input noted, wean oxygen as appropriate, nebulizer treatments. -Atrial flutter with RVR -possible new onset. Cardiology following. * lopressor Incrased to 50MG PO bid with holding parameters. Eliquis started with improved plt CAD, s/p PCI and CABG- * NOTED Above, asa, statin -HTN- controlled -DM- with hyperglycemia. * Continue insulin for better control -Thrombocytopenia- * 133 Today, Improved, monitor closely -Acute encephalopathy due to sepsis: Treat above -Acute kidney injury on Chronic kidney disease stage 3. * Resolved following stent placement. Likely secondary to shock syndrome. -Hydronephrosis: s/p Cystoscopy with RPG and stent placement yesterday. -Left adrenal adenoma -follow-up outpatient -Infrarenal abdominal aortic aneurysm- 3.3x3.1cm - follow up outpatient. -PAD Moderate to severe- Vascular consult OUTPATIENT Functional quadriplegia due to CVA with left-sided hemiparesis: * Wound care consult, PT/OT eval and treat -Hyperkalemia- resolved -Hypernatermia * Resolved. Will stop D5W -Morbid obesity- BMI 38, NUTRITION CONSULT. -Hypomagnesemia: Replaced -DVT prophylaxis: Subcutaneous heparin full code Disposition: Continued inpatient care, PLAN DISCUSSED WITH PATIENT IN DETAIL Discharge to SNF placement in one to two days. History Interval history: Patient seen and examined, Continues to improve. reports recurrent diarrhea overnight. Hospitalist Physical - Physical exam Narrative exam: VITAL SIGNS: Reviewed. GENERAL: The patient appears in no acute distress, morbidly obese, lethargic. Vital signs as documented. HEAD: No signs of head trauma. EYES: Pupils are equal. Extraocular motions intact. Anicteric EARS: Hearing grossly intact. MOUTH: Oropharynx is normal. NECK: No adenopathy, no JVD. CHEST: Chest with diminished breath sounds bilaterally. No wheezes, rales, or rhonchi. CARDIAC: Regular rate and rhythm. S1 and S2, without murmurs, gallops, or rubs. VASCULAR: No Edema. Peripheral pulses normal and equal in all extremities. ABDOMEN: Soft, without detectable tenderness. No sign of distention. No rebound or guarding, and no masses palpated. Bowel Sounds normal. MUSCULOSKELETAL: Good range of motion of all major joints. Extremities without clubbing, cyanosis or edema. NEUROLOGIC EXAM: Alert and oriented x 2. No focal sensory or strength deficits. Speech low pitched, inaudible PSYCHIATRIC: unable to assess. SKIN: Sacral pressure ulcer stage II, left femoral TLC - Constitutional Vitals: Temp Pulse Resp BP Pulse Ox 99.3 F 98 H 18 130/85 100 04/13/17 08:45 04/13/17 09:07 04/13/17 09:07 04/13/17 08:45 04/13/17 09:05 General appearance: Present: no acute distress Results - Labs CBC & Chem 7: 04/13/17 06:03 04/13/17 06:03 Labs: Laboratory Last Values WBC 13.5 K/mm3 (4.5-11.0) H 04/13/17 06:03 RBC 3.62 M/mm3 (3.65-5.03) L 04/13/17 06:03 Hgb 11.5 gm/dl (10.1-14.3) 04/13/17 06:03 Hct 33.7 % (30.3-42.9) 04/13/17 06:03 MCV 93 fl (79-97) 04/13/17 06:03 MCH 32 pg (28-32) 04/13/17 06:03 MCHC 34 % (30-34) 04/13/17 06:03 RDW 14.8 % (13.2-15.2) 04/13/17 06:03 Plt Count 133 K/mm3 (140-440) L 04/13/17 06:03 Add Manual Diff Complete 04/09/17 12:39 Total Counted 100 04/09/17 12:39 Seg Neutrophils % [place] Chaser 04/08/17 04:35 Seg Neuts % (Manual) 65.0 % (40.0-70.0) 04/09/17 12:39 Band Neutrophils % 30.0 % 04/09/17 12:39 Lymphocytes % (Manual) 4.0 % (13.4-35.0) L 04/09/17 12:39 Reactive Lymphs % (Man) 0 % 04/09/17 12:39 Monocytes % (Manual) 1.0 % (0.0-7.3) 04/09/17 12:39 Eosinophils % (Manual) 0 % (0.0-4.3) 04/08/17 04:35 Basophils % (Manual) 0 % (0.0-1.8) 04/08/17 04:35 Metamyelocytes % 0 % 04/09/17 12:39 Myelocytes % 0 % 04/09/17 12:39 Promyelocytes % 0 % 04/09/17 12:39 Blast Cells % 0 % 04/09/17 12:39 Nucleated RBC % Not Reportable 04/09/17 12:39 Seg Neutrophils # Man 18.4 K/mm3 (1.8-7.7) H 04/09/17 12:39 Band Neutrophils # 8.5 K/mm3 04/09/17 12:39 Lymphocytes # (Manual) 1.1 K/mm3 (1.2-5.4) L 04/09/17 12:39 Abs React Lymphs (Man) 0.0 K/mm3 04/09/17 12:39 Monocytes # (Manual) 0.3 K/mm3 (0.0-0.8) 04/09/17 12:39 Eosinophils # (Manual) 0.0 K/mm3 (0.0-0.4) 04/09/17 12:39 Basophils # (Manual) 0.0 K/mm3 (0.0-0.1) 04/09/17 12:39 Metamyelocytes # 0.0 K/mm3 04/09/17 12:39 Myelocytes # 0.0 K/mm3 04/09/17 12:39 Promyelocytes # 0.0 K/mm3 04/09/17 12:39 Blast Cells # 0.0 K/mm3 04/09/17 12:39 WBC Morphology Not Reportable 04/09/17 12:39 Hypersegmented Neuts Not Reportable 04/09/17 12:39 Hyposegmented Neuts Not Reportable 04/09/17 12:39 Hypogranular Neuts Not Reportable 04/09/17 12:39 Smudge Cells Not Reportable 04/09/17 12:39 Toxic Granulation Not Reportable 04/09/17 12:39 Toxic Vacuolation Not Reportable 04/09/17 12:39 Dohle Bodies Not Reportable 04/09/17 12:39 Pelger-Huet Anomaly Not Reportable 04/09/17 12:39 Ortiz Rods Not Reportable 04/09/17 12:39 Platelet Estimate Not Reportable 04/09/17 12:39 Clumped Platelets Not Reportable 04/09/17 12:39 Plt Clumps, EDTA Not Reportable 04/09/17 12:39 Large Platelets Not Reportable 04/09/17 12:39 Giant Platelets Not Reportable 04/09/17 12:39 Platelet Satelliting Not Reportable 04/09/17 12:39 Plt Morphology Comment Not Reportable 04/09/17 12:39 RBC Morphology Normal 04/09/17 12:39 Dimorphic RBCs Not Reportable 04/09/17 12:39 Polychromasia Not Reportable 04/09/17 12:39 Hypochromasia Not Reportable 04/09/17 12:39 Poikilocytosis Not Reportable 04/09/17 12:39 Anisocytosis Not Reportable 04/09/17 12:39 Microcytosis Not Reportable 04/09/17 12:39 Macrocytosis Not Reportable 04/09/17 12:39 Spherocytes Not Reportable 04/09/17 12:39 Pappenheimer Bodies Not Reportable 04/09/17 12:39 Sickle Cells Not Reportable 04/09/17 12:39 Target Cells Not Reportable 04/09/17 12:39 Tear Drop Cells Not Reportable 04/09/17 12:39 Ovalocytes Not Reportable 04/09/17 12:39 Helmet Cells Not Reportable 04/09/17 12:39 [place] Bodies Not Reportable 04/09/17 12:39 [place] Rings Not Reportable 04/09/17 12:39 [place] Cells Not Reportable 04/09/17 12:39 Bite Cells Not Reportable 04/09/17 12:39 Crenated Cell Not Reportable 04/09/17 12:39 Elliptocytes Not Reportable 04/09/17 12:39 Acanthocytes (Spur) Not Reportable 04/09/17 12:39 Rouleaux Not Reportable 04/09/17 12:39 Hemoglobin C Crystals Not Reportable 04/09/17 12:39 Schistocytes Not Reportable 04/09/17 12:39 Malaria parasites Not Reportable 04/09/17 12:39 [place] Bodies Not Reportable 04/09/17 12:39 Hem Pathologist Commnt No 04/09/17 12:39 PT 17.7 Sec. (12.2-14.9) H 04/09/17 19:53 INR 1.38 (0.87-1.13) H 04/09/17 19:53 APTT 43.4 Sec. (24.2-36.6) H 04/09/17 19:53 Fibrinogen 727 mg/dl (211-480) H 04/10/17 07:45 POC ABG pH 7.418 (7.35-7.45) 04/08/17 04:26 POC ABG pCO2 27.9 (35-45) L 04/08/17 04:26 POC ABG pO2 75 (80-105) L 04/08/17 04:26 POC ABG HCO3 18.0 04/08/17 04:26 POC ABG Total CO2 19 04/08/17 04:26 POC ABG O2 Sat 96 04/08/17 04:26 POC ABG Base Excess -7 04/08/17 04:26 FiO2 32 % 04/08/17 04:26 Sodium 144 mmol/L (137-145) 04/13/17 06:03 Potassium 3.3 mmol/L (3.6-5.0) L 04/13/17 06:03 Chloride 104.3 mmol/L (98-107) 04/13/17 06:03 Carbon Dioxide 24 mmol/L (22-30) 04/13/17 06:03 Anion Gap 19 mmol/L 04/13/17 06:03 BUN 12 mg/dL (7-17) 04/13/17 06:03 Creatinine 0.8 mg/dL (0.7-1.2) 04/13/17 06:03 Estimated GFR > 60 ml/min 04/13/17 06:03 BUN/Creatinine Ratio 15 % 04/13/17 06:03 Glucose 202 mg/dL (65-100) H 04/13/17 06:03 POC Glucose 176 (70-105) H 04/13/17 05:38 Lactic Acid 1.30 mmol/L (0.7-2.0) 04/10/17 07:45 Calcium 8.4 mg/dL (8.4-10.2) 04/13/17 06:03 Phosphorus 2.20 mg/dL (2.5-4.5) L 04/12/17 05:14 Magnesium 1.80 mg/dL (1.7-2.3) 04/12/17 05:14 Total Bilirubin 1.50 mg/dL (0.1-1.2) H 04/08/17 06:55 AST 39 units/L (5-40) 04/08/17 06:55 ALT 20 units/L (7-56) 04/08/17 06:55 Alkaline Phosphatase 167 units/L (35-129) H 04/08/17 06:55 Total Creatine Kinase 284 units/L (30-135) H 04/08/17 04:35 CK-MB (CK-2) 2.2 ng/mL (0.0-4.0) 04/08/17 04:35 CK-MB (CK-2) Rel Index 0.7 (0-4) 04/08/17 04:35 Troponin T 0.034 ng/mL (0.00-0.029) H 04/08/17 04:35 C-Reactive Protein < 0.03 mg/dL (0.00-1.30) 04/12/17 05:14 NT-Pro-B Natriuret Pep 2928 pg/mL (0-900) H 04/08/17 06:36 Total Protein 7.0 g/dL (6.3-8.2) 04/08/17 06:55 Albumin 2.7 g/dL (3.9-5) L 04/10/17 16:45 Albumin/Globulin Ratio 1.3 % 04/08/17 06:55 Triglycerides 120 mg/dL (2-149) 04/08/17 04:35 Cholesterol 118 mg/dL (50-199) 04/08/17 04:35 LDL Cholesterol Direct 56 mg/dL (50-130) 04/08/17 04:35 HDL Cholesterol 38 mg/dL (40-59) L 04/08/17 04:35 Cholesterol/HDL Ratio 3.10 % 04/08/17 04:35 Lipase 9 units/L (13-60) L 04/08/17 04:35 TSH 1.280 mlU/mL (0.270-4.200) 04/09/17 19:56 Free T4 1.32 ng/dL (0.76-1.46) 04/09/17 19:55 Urine Color Yellow (Yellow) 04/08/17 05:08 Urine Turbidity Clear (Clear) 04/08/17 05:08 Urine pH 5.0 (5.0-7.0) 04/08/17 05:08 Ur Specific [place] 1.016 (1.003-1.030) 04/08/17 05:08 Urine Protein 100 mg/dl mg/dL (Negative) 04/08/17 05:08 Urine Glucose (UA) Neg mg/dL (Negative) 04/08/17 05:08 Urine Ketones Neg mg/dL (Negative) 04/08/17 05:08 Urine Blood Mod (Negative) 04/08/17 05:08 Urine Nitrite Pos (Negative) 04/08/17 05:08 Urine Bilirubin Neg (Negative) 04/08/17 05:08 Urine Urobilinogen < 2.0 mg/dL (<2.0) 04/08/17 05:08 Ur Leukocyte Esterase Lg (Negative) 04/08/17 05:08 Urine WBC (Auto) > 182.0 /HPF (0.0-6.0) H 04/08/17 05:08 Urine RBC (Auto) 14.0 /HPF (0.0-6.0) 04/08/17 05:08 U Epithel Cells (Auto) 1.0 /HPF (0-13.0) 04/08/17 05:08 Urine Bacteria (Auto) 4+ /HPF (Negative) 04/08/17 05:08 Urine WBC Clumps 3+ /HPF 04/08/17 05:08 Urine Mucus 1+ /HPF 04/08/17 05:08
[2017-04-13] MEDS: ASPIRIN PO SCH (09:35)
[2017-04-13] MEDS: ZOLOFT PO SCH (09:35)
[2017-04-13] MEDS: COLACE PO SCH ×2 (09:35→23:58)
[2017-04-13] MEDS: PROTONIX PO SCH (09:37)
[2017-04-13] MEDS: ZESTRIL PO SCH (09:38)
[2017-04-13] MEDS: LOPRESSOR PO SCH ×3 (09:39→20:20)
[2017-04-13] MEDS: HEPARIN SUB-Q SCH (09:39)
[2017-04-13] MEDS: PRED FORTE 1% OU SCH ×4 (09:40→23:01)
[2017-04-13] MEDS: ROCEPHIN IM SCH (09:40)
[2017-04-13] MEDS ORDERED: ROCEPHIN/NS 1 GM/50 ML 1 GM/50 ML BAG IV SCH (10:00)
--- NOTE | 2017-04-13 11:37 | Progress Note ---
Assessment and Plan Assessment: Paroxysmal atrial flutter with RVR CAD, s/p PCI and CABG CMP - EF 30-35%; presumably nonischemic as stress test 12/2016 was negative for ischemia, EF 43% UTI / sepsis / GNR bacteremia / C. DIFF Positive Right hydronephrosis - s/p cysto, rpg, stent (6x 24 with short internal string) ROSA MARIA - improved Acute respiratory failure - improved Lactic acidosis Hypomag - repleted Hypokalemia Thrombocytopenia - improving HTN DM GERD H/o CVA with functional quadriplegia, contracted legs, dysphasia and left-sided hemiparesis Plan: Increase lopressor to 50mg PO TID. Cont lisinopril. ABX per primary. Replete serum K+. Platelets improved and pt with no evidence of bleeding. 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 No further urological procedures planned on this admission per primary. Will initiate Eliquis, 5mg PO BID. Assessment and plan reviewed with pt at bedside. The patient has been seen in conjunction with Dr. Hameed who agrees with the assessment and plan of care. Subjective Date of service: 04/13/17 Principal diagnosis: AFlutter RVR ; sepsis Interval history: Pt resting in bed, no cardiac complaints. In paroxysmal AFlutter on tele with intermittent RVR. Pt noted to have rate-dependent RBBB. Objective Last Vital Signs Temp 99.3 F 04/13/17 08:45 Pulse 98 H 04/13/17 10:00 Resp 20 04/13/17 10:00 BP 130/85 04/13/17 08:45 Pulse Ox 100 04/13/17 10:00 - Physical Examination General: Appears Well HEENT: Positive: PERRL, Normocephaly, Mucus Membranes Moist Neck: Positive: neck supple, trachea midline Cardiac: Positive: irregularly irregular, S1/S2, Tachycardia Lungs: Positive: Decreased Breath Sounds Neuro: Positive: Grossly Intact Abdomen: Positive: Soft. Negative: Tender Skin: Positive: Clear. Negative: Rash Musculoskeletal: No Fluid Collection, No Pain, Normal Range of Motion Extremities: Absent: edema - Labs and Meds CBC 04/13/17 Range/Units 06:03 WBC 13.5 H (4.5-11.0) K/mm3 RBC 3.62 L (3.65-5.03) M/mm3 Hgb 11.5 (10.1-14.3) gm/dl Hct 33.7 (30.3-42.9) % Plt Count 133 L (140-440) K/mm3 Comprehensive Metabolic Panel 04/13/17 Range/Units 06:03 Sodium 144 (137-145) mmol/L Potassium 3.3 L (3.6-5.0) mmol/L Chloride 104.3 (98-107) mmol/L Carbon Dioxide 24 (22-30) mmol/L BUN 12 (7-17) mg/dL Creatinine 0.8 (0.7-1.2) mg/dL Glucose 202 H (65-100) mg/dL Calcium 8.4 (8.4-10.2) mg/dL - Imaging and Cardiology EKG: image reviewed Echo: report reviewed (07/2013: EF 50%, trace MR, trace TR)
[2017-04-13] MEDS: ELIQUIS PO SCH ×2 (12:48→23:59)
[2017-04-13] MEDS ORDERED: K-DUR PO ONE (13:00)
[2017-04-13] MEDS ORDERED: LOPRESSOR PO SCH (14:00)
--- NOTE | 2017-04-13 14:40 | Progress Note ---
Assessment and Plan ROSA MARIA: -Likely from ATN from Sepsis with low BP with contribution from hydronephrosis from renal stone. -BP improved now. -Cr trending down after stent on Tuesday 04/10 -Supportive care is in order -Renally dose all meds, avoid nephrotoxic meds Hydronephrosis, Renal stone: -Mild to Moderate on CT with Right UPJ stone. -Urology Dr Smith on board. s/p Cystoscopy with RPG and stent placement 04/10 -Per Urology Dr Smith. Hypernatremia: -Encourage more PO water intake. -Continue D5W at 75 cc/hr. Improving Hyperphosphatemia: -Will replace Hypokalemia: -Replace PRN Sepsis/UTI: -Has E.Coli bacteremia -On ABx -ID Dr Shepard on board Hypoxia: -Pulm Dr Serrano on board CAD, Aflutter: -s/p PCI and CABG in the past. -On ASA and statin -Cardiology Dr Samaniego on board. DM: -On insulin -Per primary Serjio Odonnell MD Nephrology, Hypertension, Dialysis, Transplantation Phone no: [phone] Subjective Date of service: 04/13/17 Principal diagnosis: AFlutter RVR ; sepsis Interval history: Denies CP/SHOB. Objective - Exam Narrative Exam: GE: Awake HEENT: PERRLA Neck: No JVD Chest: Coarse BS BL CVS: RRR Abd: Soft/BS+ Ext: No cce Neuro: Left hemiparesis - Vital Signs Vital signs: Vital Signs - 12hr 04/13/17 04/13/17 04/13/17 04:10 05:38 08:45 Temperature 97.7 F 99.3 F Pulse Rate 66 98 H Pulse Rate [ 117 H Anterior Bilateral Throughout] Pulse Rate [ Bilateral Throughout] Pulse Rate [ Right Radial] Respiratory 24 26 H Rate Respiratory 20 Rate [Anterior Bilateral Throughout] Respiratory Rate [Back] Respiratory Rate [Bilateral Throughout] Blood Pressure 122/87 130/85 [Left] O2 Sat by Pulse 99 100 Oximetry 04/13/17 04/13/17 04/13/17 08:53 09:05 09:07 Temperature Pulse Rate Pulse Rate [ 98 H 98 H Anterior Bilateral Throughout] Pulse Rate [ 98 H Bilateral Throughout] Pulse Rate [ Right Radial] Respiratory Rate Respiratory 18 18 Rate [Anterior Bilateral Throughout] Respiratory Rate [Back] Respiratory 18 Rate [Bilateral Throughout] Blood Pressure [Left] O2 Sat by Pulse 100 Oximetry 04/13/17 04/13/17 04/13/17 10:00 13:58 14:05 Temperature Pulse Rate 98 H Pulse Rate [ 89 92 H Anterior Bilateral Throughout] Pulse Rate [ 89 92 H Bilateral Throughout] Pulse Rate [ 98 H Right Radial] Respiratory 20 Rate Respiratory 18 16 Rate [Anterior Bilateral Throughout] Respiratory 20 Rate [Back] Respiratory 18 16 Rate [Bilateral Throughout] Blood Pressure [Left] O2 Sat by Pulse 100 Oximetry - Lab 04/13/17 06:03 04/13/17 06:03 Most recent lab results Calcium 8.4 mg/dL (8.4-10.2) 04/13/17 06:03 Phosphorus 2.20 mg/dL (2.5-4.5) L 04/12/17 05:14 Magnesium 1.80 mg/dL (1.7-2.3) 04/12/17 05:14
--- NOTE | 2017-04-13 14:46 | Progress Note ---
Assessment and Plan Imp: 1. UTI -> pyelonephritis/hydronephrosis 2. Severe sepsis 3. ROSA MARIA 4. Acute respiratory failure, hypoxia 5. Lactic acidosis, better 6. Thrombocytopenia, likely due to sepsis 7. Bacteremia 8. ICMP 9. C.diff colitis Rec: 1. On Rocephin; surveillance cultures neg thus far; on PO Vanco as well 2. Cr improving; stopped IVFs 3. Monitor platelets 4. Pulm-johnson stable; monitor Plan of care reviewed w/ patient, she understands/agrees; no family present Subjective Date of service: 04/13/17 Principal diagnosis: AFlutter RVR ; sepsis Interval history: No events. SOB is stable. On NC. No other new complaints. HD stable. Abd pain continues. Active Medications Albuterol (Proventil) 2.5 mg IH Q4HRT PRN PRN Reason: Shortness Of Breath Last Admin: 04/13/17 05:38 Dose: 2.5 mg Albuterol/Ipratropium (Duoneb *Not For Prn Use*) 1 ampul IH TIDRT [facility] Last Admin: 04/13/17 13:58 Dose: 1 ampul Apixaban (Eliquis) 5 mg PO Q12HR HERMELINDO PRN Reason: Protocol Last Admin: 04/13/17 12:48 Dose: 5 mg Aspirin (Aspirin) 325 mg PO DAILY [facility] Last Admin: 04/13/17 09:35 Dose: 325 mg Ceftriaxone Sodium (Rocephin) 1 gm IM Q24HR HERMELINDO PRN Reason: Protocol Last Admin: 04/13/17 09:40 Dose: 1 gm Dextrose (D50w (25gm) Syringe) 50 ml IV PRN PRN PRN Reason: Hypoglycemia Docusate Sodium (Colace) 100 mg PO BID [facility] Last Admin: 04/13/17 09:35 Dose: 100 mg Gabapentin (Neurontin) 300 mg PO Q8HR [facility] Last Admin: 04/13/17 14:38 Dose: 300 mg Hydromorphone HCl (Dilaudid) 0.5 mg IV Q3H PRN PRN Reason: Pain , Severe (7-10) Last Admin: 04/12/17 05:19 Dose: 0.5 mg Dextrose (D5w) 1,000 mls @ 75 mls/hr IV DIRECT [facility] Last Admin: 04/13/17 05:43 Dose: 75 mls/hr Sodium Phosphate 15 mmol/ (Sodium Chloride) 255 mls @ 125 mls/hr IV ONCE ONE Stop: 04/13/17 17:40 Insulin Aspart (Novolog) 0 units SUB-Q Q6HR [facility] PRN Reason: Protocol Last Admin: 04/13/17 14:36 Dose: 3 units Lisinopril (Zestril) 2.5 mg PO QDAY [facility] Last Admin: 04/13/17 09:38 Dose: 2.5 mg Metoprolol Tartrate (Lopressor) 50 mg PO TID [facility] Last Admin: 04/13/17 14:37 Dose: 50 mg Metronidazole (Flagyl) 500 mg PO Q8HR [facility] Last Admin: 04/13/17 14:37 Dose: 500 mg Pantoprazole Sodium (Protonix) 20 mg PO QDAY [facility] Last Admin: 04/13/17 09:37 Dose: 20 mg Prednisolone Acetate (Pred Forte 1%) 1 drops OU QID [facility] Last Admin: 04/13/17 14:38 Dose: 1 drops Sertraline HCl (Zoloft) 12.5 mg PO QDAY [facility] Last Admin: 04/13/17 09:35 Dose: 12.5 mg Simvastatin (Zocor) 20 mg PO QHS [facility] Last Admin: 04/12/17 22:12 Dose: 20 mg Vancomycin HCl (Vancomycin Po) 250 mg PO Q6HR [facility] Last Admin: 04/13/17 12:11 Dose: 250 mg Objective Vital Signs - 12hr 04/13/17 04/13/17 04/13/17 04:10 05:38 08:45 Temperature 97.7 F 99.3 F Pulse Rate 66 98 H Pulse Rate [ 117 H Anterior Bilateral Throughout] Pulse Rate [ Bilateral Throughout] Pulse Rate [ Right Radial] Respiratory 24 26 H Rate Respiratory 20 Rate [Anterior Bilateral Throughout] Respiratory Rate [Back] Respiratory Rate [Bilateral Throughout] Blood Pressure 122/87 130/85 [Left] O2 Sat by Pulse 99 100 Oximetry 04/13/17 04/13/17 04/13/17 08:53 09:05 09:07 Temperature Pulse Rate Pulse Rate [ 98 H 98 H Anterior Bilateral Throughout] Pulse Rate [ 98 H Bilateral Throughout] Pulse Rate [ Right Radial] Respiratory Rate Respiratory 18 18 Rate [Anterior Bilateral Throughout] Respiratory Rate [Back] Respiratory 18 Rate [Bilateral Throughout] Blood Pressure [Left] O2 Sat by Pulse 100 Oximetry 04/13/17 04/13/17 04/13/17 10:00 13:58 14:05 Temperature Pulse Rate 98 H Pulse Rate [ 89 92 H Anterior Bilateral Throughout] Pulse Rate [ 89 92 H Bilateral Throughout] Pulse Rate [ 98 H Right Radial] Respiratory 20 Rate Respiratory 18 16 Rate [Anterior Bilateral Throughout] Respiratory 20 Rate [Back] Respiratory 18 16 Rate [Bilateral Throughout] Blood Pressure [Left] O2 Sat by Pulse 100 Oximetry Constitutional: alert, other (awake) Eyes: non-icteric ENT: oropharynx moist Neck: supple Effort: normal Ascultation: Bilateral: diminished breath sounds (due to obesity, no wheezes/ crackles) Cardiovascular: regular rate and rhythm (no mrg) Gastrointestinal: normoactive bowel sounds, soft, non-tender, non-distended Integumentary: normal Extremities: no cyanosis, edema (trace lower extremity edema) Neurologic: normal mental status, pupils equal and round, other (L sided hemiparesis) Psychiatric: mood appropriate, affect normal CBC and BMP: 04/13/17 06:03 04/13/17 06:03 ABG, PT/INR, D-dimer: ABG POC ABG pH 7.418 (7.35-7.45) 04/08/17 04:26 POC ABG pCO2 27.9 (35-45) L 04/08/17 04:26 POC ABG pO2 75 (80-105) L 04/08/17 04:26 POC ABG HCO3 18.0 04/08/17 04:26 POC ABG Total CO2 19 04/08/17 04:26 POC ABG O2 Sat 96 04/08/17 04:26 PT/INR, D-dimer PT 17.7 Sec. (12.2-14.9) H 04/09/17 19:53 INR 1.38 (0.87-1.13) H 04/09/17 19:53 Abnormal lab findings: Abnormal Labs 04/08/17 04/09/17 04/09/17 08:55 00:03 04:54 WBC RBC Plt Count Lymphocytes % (Manual) Seg Neutrophils # Man Lymphocytes # (Manual) PT INR APTT Fibrinogen Sodium Potassium Chloride Carbon Dioxide BUN Creatinine Glucose POC Glucose 163 H 156 H Lactic Acid 5.70 H* Calcium Phosphorus C-Reactive Protein Albumin 04/09/17 04/09/17 04/09/17 07:52 12:39 19:53 WBC 28.3 H RBC 3.54 L Plt Count 80 L Lymphocytes % (Manual) 4.0 L Seg Neutrophils # Man 18.4 H Lymphocytes # (Manual) 1.1 L PT 17.7 H INR 1.38 H APTT 43.4 H Fibrinogen Sodium Potassium Chloride Carbon Dioxide 20 L BUN 30 H Creatinine 1.6 H Glucose 142 H POC Glucose Lactic Acid Calcium 7.8 L Phosphorus C-Reactive Protein Albumin 04/09/17 04/09/17 04/10/17 19:53 23:35 04:00 WBC 23.7 H RBC 3.57 L Plt Count 99 L Lymphocytes % (Manual) Seg Neutrophils # Man Lymphocytes # (Manual) PT INR APTT Fibrinogen Sodium Potassium Chloride Carbon Dioxide BUN Creatinine Glucose POC Glucose 219 H Lactic Acid 2.80 H* Calcium Phosphorus C-Reactive Protein Albumin 04/10/17 04/10/17 04/10/17 04:00 04:00 05:33 WBC RBC Plt Count Lymphocytes % (Manual) Seg Neutrophils # Man Lymphocytes # (Manual) PT INR APTT Fibrinogen Sodium Potassium Chloride Carbon Dioxide 21 L BUN 30 H Creatinine 1.8 H Glucose 164 H POC Glucose 255 H Lactic Acid Calcium 8.2 L Phosphorus C-Reactive Protein 34.00 H Albumin 04/10/17 04/10/17 04/10/17 07:45 11:20 11:58 WBC RBC Plt Count Lymphocytes % (Manual) Seg Neutrophils # Man Lymphocytes # (Manual) PT INR APTT Fibrinogen 727 H Sodium Potassium Chloride Carbon Dioxide BUN Creatinine Glucose POC Glucose 202 H 183 H Lactic Acid Calcium Phosphorus C-Reactive Protein Albumin 04/10/17 04/10/17 04/10/17 13:46 16:45 17:38 WBC RBC Plt Count Lymphocytes % (Manual) Seg Neutrophils # Man Lymphocytes # (Manual) PT INR APTT Fibrinogen Sodium Potassium Chloride Carbon Dioxide BUN Creatinine Glucose POC Glucose 213 H 173 H Lactic Acid Calcium Phosphorus C-Reactive Protein Albumin 2.7 L 04/10/17 04/11/17 04/11/17 23:33 04:00 04:00 WBC 17.9 H RBC 3.26 L Plt Count 93 L Lymphocytes % (Manual) Seg Neutrophils # Man Lymphocytes # (Manual) PT INR APTT Fibrinogen Sodium 146 H Potassium 3.5 L Chloride 111.0 H Carbon Dioxide BUN 30 H Creatinine 1.3 H Glucose 157 H POC Glucose 140 H Lactic Acid Calcium 8.2 L Phosphorus C-Reactive Protein Albumin 04/11/17 04/11/17 04/12/17 05:59 12:02 04:54 WBC RBC Plt Count Lymphocytes % (Manual) Seg Neutrophils # Man Lymphocytes # (Manual) PT INR APTT Fibrinogen Sodium Potassium Chloride Carbon Dioxide BUN Creatinine Glucose POC Glucose 187 H 165 H 130 H Lactic Acid Calcium Phosphorus C-Reactive Protein Albumin 04/12/17 04/12/17 04/12/17 05:14 05:14 05:14 WBC 12.6 H RBC 3.46 L Plt Count 97 L Lymphocytes % (Manual) Seg Neutrophils # Man Lymphocytes # (Manual) PT INR APTT Fibrinogen Sodium 146 H Potassium 3.2 L Chloride 109.8 H Carbon Dioxide BUN 19 H Creatinine Glucose 135 H POC Glucose Lactic Acid Calcium 8.3 L Phosphorus 2.20 L C-Reactive Protein Albumin 04/12/17 04/12/17 04/12/17 13:30 17:18 23:22 WBC RBC Plt Count Lymphocytes % (Manual) Seg Neutrophils # Man Lymphocytes # (Manual) PT INR APTT Fibrinogen Sodium Potassium Chloride Carbon Dioxide BUN Creatinine Glucose POC Glucose 166 H 173 H 248 H Lactic Acid Calcium Phosphorus C-Reactive Protein Albumin 04/13/17 04/13/17 04/13/17 05:38 06:03 06:03 WBC 13.5 H RBC 3.62 L Plt Count 133 L Lymphocytes % (Manual) Seg Neutrophils # Man Lymphocytes # (Manual) PT INR APTT Fibrinogen Sodium Potassium 3.3 L Chloride Carbon Dioxide BUN Creatinine Glucose 202 H POC Glucose 176 H Lactic Acid Calcium Phosphorus C-Reactive Protein Albumin 04/13/17 11:46 WBC RBC Plt Count Lymphocytes % (Manual) Seg Neutrophils # Man Lymphocytes # (Manual) PT INR APTT Fibrinogen Sodium Potassium Chloride Carbon Dioxide BUN Creatinine Glucose POC Glucose 213 H Lactic Acid Calcium Phosphorus C-Reactive Protein Albumin Chest x-ray: report reviewed, image reviewed
[2017-04-13] MEDS ORDERED: SODIUM PHOSPHATE 15 MMOL in NACL 0.9% 250ML 250 ML IV ONE (15:38)
[2017-04-13] MEDS: ZOCOR PO SCH (23:00)
[2017-04-14] MEDS: VANCOMYCIN PO PO SCH ×4 (01:00→18:56)
[2017-04-14 05:11] LABS: Hematocrit 32.1 % (30.3-42.9); Hemoglobin 10.8 gm/dl (10.1-14.3); Mean Corpuscular HGB Conc 34 % (30-34); Mean Corpuscular Hemoglobin 32 pg (28-32); Mean Corpuscular Volume 94 fl (79-97); Platelet Count 163 K/mm3 (140-440); Red Blood Count 3.42 M/mm3 (3.65-5.03); Red Cell Distribution Width 14.7 % (13.2-15.2); White Blood Count 12.1 K/mm3 (4.5-11.0)
[2017-04-14 05:29] LABS: Anion Gap 17 mmol/L; BUN/Creatinine Ratio 14; Blood Urea Nitrogen 11 mg/dL (7-17); Carbon Dioxide 24 mmol/L (22-30); Chloride 105.5 mmol/L (98-107); Glucose 165 mg/dL (65-100); Potassium 3.3 mmol/L (3.6-5.0); Sodium 143 mmol/L (137-145)
[2017-04-14] MEDS: NEURONTIN PO SCH ×3 (06:15→22:31)
[2017-04-14] MEDS: FLAGYL PO SCH ×3 (06:15→22:31)
[2017-04-14] MEDS: NOVOLOG SUB-Q SCH ×4 (06:50→18:51)
[2017-04-14] MEDS: DUONEB *Not for PRN Use IH SCH ×3 (07:37→20:14)
[2017-04-14] MEDS: DILAUDID IV PRN (07:41)
[2017-04-14] MEDS ORDERED: MAGNESIUM SULFATE IV ONE ×2 (10:38→12:56)
--- NOTE | 2017-04-14 10:40 | Progress Note ---
Assessment and Plan Assessment and plan: Patient is a 71-year-old woman from [facility] under the care of Dr. Bryce Carrillo with a history of insulin-dependent diabetes mellitus, hypertension, depression, GERD, peripheral neuropathy, glaucoma, acute [place], coronary artery disease status post CABG and stent, COPD, CHF EF 45% on negative stress test December 2016, CVA with functional quadriplegia, contracted legs, dysphasia and left-sided hemiparesis who presents with "possible aspiration, labored breathing, sats fluctuating" per shelter report. Patient has ams with lethargy. Portable chest x-ray read as mild cardiomegaly, segmental atelectasis left lower lobe versus small left pleural effusion. Urinalysis indicative of urinary tract infection. Patient was found to be hypotensive and a central line was placed, Levophed ordered but not given because blood pressure temporarily responded to IV fluid boluses; however, patient has h/o of chf/cad, EF of 45%. Therefore must be careful with IV hydration. -Septic shock likely due to UTI: * improving, Continue with IV antibiotics Rocephin, IV fluids, follow cultures , ID input noted. Repeat cultures negative x 48 hrs, will place picc line for abx. Culture negative for 72 hrs. -Cdiff: * cONT on PO FLAGYL and vancomycin, D/W ID, patient still needs Rocephin due to complex UTI. Isolation -Gram negative valentino bactermia- ECOLI. * Likely secondary to UTI, Continue abx, Echo- EF 30-35% With diastolic dysfunction and no mention of valvular vegitation. -Acute Cystis with right-sided hydronephrosis and obstructing nephrolithiasis * treatment as noted above, urology consult, renal stent placed. Follow with Urology outpatient -Acute hypoxic respiratory failure * pulmonology input noted, wean oxygen as appropriate, nebulizer treatments. -Atrial flutter with RVR -possible new onset. Cardiology following. STILL WITH TACHYCARDIA. STARTED ON AMIO DRIP PER CARDIOLOGY * lopressor @ 50MG PO bid with holding parameters. Eliquis started with improved plt CAD, s/p PCI and CABG- * NOTED Above, asa, statin -HTN- controlled -DM- with hyperglycemia. * Continue insulin for better control -Thrombocytopenia- * 133 Today, Improved, monitor closely -Acute encephalopathy due to sepsis: Treat above -Acute kidney injury on Chronic kidney disease stage 3. * Resolved following stent placement. Likely secondary to shock syndrome. -Hydronephrosis: s/p Cystoscopy with RPG and stent placement yesterday. -Left adrenal adenoma -follow-up outpatient -Infrarenal abdominal aortic aneurysm- 3.3x3.1cm - follow up outpatient. -PAD Moderate to severe- Vascular consult OUTPATIENT Functional quadriplegia due to CVA with left-sided hemiparesis: * Wound care consult, PT/OT eval and treat -Hyperkalemia- REPLACE -Hypernatermia * Resolved. -Morbid obesity- BMI 38, NUTRITION CONSULT. -Hypomagnesemia: Replace -DVT prophylaxis: Subcutaneous heparin full code Disposition: Continued inpatient care, PLAN DISCUSSED WITH PATIENT IN DETAIL Discharge to SNF placement once Aflutter controlled. History Interval history: Patient seen and examined, Continues to improve. . Hospitalist Physical - Physical exam Narrative exam: VITAL SIGNS: Reviewed. GENERAL: The patient appears in no acute distress, morbidly obese, lethargic. Vital signs as documented. HEAD: No signs of head trauma. EYES: Pupils are equal. Extraocular motions intact. Anicteric EARS: Hearing grossly intact. MOUTH: Oropharynx is normal. NECK: No adenopathy, no JVD. CHEST: Chest with diminished breath sounds bilaterally. No wheezes, rales, or rhonchi. CARDIAC: Irregularly irregular rate and rhythm. S1 and S2, without murmurs, gallops, or rubs. VASCULAR: No Edema. Peripheral pulses normal and equal in all extremities. ABDOMEN: Soft, without detectable tenderness. No sign of distention. No rebound or guarding, and no masses palpated. Bowel Sounds normal. MUSCULOSKELETAL: Good range of motion of all major joints. Extremities without clubbing, cyanosis or edema. NEUROLOGIC EXAM: Alert and oriented x 2. No focal sensory or strength deficits. Speech low pitched, inaudible PSYCHIATRIC: unable to assess. SKIN: Sacral pressure ulcer stage II, left femoral TLC - Constitutional Vitals: Temp Pulse Resp BP Pulse Ox 98.1 F 131 H 24 119/64 98 04/14/17 09:43 04/14/17 09:43 04/14/17 09:43 04/14/17 09:43 04/14/17 09:43 General appearance: Present: no acute distress Results - Labs CBC & Chem 7: 04/15/17 04:49 04/15/17 04:49 Labs: Laboratory Last Values WBC 12.1 K/mm3 (4.5-11.0) H 04/14/17 04:34 RBC 3.42 M/mm3 (3.65-5.03) L 04/14/17 04:34 Hgb 10.8 gm/dl (10.1-14.3) 04/14/17 04:34 Hct 32.1 % (30.3-42.9) 04/14/17 04:34 MCV 94 fl (79-97) 04/14/17 04:34 MCH 32 pg (28-32) 04/14/17 04:34 MCHC 34 % (30-34) 04/14/17 04:34 RDW 14.7 % (13.2-15.2) 04/14/17 04:34 Plt Count 163 K/mm3 (140-440) 04/14/17 04:34 Add Manual Diff Complete 04/09/17 12:39 Total Counted 100 04/09/17 12:39 Seg Neutrophils % [employer] 04/08/17 04:35 Seg Neuts % (Manual) 65.0 % (40.0-70.0) 04/09/17 12:39 Band Neutrophils % 30.0 % 04/09/17 12:39 Lymphocytes % (Manual) 4.0 % (13.4-35.0) L 04/09/17 12:39 Reactive Lymphs % (Man) 0 % 04/09/17 12:39 Monocytes % (Manual) 1.0 % (0.0-7.3) 04/09/17 12:39 Eosinophils % (Manual) 0 % (0.0-4.3) 04/08/17 04:35 Basophils % (Manual) 0 % (0.0-1.8) 04/08/17 04:35 Metamyelocytes % 0 % 04/09/17 12:39 Myelocytes % 0 % 04/09/17 12:39 Promyelocytes % 0 % 04/09/17 12:39 Blast Cells % 0 % 04/09/17 12:39 Nucleated RBC % Not Reportable 04/09/17 12:39 Seg Neutrophils # Man 18.4 K/mm3 (1.8-7.7) H 04/09/17 12:39 Band Neutrophils # 8.5 K/mm3 04/09/17 12:39 Lymphocytes # (Manual) 1.1 K/mm3 (1.2-5.4) L 04/09/17 12:39 Abs React Lymphs (Man) 0.0 K/mm3 04/09/17 12:39 Monocytes # (Manual) 0.3 K/mm3 (0.0-0.8) 04/09/17 12:39 Eosinophils # (Manual) 0.0 K/mm3 (0.0-0.4) 04/09/17 12:39 Basophils # (Manual) 0.0 K/mm3 (0.0-0.1) 04/09/17 12:39 Metamyelocytes # 0.0 K/mm3 04/09/17 12:39 Myelocytes # 0.0 K/mm3 04/09/17 12:39 Promyelocytes # 0.0 K/mm3 04/09/17 12:39 Blast Cells # 0.0 K/mm3 04/09/17 12:39 WBC Morphology Not Reportable 04/09/17 12:39 Hypersegmented Neuts Not Reportable 04/09/17 12:39 Hyposegmented Neuts Not Reportable 04/09/17 12:39 Hypogranular Neuts Not Reportable 04/09/17 12:39 Smudge Cells Not Reportable 04/09/17 12:39 Toxic Granulation Not Reportable 04/09/17 12:39 Toxic Vacuolation Not Reportable 04/09/17 12:39 Dohle Bodies Not Reportable 04/09/17 12:39 Pelger-Huet Anomaly Not Reportable 04/09/17 12:39 Ortiz Rods Not Reportable 04/09/17 12:39 Platelet Estimate Not Reportable 04/09/17 12:39 Clumped Platelets Not Reportable 04/09/17 12:39 Plt Clumps, EDTA Not Reportable 04/09/17 12:39 Large Platelets Not Reportable 04/09/17 12:39 Giant Platelets Not Reportable 04/09/17 12:39 Platelet Satelliting Not Reportable 04/09/17 12:39 Plt Morphology Comment Not Reportable 04/09/17 12:39 RBC Morphology Normal 04/09/17 12:39 Dimorphic RBCs Not Reportable 04/09/17 12:39 Polychromasia Not Reportable 04/09/17 12:39 Hypochromasia Not Reportable 04/09/17 12:39 Poikilocytosis Not Reportable 04/09/17 12:39 Anisocytosis Not Reportable 04/09/17 12:39 Microcytosis Not Reportable 04/09/17 12:39 Macrocytosis Not Reportable 04/09/17 12:39 Spherocytes Not Reportable 04/09/17 12:39 Pappenheimer Bodies Not Reportable 04/09/17 12:39 Sickle Cells Not Reportable 04/09/17 12:39 Target Cells Not Reportable 04/09/17 12:39 Tear Drop Cells Not Reportable 04/09/17 12:39 Ovalocytes Not Reportable 04/09/17 12:39 Helmet Cells Not Reportable 04/09/17 12:39 López-Lengby Bodies Not Reportable 04/09/17 12:39 [place] Rings Not Reportable 04/09/17 12:39 Tali Cells Not Reportable 04/09/17 12:39 Bite Cells Not Reportable 04/09/17 12:39 Crenated Cell Not Reportable 04/09/17 12:39 Elliptocytes Not Reportable 04/09/17 12:39 Acanthocytes (Spur) Not Reportable 04/09/17 12:39 Rouleaux Not Reportable 04/09/17 12:39 Hemoglobin C Crystals Not Reportable 04/09/17 12:39 Schistocytes Not Reportable 04/09/17 12:39 Malaria parasites Not Reportable 04/09/17 12:39 Colton Bodies Not Reportable 04/09/17 12:39 Hem Pathologist Commnt No 04/09/17 12:39 PT 17.7 Sec. (12.2-14.9) H 04/09/17 19:53 INR 1.38 (0.87-1.13) H 04/09/17 19:53 APTT 43.4 Sec. (24.2-36.6) H 04/09/17 19:53 Fibrinogen 727 mg/dl (211-480) H 04/10/17 07:45 POC ABG pH 7.418 (7.35-7.45) 04/08/17 04:26 POC ABG pCO2 27.9 (35-45) L 04/08/17 04:26 POC ABG pO2 75 (80-105) L 04/08/17 04:26 POC ABG HCO3 18.0 04/08/17 04:26 POC ABG Total CO2 19 04/08/17 04:26 POC ABG O2 Sat 96 04/08/17 04:26 POC ABG Base Excess -7 04/08/17 04:26 FiO2 32 % 04/08/17 04:26 Sodium 143 mmol/L (137-145) 04/14/17 04:34 Potassium 3.3 mmol/L (3.6-5.0) L 04/14/17 04:34 Chloride 105.5 mmol/L (98-107) 04/14/17 04:34 Carbon Dioxide 24 mmol/L (22-30) 04/14/17 04:34 Anion Gap 17 mmol/L 04/14/17 04:34 BUN 11 mg/dL (7-17) 04/14/17 04:34 Creatinine 0.8 mg/dL (0.7-1.2) 04/14/17 04:34 Estimated GFR > 60 ml/min 04/14/17 04:34 BUN/Creatinine Ratio 14 % 04/14/17 04:34 Glucose 165 mg/dL (65-100) H 04/14/17 04:34 POC Glucose 172 (70-105) H 04/14/17 06:16 Lactic Acid 1.30 mmol/L (0.7-2.0) 04/10/17 07:45 Calcium 8.0 mg/dL (8.4-10.2) L 04/14/17 04:34 Phosphorus 2.20 mg/dL (2.5-4.5) L 04/12/17 05:14 Magnesium 1.50 mg/dL (1.7-2.3) L 04/14/17 04:34 Total Bilirubin 1.50 mg/dL (0.1-1.2) H 04/08/17 06:55 AST 39 units/L (5-40) 04/08/17 06:55 ALT 20 units/L (7-56) 04/08/17 06:55 Alkaline Phosphatase 167 units/L (35-129) H 04/08/17 06:55 Total Creatine Kinase 284 units/L (30-135) H 04/08/17 04:35 CK-MB (CK-2) 2.2 ng/mL (0.0-4.0) 04/08/17 04:35 CK-MB (CK-2) Rel Index 0.7 (0-4) 04/08/17 04:35 Troponin T 0.034 ng/mL (0.00-0.029) H 04/08/17 04:35 C-Reactive Protein < 0.03 mg/dL (0.00-1.30) 04/12/17 05:14 NT-Pro-B Natriuret Pep 2928 pg/mL (0-900) H 04/08/17 06:36 Total Protein 7.0 g/dL (6.3-8.2) 04/08/17 06:55 Albumin 2.7 g/dL (3.9-5) L 04/10/17 16:45 Albumin/Globulin Ratio 1.3 % 04/08/17 06:55 Triglycerides 120 mg/dL (2-149) 04/08/17 04:35 Cholesterol 118 mg/dL (50-199) 04/08/17 04:35 LDL Cholesterol Direct 56 mg/dL (50-130) 04/08/17 04:35 HDL Cholesterol 38 mg/dL (40-59) L 04/08/17 04:35 Cholesterol/HDL Ratio 3.10 % 04/08/17 04:35 Lipase 9 units/L (13-60) L 04/08/17 04:35 TSH 1.280 mlU/mL (0.270-4.200) 04/09/17 19:56 Free T4 1.32 ng/dL (0.76-1.46) 04/09/17 19:55 Urine Color Yellow (Yellow) 04/08/17 05:08 Urine Turbidity Clear (Clear) 04/08/17 05:08 Urine pH 5.0 (5.0-7.0) 04/08/17 05:08 Ur Specific [place] 1.016 (1.003-1.030) 04/08/17 05:08 Urine Protein 100 mg/dl mg/dL (Negative) 04/08/17 05:08 Urine Glucose (UA) Neg mg/dL (Negative) 04/08/17 05:08 Urine Ketones Neg mg/dL (Negative) 04/08/17 05:08 Urine Blood Mod (Negative) 04/08/17 05:08 Urine Nitrite Pos (Negative) 04/08/17 05:08 Urine Bilirubin Neg (Negative) 04/08/17 05:08 Urine Urobilinogen < 2.0 mg/dL (<2.0) 04/08/17 05:08 Ur Leukocyte Esterase Lg (Negative) 04/08/17 05:08 Urine WBC (Auto) > 182.0 /HPF (0.0-6.0) H 04/08/17 05:08 Urine RBC (Auto) 14.0 /HPF (0.0-6.0) 04/08/17 05:08 U Epithel Cells (Auto) 1.0 /HPF (0-13.0) 04/08/17 05:08 Urine Bacteria (Auto) 4+ /HPF (Negative) 04/08/17 05:08 Urine WBC Clumps 3+ /HPF 04/08/17 05:08 Urine Mucus 1+ /HPF 04/08/17 05:08
[2017-04-14] MEDS ORDERED: K-DUR PO ONE ×2 (11:00→22:00)
[2017-04-14] MEDS ORDERED: MAGNESIUM SULFATE 1 GM in NACL 0.9% 50 ML IV ONE ×2 (11:30→14:00)
[2017-04-14] MEDS: ZESTRIL PO SCH (12:20)
[2017-04-14] MEDS: D5W 1,000 ML IV SCH (12:20)
[2017-04-14] MEDS: ASPIRIN PO SCH (12:22)
[2017-04-14] MEDS: ELIQUIS PO SCH ×2 (12:22→22:30)
[2017-04-14] MEDS: ZOLOFT PO SCH (12:22)
[2017-04-14] MEDS: PROTONIX PO SCH (12:22)
[2017-04-14] MEDS: COLACE PO SCH ×2 (12:23→22:31)
--- NOTE | 2017-04-14 13:28 | Progress Note ---
Assessment and Plan Paroxysmal atrial flutter with RVR CAD, s/p PCI and CABG CMP - EF 30-35%; presumably nonischemic as stress test 12/2016 was negative for ischemia, EF 43% UTI / sepsis / GNR bacteremia / C. DIFF Positive Right hydronephrosis - s/p cysto, rpg, stent (6x 24 with short internal string) ROSA MARIA - improved Acute respiratory failure - improved Lactic acidosis Hypomag - repleted Hypokalemia Thrombocytopenia - improving HTN DM GERD H/o CVA with functional quadriplegia, contracted legs, dysphasia and left-sided hemiparesis rec: pt will start amio iv and cont lopressor and replace mg and k Subjective Date of service: 04/14/17 Principal diagnosis: AFlutter RVR ; sepsis Interval history: pt lying flat and no chest pain Objective Vital Signs Temp Pulse Pulse Pulse Resp Resp Resp 04/14/17 09:43 98.1 F 131 H 24 04/14/17 07:47 125 H 20 04/14/17 07:41 20 04/14/17 07:37 123 H 20 04/14/17 07:06 98.3 F 127 H 24 04/14/17 04:58 116 H 04/14/17 00:58 100 H 04/14/17 00:57 98.6 F 101 H 30 H 04/13/17 20:36 95 H 14 04/13/17 20:30 04/13/17 20:24 92 H 15 04/13/17 20:20 79 04/13/17 19:56 98.5 F 116 H 26 H 04/13/17 17:54 98.9 F 132 H 103 H 04/13/17 14:05 92 H 92 H 16 16 04/13/17 13:58 89 89 18 18 BP Pulse Ox 04/14/17 09:43 119/64 98 04/14/17 07:47 04/14/17 07:41 04/14/17 07:37 100 04/14/17 07:06 117/74 97 04/14/17 04:58 137/81 100 04/14/17 00:58 99 04/14/17 00:57 102/77 99 04/13/17 20:36 04/13/17 20:30 100 04/13/17 20:24 04/13/17 20:20 149/75 04/13/17 19:56 119/75 100 04/13/17 17:54 144/91 100 04/13/17 14:05 04/13/17 13:58 - Physical Examination General: Appears Well HEENT: Positive: PERRL, Normocephaly, Mucus Membranes Moist Neck: Positive: neck supple, trachea midline Cardiac: Positive: Tachycardia Lungs: Positive: clear to auscultation Neuro: Positive: Grossly Intact Abdomen: Positive: Soft. Negative: Tender Skin: Positive: Clear. Negative: Rash Musculoskeletal: No Fluid Collection, No Pain, Normal Range of Motion Extremities: Absent: edema - Labs and Meds CBC 04/14/17 Range/Units 04:34 WBC 12.1 H (4.5-11.0) K/mm3 RBC 3.42 L (3.65-5.03) M/mm3 Hgb 10.8 (10.1-14.3) gm/dl Hct 32.1 (30.3-42.9) % Plt Count 163 (140-440) K/mm3 Comprehensive Metabolic Panel 04/14/17 Range/Units 04:34 Sodium 143 (137-145) mmol/L Potassium 3.3 L (3.6-5.0) mmol/L Chloride 105.5 (98-107) mmol/L Carbon Dioxide 24 (22-30) mmol/L BUN 11 (7-17) mg/dL Creatinine 0.8 (0.7-1.2) mg/dL Glucose 165 H (65-100) mg/dL Calcium 8.0 L (8.4-10.2) mg/dL - Imaging and Cardiology EKG: image reviewed Echo: report reviewed (07/2013: EF 50%, trace MR, trace TR) - Telemetry EKG Rhythm: Atrial Flutter (at 130 2:1)
--- NOTE | 2017-04-14 13:38 | Progress Note ---
Assessment and Plan 1. UTI - pyelonephritis/hydronephrosis 2. Severe sepsis- E.coli 3. ROSA MARIA 4. Acute respiratory failure, hypoxia 5. Lactic acidosis, improved 6. Thrombocytopenia, likely due to sepsis 7. Bacteremia.Completing ABX. Afebrile 8. ICMP 9. C.diff colitis Rec: Complete ABX Monitor platelets IS, monitor Plan of care reviewed w/ patient, she understands/agrees; no family present. Will sign off. Feel free to reconsult if needed. Subjective Date of service: 04/14/17 Principal diagnosis: AFlutter RVR ; sepsis Interval history: No events overnight. No chest complains.No fever Objective Vital Signs - 12hr 04/14/17 04/14/17 04/14/17 04:58 07:06 07:37 Temperature 98.3 F Pulse Rate 116 H 127 H Pulse Rate [ 123 H Anterior Bilateral Throughout] Respiratory 24 Rate Respiratory 20 Rate [Anterior Bilateral Throughout] Blood Pressure 137/81 117/74 O2 Sat by Pulse 100 97 100 Oximetry 04/14/17 04/14/17 04/14/17 07:41 07:47 09:43 Temperature 98.1 F Pulse Rate 131 H Pulse Rate [ 125 H Anterior Bilateral Throughout] Respiratory 20 24 Rate Respiratory 20 Rate [Anterior Bilateral Throughout] Blood Pressure 119/64 O2 Sat by Pulse 98 Oximetry Constitutional: no acute distress, alert Eyes: non-icteric ENT: oropharynx moist Neck: supple, no JVD Effort: normal Ascultation: Bilateral: clear, diminished breath sounds Cardiovascular: regular rate and rhythm Gastrointestinal: normoactive bowel sounds, soft, non-tender, non-distended Integumentary: normal Extremities: no cyanosis, no edema Neurologic: normal mental status, pupils equal and round, other (L sided hemiparesis) Psychiatric: mood appropriate, affect normal CBC and BMP: 04/14/17 04:34 04/14/17 04:34 ABG, PT/INR, D-dimer: ABG POC ABG pH 7.418 (7.35-7.45) 04/08/17 04:26 POC ABG pCO2 27.9 (35-45) L 04/08/17 04:26 POC ABG pO2 75 (80-105) L 04/08/17 04:26 POC ABG HCO3 18.0 04/08/17 04:26 POC ABG Total CO2 19 04/08/17 04:26 POC ABG O2 Sat 96 04/08/17 04:26 PT/INR, D-dimer PT 17.7 Sec. (12.2-14.9) H 04/09/17 19:53 INR 1.38 (0.87-1.13) H 04/09/17 19:53 Abnormal lab findings: Abnormal Labs 04/08/17 04/09/17 04/09/17 08:55 00:03 04:54 WBC RBC Plt Count Lymphocytes % (Manual) Seg Neutrophils # Man Lymphocytes # (Manual) PT INR APTT Fibrinogen Sodium Potassium Chloride Carbon Dioxide BUN Creatinine Glucose POC Glucose 163 H 156 H Lactic Acid 5.70 H* Calcium Phosphorus Magnesium C-Reactive Protein Albumin 04/09/17 04/09/17 04/09/17 07:52 12:39 19:53 WBC 28.3 H RBC 3.54 L Plt Count 80 L Lymphocytes % (Manual) 4.0 L Seg Neutrophils # Man 18.4 H Lymphocytes # (Manual) 1.1 L PT 17.7 H INR 1.38 H APTT 43.4 H Fibrinogen Sodium Potassium Chloride Carbon Dioxide 20 L BUN 30 H Creatinine 1.6 H Glucose 142 H POC Glucose Lactic Acid Calcium 7.8 L Phosphorus Magnesium C-Reactive Protein Albumin 04/09/17 04/09/17 04/10/17 19:53 23:35 04:00 WBC 23.7 H RBC 3.57 L Plt Count 99 L Lymphocytes % (Manual) Seg Neutrophils # Man Lymphocytes # (Manual) PT INR APTT Fibrinogen Sodium Potassium Chloride Carbon Dioxide BUN Creatinine Glucose POC Glucose 219 H Lactic Acid 2.80 H* Calcium Phosphorus Magnesium C-Reactive Protein Albumin 04/10/17 04/10/17 04/10/17 04:00 04:00 05:33 WBC RBC Plt Count Lymphocytes % (Manual) Seg Neutrophils # Man Lymphocytes # (Manual) PT INR APTT Fibrinogen Sodium Potassium Chloride Carbon Dioxide 21 L BUN 30 H Creatinine 1.8 H Glucose 164 H POC Glucose 255 H Lactic Acid Calcium 8.2 L Phosphorus Magnesium C-Reactive Protein 34.00 H Albumin 04/10/17 04/10/17 04/10/17 07:45 11:20 11:58 WBC RBC Plt Count Lymphocytes % (Manual) Seg Neutrophils # Man Lymphocytes # (Manual) PT INR APTT Fibrinogen 727 H Sodium Potassium Chloride Carbon Dioxide BUN Creatinine Glucose POC Glucose 202 H 183 H Lactic Acid Calcium Phosphorus Magnesium C-Reactive Protein Albumin 04/10/17 04/10/17 04/10/17 13:46 16:45 17:38 WBC RBC Plt Count Lymphocytes % (Manual) Seg Neutrophils # Man Lymphocytes # (Manual) PT INR APTT Fibrinogen Sodium Potassium Chloride Carbon Dioxide BUN Creatinine Glucose POC Glucose 213 H 173 H Lactic Acid Calcium Phosphorus Magnesium C-Reactive Protein Albumin 2.7 L 04/10/17 04/11/17 04/11/17 23:33 04:00 04:00 WBC 17.9 H RBC 3.26 L Plt Count 93 L Lymphocytes % (Manual) Seg Neutrophils # Man Lymphocytes # (Manual) PT INR APTT Fibrinogen Sodium 146 H Potassium 3.5 L Chloride 111.0 H Carbon Dioxide BUN 30 H Creatinine 1.3 H Glucose 157 H POC Glucose 140 H Lactic Acid Calcium 8.2 L Phosphorus Magnesium C-Reactive Protein Albumin 04/11/17 04/11/17 04/12/17 05:59 12:02 04:54 WBC RBC Plt Count Lymphocytes % (Manual) Seg Neutrophils # Man Lymphocytes # (Manual) PT INR APTT Fibrinogen Sodium Potassium Chloride Carbon Dioxide BUN Creatinine Glucose POC Glucose 187 H 165 H 130 H Lactic Acid Calcium Phosphorus Magnesium C-Reactive Protein Albumin 04/12/17 04/12/17 04/12/17 05:14 05:14 05:14 WBC 12.6 H RBC 3.46 L Plt Count 97 L Lymphocytes % (Manual) Seg Neutrophils # Man Lymphocytes # (Manual) PT INR APTT Fibrinogen Sodium 146 H Potassium 3.2 L Chloride 109.8 H Carbon Dioxide BUN 19 H Creatinine Glucose 135 H POC Glucose Lactic Acid Calcium 8.3 L Phosphorus 2.20 L Magnesium C-Reactive Protein Albumin 04/12/17 04/12/17 04/12/17 13:30 17:18 23:22 WBC RBC Plt Count Lymphocytes % (Manual) Seg Neutrophils # Man Lymphocytes # (Manual) PT INR APTT Fibrinogen Sodium Potassium Chloride Carbon Dioxide BUN Creatinine Glucose POC Glucose 166 H 173 H 248 H Lactic Acid Calcium Phosphorus Magnesium C-Reactive Protein Albumin 04/13/17 04/13/17 04/13/17 05:38 06:03 06:03 WBC 13.5 H RBC 3.62 L Plt Count 133 L Lymphocytes % (Manual) Seg Neutrophils # Man Lymphocytes # (Manual) PT INR APTT Fibrinogen Sodium Potassium 3.3 L Chloride Carbon Dioxide BUN Creatinine Glucose 202 H POC Glucose 176 H Lactic Acid Calcium Phosphorus Magnesium C-Reactive Protein Albumin 04/13/17 04/14/17 04/14/17 11:46 00:31 04:34 WBC 12.1 H RBC 3.42 L Plt Count Lymphocytes % (Manual) Seg Neutrophils # Man Lymphocytes # (Manual) PT INR APTT Fibrinogen Sodium Potassium Chloride Carbon Dioxide BUN Creatinine Glucose POC Glucose 213 H 164 H Lactic Acid Calcium Phosphorus Magnesium C-Reactive Protein Albumin 04/14/17 04/14/17 04/14/17 04:34 04:34 06:16 WBC RBC Plt Count Lymphocytes % (Manual) Seg Neutrophils # Man Lymphocytes # (Manual) PT INR APTT Fibrinogen Sodium Potassium 3.3 L Chloride Carbon Dioxide BUN Creatinine Glucose 165 H POC Glucose 172 H Lactic Acid Calcium 8.0 L Phosphorus Magnesium 1.50 L C-Reactive Protein Albumin 04/14/17 11:57 WBC RBC Plt Count Lymphocytes % (Manual) Seg Neutrophils # Man Lymphocytes # (Manual) PT INR APTT Fibrinogen Sodium Potassium Chloride Carbon Dioxide BUN Creatinine Glucose POC Glucose 184 H Lactic Acid Calcium Phosphorus Magnesium C-Reactive Protein Albumin
--- NOTE | 2017-04-14 13:44 | Progress Note ---
Assessment and Plan ROSA MARIA: -Likely from ATN from Sepsis with low BP with contribution from hydronephrosis from renal stone. -BP improved now. -Cr improved now after stent on Tuesday 04/10 -Supportive care is in order -Renally dose all meds, avoid nephrotoxic meds Hydronephrosis, Renal stone: -Mild to Moderate on CT with Right UPJ stone. -Urology Dr Smith on board. s/p Cystoscopy with RPG and stent placement 04/10 -Per Urology Dr Smith. Hypernatremia: -Encourage more PO water intake. -Continue D5W at 75 cc/hr. Improving Hypophosphatemia: -Will replace Hypokalemia: -Replace PRN Sepsis/UTI: -Has E.Coli bacteremia -On ABx -ID Dr Shepard on board Hypoxia: -Pulm Dr Serrano on board CAD, Aflutter: -s/p PCI and CABG in the past. -On ASA and statin -Cardiology Dr Samaniego on board. DM: -On insulin -Per primary Serjio Odonnell MD Nephrology, Hypertension, Dialysis, Transplantation Phone no: [phone] Subjective Date of service: 04/14/17 Principal diagnosis: AFlutter RVR ; sepsis Interval history: Denies CP/SHOB. Objective - Exam Narrative Exam: GE: Awake HEENT: PERRLA Neck: No JVD Chest: Coarse BS BL CVS: RRR Abd: Soft/BS+ Ext: No cce Neuro: Left hemiparesis - Vital Signs Vital signs: Vital Signs - 12hr 04/14/17 04/14/17 04/14/17 04:58 07:06 07:37 Temperature 98.3 F Pulse Rate 116 H 127 H Pulse Rate [ 123 H Anterior Bilateral Throughout] Respiratory 24 Rate Respiratory 20 Rate [Anterior Bilateral Throughout] Blood Pressure 137/81 117/74 O2 Sat by Pulse 100 97 100 Oximetry 04/14/17 04/14/17 04/14/17 07:41 07:47 09:43 Temperature 98.1 F Pulse Rate 131 H Pulse Rate [ 125 H Anterior Bilateral Throughout] Respiratory 20 24 Rate Respiratory 20 Rate [Anterior Bilateral Throughout] Blood Pressure 119/64 O2 Sat by Pulse 98 Oximetry - Lab 04/14/17 04:34 04/14/17 04:34 Most recent lab results Calcium 8.0 mg/dL (8.4-10.2) L 04/14/17 04:34 Phosphorus 3.10 mg/dL (2.5-4.5) 04/14/17 04:34 Magnesium 1.50 mg/dL (1.7-2.3) L 04/14/17 04:34
[2017-04-14] MEDS ORDERED: CORDARONE 150 MG in D5W 97 ML IV ONE (13:45)
[2017-04-14] MEDS ORDERED: CORDARONE 900 MG in D5W 482 ML IV SCH (14:00)
[2017-04-14] MEDS: PRED FORTE 1% OU SCH ×3 (14:54→22:31)
[2017-04-14] MEDS: LOPRESSOR PO SCH ×2 (15:27→22:29)
[2017-04-14] MEDS: ROCEPHIN IM SCH (15:28)
[2017-04-14] MEDS: ZOCOR PO SCH (22:31)
[2017-04-15] MEDS: NOVOLOG SUB-Q SCH ×4 (02:35→18:58)
[2017-04-15] MEDS: VANCOMYCIN PO PO SCH ×4 (02:35→18:58)
[2017-04-15 05:29] LABS: Hematocrit 34.5 % (30.3-42.9); Hemoglobin 11.5 gm/dl (10.1-14.3); Mean Corpuscular HGB Conc 33 % (30-34); Mean Corpuscular Hemoglobin 31 pg (28-32); Mean Corpuscular Volume 94 fl (79-97); Platelet Count 229 K/mm3 (140-440); Red Blood Count 3.69 M/mm3 (3.65-5.03); Red Cell Distribution Width 14.8 % (13.2-15.2); White Blood Count 11.9 K/mm3 (4.5-11.0)
[2017-04-15 05:51] LABS: Anion Gap 15 mmol/L; BUN/Creatinine Ratio 10; Blood Urea Nitrogen 8 mg/dL (7-17); Calcium 8.1 mg/dL (8.4-10.2); Carbon Dioxide 26 mmol/L (22-30); Chloride 106.9 mmol/L (98-107); Glucose 161 mg/dL (65-100); Potassium 3.5 mmol/L (3.6-5.0); Sodium 144 mmol/L (137-145)
[2017-04-15] MEDS: NEURONTIN PO SCH ×3 (06:09→22:48)
[2017-04-15] MEDS: FLAGYL PO SCH ×3 (06:09→22:48)
[2017-04-15] MEDS: D5W 1,000 ML IV SCH (06:24)
[2017-04-15 06:48] LABS: Anisocytosis 1+; Basophils % (Manual) 0 % (0.0-1.8); Blastocytes % (Manual) 0 %; Diff Status Complete; Platelet Estimate Consistent w Auto; Polychromasia Rare
[2017-04-15] MEDS: DUONEB *Not for PRN Use IH SCH ×3 (09:19→20:01)
[2017-04-15] MEDS: PRED FORTE 1% OU SCH ×6 (10:00→18:57)
[2017-04-15] MEDS: ASPIRIN PO SCH (11:41)
[2017-04-15] MEDS: ELIQUIS PO SCH ×2 (11:41→22:48)
[2017-04-15] MEDS: ZESTRIL PO SCH (11:42)
[2017-04-15] MEDS: ZOLOFT PO SCH (11:42)
[2017-04-15] MEDS ORDERED: MAGNESIUM SULFATE IV ONE (11:44)
[2017-04-15] MEDS: PROTONIX PO SCH (11:45)
--- NOTE | 2017-04-15 11:46 | Progress Note ---
Assessment and Plan Assessment and plan: Patient is a 71-year-old woman from [facility] under the care of Dr. Bryce Carrillo with a history of insulin-dependent diabetes mellitus, hypertension, depression, GERD, peripheral neuropathy, glaucoma, acute [place], coronary artery disease status post CABG and stent, COPD, CHF EF 45% on negative stress test December 2016, CVA with functional quadriplegia, contracted legs, dysphasia and left-sided hemiparesis who presents with "possible aspiration, labored breathing, sats fluctuating" per jail report. Patient has ams with lethargy. Portable chest x-ray read as mild cardiomegaly, segmental atelectasis left lower lobe versus small left pleural effusion. Urinalysis indicative of urinary tract infection. Patient was found to be hypotensive and a central line was placed, Levophed ordered but not given because blood pressure temporarily responded to IV fluid boluses; however, patient has h/o of chf/cad, EF of 45%. Therefore must be careful with IV hydration. -Septic shock likely due to UTI: * improving, Continue with IV antibiotics Rocephin, IV fluids, follow cultures , ID input noted. Repeat cultures negative x 48 hrs, will place picc line for abx. Culture negative for 72 hrs. -Cdiff: * cONT on PO FLAGYL and vancomycin, D/W ID, patient still needs Rocephin due to complex UTI. Isolation -Gram negative valentino bactermia- ECOLI. * Likely secondary to UTI, Continue abx, Echo- EF 30-35% With diastolic dysfunction and no mention of valvular vegitation. -Acute Cystis with right-sided hydronephrosis and obstructing nephrolithiasis * treatment as noted above, urology consult, renal stent placed. Follow with Urology outpatient -Acute hypoxic respiratory failure * pulmonology input noted, wean oxygen as appropriate, nebulizer treatments. -Atrial flutter with RVR -possible new onset. Cardiology following. STILL WITH TACHYCARDIA. change amiodraone to PO * lopressor @ 50MG PO bid with holding parameters. Eliquis started with improved plt CAD, s/p PCI and CABG- * NOTED Above, asa, statin -HTN- controlled -DM- with hyperglycemia. * Continue insulin for better control -Thrombocytopenia- * 133 Today, Improved, monitor closely -Acute encephalopathy due to sepsis: Treat above -Acute kidney injury on Chronic kidney disease stage 3. * Resolved following stent placement. Likely secondary to shock syndrome. -Hydronephrosis: s/p Cystoscopy with RPG and stent placement yesterday. -Left adrenal adenoma -follow-up outpatient -Infrarenal abdominal aortic aneurysm- 3.3x3.1cm - follow up outpatient. -PAD Moderate to severe- Vascular consult OUTPATIENT Functional quadriplegia due to CVA with left-sided hemiparesis: * Wound care consult, PT/OT eval and treat -Hyperkalemia- REPLACE -Hypernatermia * Resolved. -Morbid obesity- BMI 38, NUTRITION CONSULT. -Hypomagnesemia: Replace -DVT prophylaxis: Subcutaneous heparin full code Disposition: Continued inpatient care, PLAN DISCUSSED WITH PATIENT IN DETAIL Discharge to SNF placement once Aflutter controlled. History Interval history: Patient seen and examined, Continues to improve. . Hospitalist Physical - Physical exam Narrative exam: VITAL SIGNS: Reviewed. GENERAL: The patient appears in no acute distress, morbidly obese, lethargic. Vital signs as documented. HEAD: No signs of head trauma. EYES: Pupils are equal. Extraocular motions intact. Anicteric EARS: Hearing grossly intact. MOUTH: Oropharynx is normal. NECK: No adenopathy, no JVD. CHEST: Chest with diminished breath sounds bilaterally. No wheezes, rales, or rhonchi. CARDIAC: Irregularly irregular rate and rhythm. S1 and S2, without murmurs, gallops, or rubs. VASCULAR: No Edema. Peripheral pulses normal and equal in all extremities. ABDOMEN: Soft, without detectable tenderness. No sign of distention. No rebound or guarding, and no masses palpated. Bowel Sounds normal. MUSCULOSKELETAL: Good range of motion of all major joints. Extremities without clubbing, cyanosis or edema. NEUROLOGIC EXAM: Alert and oriented x 2. No focal sensory or strength deficits. Speech low pitched, inaudible PSYCHIATRIC: unable to assess. SKIN: Sacral pressure ulcer stage II, left femoral TLC - Constitutional Vitals: Temp Pulse Resp BP Pulse Ox 97.6 F 112 H 24 109/68 100 04/14/17 23:19 04/15/17 09:28 04/15/17 09:28 04/14/17 23:19 04/15/17 09:15 General appearance: Present: no acute distress Results - Labs CBC & Chem 7: 04/15/17 04:49 10/08/17 04:49 Labs: Laboratory Last Values WBC 11.9 K/mm3 (4.5-11.0) H 04/15/17 04:49 RBC 3.69 M/mm3 (3.65-5.03) 04/15/17 04:49 Hgb 11.5 gm/dl (10.1-14.3) 04/15/17 04:49 Hct 34.5 % (30.3-42.9) 04/15/17 04:49 MCV 94 fl (79-97) 04/15/17 04:49 MCH 31 pg (28-32) 04/15/17 04:49 MCHC 33 % (30-34) 04/15/17 04:49 RDW 14.8 % (13.2-15.2) 04/15/17 04:49 Plt Count 229 K/mm3 (140-440) 04/15/17 04:49 Add Manual Diff Complete 04/15/17 04:49 Total Counted 100 04/15/17 04:49 Seg Neutrophils % [employer] 04/08/17 04:35 Seg Neuts % (Manual) 70.0 % (40.0-70.0) 04/15/17 04:49 Band Neutrophils % 3.0 % 04/15/17 04:49 Lymphocytes % (Manual) 15.0 % (13.4-35.0) 04/15/17 04:49 Reactive Lymphs % (Man) 0 % 04/15/17 04:49 Monocytes % (Manual) 9.0 % (0.0-7.3) H 04/15/17 04:49 Eosinophils % (Manual) 3.0 % (0.0-4.3) 04/15/17 04:49 Basophils % (Manual) 0 % (0.0-1.8) 04/15/17 04:49 Metamyelocytes % 0 % 04/15/17 04:49 Myelocytes % 0 % 04/15/17 04:49 Promyelocytes % 0 % 04/15/17 04:49 Blast Cells % 0 % 04/15/17 04:49 Nucleated RBC % Not Reportable 04/15/17 04:49 Seg Neutrophils # Man 8.3 K/mm3 (1.8-7.7) H 04/15/17 04:49 Band Neutrophils # 0.4 K/mm3 04/15/17 04:49 Lymphocytes # (Manual) 1.8 K/mm3 (1.2-5.4) 04/15/17 04:49 Abs React Lymphs (Man) 0.0 K/mm3 04/15/17 04:49 Monocytes # (Manual) 1.1 K/mm3 (0.0-0.8) H 04/15/17 04:49 Eosinophils # (Manual) 0.4 K/mm3 (0.0-0.4) 04/15/17 04:49 Basophils # (Manual) 0.0 K/mm3 (0.0-0.1) 04/15/17 04:49 Metamyelocytes # 0.0 K/mm3 04/15/17 04:49 Myelocytes # 0.0 K/mm3 04/15/17 04:49 Promyelocytes # 0.0 K/mm3 04/15/17 04:49 Blast Cells # 0.0 K/mm3 04/15/17 04:49 WBC Morphology Not Reportable 04/15/17 04:49 Hypersegmented Neuts Not Reportable 04/15/17 04:49 Hyposegmented Neuts Not Reportable 04/15/17 04:49 Hypogranular Neuts Not Reportable 04/15/17 04:49 Smudge Cells Not Reportable 04/15/17 04:49 Toxic Granulation Not Reportable 04/15/17 04:49 Toxic Vacuolation Not Reportable 04/15/17 04:49 Dohle Bodies Not Reportable 04/15/17 04:49 Pelger-Huet Anomaly Not Reportable 04/15/17 04:49 Ortiz Rods Not Reportable 04/15/17 04:49 Platelet Estimate Consistent w auto 04/15/17 04:49 Clumped Platelets Not Reportable 04/15/17 04:49 Plt Clumps, EDTA Not Reportable 04/15/17 04:49 Large Platelets Not Reportable 04/15/17 04:49 Giant Platelets Not Reportable 04/15/17 04:49 Platelet Satelliting Not Reportable 04/15/17 04:49 Plt Morphology Comment Not Reportable 04/15/17 04:49 RBC Morphology Not Reportable 04/15/17 04:49 Dimorphic RBCs Not Reportable 04/15/17 04:49 Polychromasia Rare 04/15/17 04:49 Hypochromasia Not Reportable 04/15/17 04:49 Poikilocytosis Not Reportable 04/15/17 04:49 Anisocytosis 1+ 04/15/17 04:49 Microcytosis Not Reportable 04/15/17 04:49 Macrocytosis Not Reportable 04/15/17 04:49 Spherocytes Not Reportable 04/15/17 04:49 Pappenheimer Bodies Not Reportable 04/15/17 04:49 Sickle Cells Not Reportable 04/15/17 04:49 Target Cells Not Reportable 04/15/17 04:49 Tear Drop Cells Not Reportable 04/15/17 04:49 Ovalocytes Not Reportable 04/15/17 04:49 Helmet Cells Not Reportable 04/15/17 04:49 [place] Bodies Not Reportable 04/15/17 04:49 Cascade Rings Not Reportable 04/15/17 04:49 Tali Cells Not Reportable 04/15/17 04:49 Bite Cells Not Reportable 04/15/17 04:49 Crenated Cell Not Reportable 04/15/17 04:49 Elliptocytes Not Reportable 04/15/17 04:49 Acanthocytes (Spur) Not Reportable 04/15/17 04:49 Rouleaux Not Reportable 04/15/17 04:49 Hemoglobin C Crystals Not Reportable 04/15/17 04:49 Schistocytes Not Reportable 04/15/17 04:49 Malaria parasites Not Reportable 04/15/17 04:49 [place] Bodies Not Reportable 04/15/17 04:49 Hem Pathologist Commnt No 04/15/17 04:49 PT 17.7 Sec. (12.2-14.9) H 04/09/17 19:53 INR 1.38 (0.87-1.13) H 04/09/17 19:53 APTT 43.4 Sec. (24.2-36.6) H 04/09/17 19:53 Fibrinogen 727 mg/dl (211-480) H 04/10/17 07:45 POC ABG pH 7.418 (7.35-7.45) 04/08/17 04:26 POC ABG pCO2 27.9 (35-45) L 04/08/17 04:26 POC ABG pO2 75 (80-105) L 04/08/17 04:26 POC ABG HCO3 18.0 04/08/17 04:26 POC ABG Total CO2 19 04/08/17 04:26 POC ABG O2 Sat 96 04/08/17 04:26 POC ABG Base Excess -7 04/08/17 04:26 FiO2 32 % 04/08/17 04:26 Sodium 144 mmol/L (137-145) 04/15/17 04:49 Potassium 3.5 mmol/L (3.6-5.0) L 04/15/17 04:49 Chloride 106.9 mmol/L (98-107) 04/15/17 04:49 Carbon Dioxide 26 mmol/L (22-30) 04/15/17 04:49 Anion Gap 15 mmol/L 04/15/17 04:49 BUN 8 mg/dL (7-17) 04/15/17 04:49 Creatinine 0.8 mg/dL (0.7-1.2) 04/15/17 04:49 Estimated GFR > 60 ml/min 04/15/17 04:49 BUN/Creatinine Ratio 10 % 04/15/17 04:49 Glucose 161 mg/dL (65-100) H 04/15/17 04:49 POC Glucose 150 (70-105) H 04/15/17 06:23 Lactic Acid 1.30 mmol/L (0.7-2.0) 04/10/17 07:45 Calcium 8.1 mg/dL (8.4-10.2) L 04/15/17 04:49 Phosphorus 3.10 mg/dL (2.5-4.5) 04/14/17 04:34 Magnesium 1.80 mg/dL (1.7-2.3) 04/15/17 04:49 Total Bilirubin 1.50 mg/dL (0.1-1.2) H 04/08/17 06:55 AST 39 units/L (5-40) 04/08/17 06:55 ALT 20 units/L (7-56) 04/08/17 06:55 Alkaline Phosphatase 167 units/L (35-129) H 04/08/17 06:55 Total Creatine Kinase 284 units/L (30-135) H 04/08/17 04:35 CK-MB (CK-2) 2.2 ng/mL (0.0-4.0) 04/08/17 04:35 CK-MB (CK-2) Rel Index 0.7 (0-4) 04/08/17 04:35 Troponin T 0.034 ng/mL (0.00-0.029) H 04/08/17 04:35 C-Reactive Protein < 0.03 mg/dL (0.00-1.30) 04/12/17 05:14 NT-Pro-B Natriuret Pep 2928 pg/mL (0-900) H 04/08/17 06:36 Total Protein 7.0 g/dL (6.3-8.2) 04/08/17 06:55 Albumin 2.7 g/dL (3.9-5) L 04/10/17 16:45 Albumin/Globulin Ratio 1.3 % 04/08/17 06:55 Triglycerides 120 mg/dL (2-149) 04/08/17 04:35 Cholesterol 118 mg/dL (50-199) 04/08/17 04:35 LDL Cholesterol Direct 56 mg/dL (50-130) 04/08/17 04:35 HDL Cholesterol 38 mg/dL (40-59) L 04/08/17 04:35 Cholesterol/HDL Ratio 3.10 % 04/08/17 04:35 Lipase 9 units/L (13-60) L 04/08/17 04:35 TSH 1.280 mlU/mL (0.270-4.200) 04/09/17 19:56 Free T4 1.32 ng/dL (0.76-1.46) 04/09/17 19:55 Urine Color Yellow (Yellow) 04/08/17 05:08 Urine Turbidity Clear (Clear) 04/08/17 05:08 Urine pH 5.0 (5.0-7.0) 04/08/17 05:08 Ur Specific [place] 1.016 (1.003-1.030) 04/08/17 05:08 Urine Protein 100 mg/dl mg/dL (Negative) 04/08/17 05:08 Urine Glucose (UA) Neg mg/dL (Negative) 04/08/17 05:08 Urine Ketones Neg mg/dL (Negative) 04/08/17 05:08 Urine Blood Mod (Negative) 04/08/17 05:08 Urine Nitrite Pos (Negative) 04/08/17 05:08 Urine Bilirubin Neg (Negative) 04/08/17 05:08 Urine Urobilinogen < 2.0 mg/dL (<2.0) 04/08/17 05:08 Ur Leukocyte Esterase Lg (Negative) 04/08/17 05:08 Urine WBC (Auto) > 182.0 /HPF (0.0-6.0) H 04/08/17 05:08 Urine RBC (Auto) 14.0 /HPF (0.0-6.0) 04/08/17 05:08 U Epithel Cells (Auto) 1.0 /HPF (0-13.0) 04/08/17 05:08 Urine Bacteria (Auto) 4+ /HPF (Negative) 04/08/17 05:08 Urine WBC Clumps 3+ /HPF 04/08/17 05:08 Urine Mucus 1+ /HPF 04/08/17 05:08
[2017-04-15] MEDS: LOPRESSOR PO SCH ×3 (12:00→22:49)
[2017-04-15] MEDS ORDERED: K-DUR PO ONE (12:00)
[2017-04-15] MEDS: COLACE PO SCH ×2 (12:38→22:47)
--- NOTE | 2017-04-15 12:47 | Progress Note ---
Assessment and Plan Paroxysmal atrial flutter with RVR CAD, s/p PCI and CABG CMP - EF 30-35%; presumably nonischemic as stress test 12/2016 was negative for ischemia, EF 43% UTI / sepsis / GNR bacteremia / C. DIFF Positive Right hydronephrosis - s/p cysto, rpg, stent (6x 24 with short internal string) ROSA MARIA - improved Acute respiratory failure - improved Lactic acidosis Hypomag - repleted Hypokalemia Thrombocytopenia - improving HTN DM GERD H/o CVA with functional quadriplegia, contracted legs, dysphasia and left-sided hemiparesis rec: change to po amio in am and cont lopressor and lasix Subjective Date of service: 04/15/17 Principal diagnosis: AFlutter RVR ; sepsis Interval history: pt has sob , stable Objective Vital Signs Temp Pulse Pulse Pulse Resp Resp Resp 04/15/17 11:42 109 H 04/15/17 09:28 112 H 24 04/15/17 09:15 114 H 24 04/14/17 23:19 97.6 F 115 H 20 04/14/17 22:29 109 H 04/14/17 22:00 105 H 20 20 04/14/17 20:30 98.4 F 109 H 22 04/14/17 20:25 114 H 20 04/14/17 20:14 110 H 20 04/14/17 19:44 110 H 04/14/17 18:48 98.4 F 108 H 24 04/14/17 13:49 97.3 F L 131 H 24 04/14/17 13:48 131 H 20 04/14/17 13:38 127 H 20 BP Pulse Ox 04/15/17 11:42 04/15/17 09:28 04/15/17 09:15 100 04/14/17 23:19 109/68 95 04/14/17 22:29 101/73 04/14/17 22:00 04/14/17 20:30 101/73 97 04/14/17 20:25 04/14/17 20:14 100 04/14/17 19:44 04/14/17 18:48 119/75 97 04/14/17 13:49 129/74 98 04/14/17 13:48 04/14/17 13:38 - Physical Examination General: Appears Well HEENT: Positive: PERRL, Normocephaly, Mucus Membranes Moist Neck: Positive: neck supple, trachea midline Cardiac: Positive: Irregularly Regular Lungs: Positive: clear to auscultation Neuro: Positive: Grossly Intact Abdomen: Positive: Soft. Negative: Tender Skin: Positive: Clear. Negative: Rash Musculoskeletal: No Fluid Collection, No Pain, Normal Range of Motion Extremities: Absent: edema - Labs and Meds CBC 04/15/17 Range/Units 04:49 WBC 11.9 H (4.5-11.0) K/mm3 RBC 3.69 (3.65-5.03) M/mm3 Hgb 11.5 (10.1-14.3) gm/dl Hct 34.5 (30.3-42.9) % Plt Count 229 (140-440) K/mm3 Comprehensive Metabolic Panel 04/15/17 Range/Units 04:49 Sodium 144 (137-145) mmol/L Potassium 3.5 L (3.6-5.0) mmol/L Chloride 106.9 (98-107) mmol/L Carbon Dioxide 26 (22-30) mmol/L BUN 8 (7-17) mg/dL Creatinine 0.8 (0.7-1.2) mg/dL Glucose 161 H (65-100) mg/dL Calcium 8.1 L (8.4-10.2) mg/dL - Imaging and Cardiology EKG: image reviewed Echo: report reviewed (07/2013: EF 50%, trace MR, trace TR) - Telemetry EKG Rhythm: Atrial Flutter (at 110 2:1)
[2017-04-15] MEDS ORDERED: MAGNESIUM SULFATE 1 GM in NACL 0.9% 50 ML IV ONE (13:00)
--- NOTE | 2017-04-15 13:27 | Progress Note ---
Assessment and Plan ROSA MARIA: -Likely from ATN from Sepsis with low BP with contribution from hydronephrosis from renal stone. -BP improved now. -Cr improved now after stent on Tuesday 04/10 -Supportive care is in order -Renally dose all meds, avoid nephrotoxic meds Hydronephrosis, Renal stone: -Mild to Moderate on CT with Right UPJ stone. -Urology Dr Smith on board. s/p Cystoscopy with RPG and stent placement 04/10 -Per Urology Dr Smith. Hypernatremia: -Encourage more PO water intake. -Continue D5W at 75 cc/hr. Hypophosphatemia: -Replace PRN. Improved. Hypokalemia: -Replace PRN Sepsis/UTI: -Has E.Coli bacteremia -On ABx -ID Dr Shepard on board Hypoxia: -Pulm Dr Serrano on board CAD, Aflutter: -s/p PCI and CABG in the past. -On ASA and statin -Cardiology Dr Samaniego on board. DM: -On insulin -Per primary Serjio Odonnell MD Nephrology, Hypertension, Dialysis, Transplantation Phone no: [phone] Subjective Date of service: 04/15/17 Principal diagnosis: AFlutter RVR ; sepsis Interval history: Denies CP/SHOB. Objective - Exam Narrative Exam: GE: Awake HEENT: PERRLA Neck: No JVD Chest: Coarse BS BL CVS: RRR Abd: Soft/BS+ Ext: No cce Neuro: Left hemiparesis - Vital Signs Vital signs: Vital Signs - 12hr 04/15/17 04/15/17 04/15/17 09:15 09:28 11:42 Pulse Rate 109 H Pulse Rate [ 114 H 112 H Anterior Bilateral Throughout] Respiratory 24 24 Rate [Anterior Bilateral Throughout] O2 Sat by Pulse 100 Oximetry 04/15/17 12:00 Pulse Rate 116 H Pulse Rate [ Anterior Bilateral Throughout] Respiratory Rate [Anterior Bilateral Throughout] O2 Sat by Pulse Oximetry - Lab 04/15/17 04:49 04/15/17 04:49 Most recent lab results Calcium 8.1 mg/dL (8.4-10.2) L 04/15/17 04:49 Phosphorus 3.10 mg/dL (2.5-4.5) 04/14/17 04:34 Magnesium 1.80 mg/dL (1.7-2.3) 04/15/17 04:49
[2017-04-15] MEDS: ROCEPHIN IM SCH (15:01)
[2017-04-15] MEDS: ZOCOR PO SCH (22:48)
[2017-04-15] MEDS: CORDARONE PO SCH (22:49)
[2017-04-16] MEDS: NOVOLOG SUB-Q SCH ×3 (00:05→13:06)
[2017-04-16] MEDS: PRED FORTE 1% OU SCH ×2 (00:06→13:05)
[2017-04-16] MEDS: VANCOMYCIN PO PO SCH ×3 (01:02→13:07)
[2017-04-16] MEDS: NEURONTIN PO SCH ×2 (05:55→13:07)
[2017-04-16] MEDS: FLAGYL PO SCH ×2 (05:55→13:07)
[2017-04-16] MEDS: D5W 1,000 ML IV SCH (06:03)
[2017-04-16] MEDS: DILAUDID IV PRN (06:55)
[2017-04-16] MEDS: DUONEB *Not for PRN Use IH SCH ×2 (08:14→13:47)
--- NOTE | 2017-04-16 08:52 | Discharge Summary ---
Providers - Providers Date of Admission: 04/08/17 08:23 Attending physician: KRISH ESTEVEZ MD 04/08/17 11:27 Consult to Physician [CONS] Routine Consulting Provider: MAEGAN MENARD Reason For Exam: critical care, hypotensive, EF 45% Place consult to:: Greg CHILDERS Notified:: y If yes, spoke with:: A/S 04/08/17 11:53 Consult to Wound/ET Nurse [CONS] Routine Reason For Exam: wound eval 04/09/17 12:10 Consult to Physician [CONS] Routine Consulting Provider: MICHELLE TELLEZ Reason For Exam: AFlutter RVR Place consult to:: maria r Notified:: yes Was contact made?: Yes If yes, spoke with:: Maria R Time called:: 07:34 Comment:: saw pt yesterday 04/10/17 07:40 Consult to Physician [CONS] Routine Consulting Provider: NEERU ALMENDAREZ Reason For Exam: severe sepsis Place consult to:: Devyn Notified:: Devyn Was contact made?: Yes If yes, spoke with:: Devyn Comment:: Dr. Estevez notified Dr. Shepard 04/10/17 07:52 Consult to Physician [CONS] Routine Consulting Provider: FABIENNE SU Reason For Exam: rosa maria Place consult to:: Blas Notified:: Blas Phone number called:: [phone] Was contact made?: Yes If yes, spoke with:: Blas Time called:: 09:37 04/10/17 08:52 Consult to Physician [CONS] Routine Consulting Provider: UNIQUE SMITH Reason For Exam: right obstructing upj stone Place consult to:: Sarah Notified:: Sarah Was contact made?: Yes If yes, spoke with:: Sarah Comment:: Dr. Estevez notified Dr. 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 Please fax results to [phone] and call [phone] for critical lab results. Neeru Shepard Date: 04/12/17 04/15/17 11:46 Consult to PICC Line RN [CONS] Routine Reason For Exam: 2 WEEKS ABX Type Line:: PICC 04/16/17 08:50 Consult to Case Management [CONS] Routine Services Needed at Discharge: Other Additional Physician Instructions: ltac today Primary care physician: [facility] Hospitalization Condition: Stable Hospital course: Patient is a 71-year-old woman from [facility] under the care of Dr. Bryce Carrillo with a history of insulin-dependent diabetes mellitus, hypertension, depression, GERD, peripheral neuropathy, glaucoma, acute VT, coronary artery disease status post CABG and stent, COPD, CHF EF 45% on negative stress test December 2016, CVA with functional quadriplegia, contracted legs, dysphasia and left-sided hemiparesis who presents with "possible aspiration, labored breathing, sats fluctuating" per snf report. Patient has ams with lethargy. Portable chest x-ray read as mild cardiomegaly, segmental atelectasis left lower lobe versus small left pleural effusion. Urinalysis indicative of urinary tract infection. Patient was found to be hypotensive and a central line was placed, Levophed ordered but not given because blood pressure temporarily responded to IV fluid boluses; however, patient has h/o of chf/cad, EF of 45%. Therefore must be careful with IV hydration. -Septic shock likely due to UTI: * improving, Continue with IV antibiotics Rocephin, IV fluids, follow cultures , ID input noted. Repeat cultures negative x 48 hrs, will place picc line for abx. Culture negative for 72 hrs. -Cdiff: * cONT on PO FLAGYL and vancomycin, D/W ID, patient still needs Rocephin due to complex UTI. Isolation -Gram negative valentino bactermia- ECOLI. * Likely secondary to UTI, Continue abx, Echo- EF 30-35% With diastolic dysfunction and no mention of valvular vegitation. -Acute Cystis with right-sided hydronephrosis and obstructing nephrolithiasis * treatment as noted above, urology consult, renal stent placed. Follow with Urology outpatient -Acute hypoxic respiratory failure * pulmonology input noted, wean oxygen as appropriate, nebulizer treatments. -Atrial flutter with RVR -possible new onset. Cardiology following. STILL WITH TACHYCARDIA. change amiodraone to PO * lopressor @ 50MG PO bid with holding parameters. Eliquis started with improved plt CAD, s/p PCI and CABG- * NOTED Above, asa, statin -HTN- controlled -DM- with hyperglycemia. * Continue insulin for better control -Thrombocytopenia- * 133 Today, Improved, monitor closely -Acute encephalopathy due to sepsis: Treat above -Acute kidney injury on Chronic kidney disease stage 3. * Resolved following stent placement. Likely secondary to shock syndrome. -Hydronephrosis: s/p Cystoscopy with RPG and stent placement yesterday. -Left adrenal adenoma -follow-up outpatient -Infrarenal abdominal aortic aneurysm- 3.3x3.1cm - follow up outpatient. -PAD Moderate to severe- Vascular consult OUTPATIENT Functional quadriplegia due to CVA with left-sided hemiparesis: * Wound care consult, PT/OT eval and treat -Hyperkalemia- REPLACE -Hypernatermia * Resolved. -Morbid obesity- BMI 38, NUTRITION CONSULT. -Hypomagnesemia: Replace -DVT prophylaxis: Subcutaneous heparin full code Disposition: Continued inpatient care, PLAN DISCUSSED WITH PATIENT IN DETAIL Discharge to SNF placement once Aflutter controlled. -CT of the abdomen showed a obstruction of the right UPJ stone with mild to moderate right hydronephrosis, mild right perinephric stranding, AAA and bladder stones. -Urine cx - E coli -S/P cysto, rpg, stent on 04/10 -CRP=34 3) E coli septicemia: from UTI 6) ROSA MARIA on CKD 7) CAD s/p VT/stents 8) Diabetes mellitus, 9) History of CVA with functional quadriplegia 10) Acute C diff colitis -in view of MDR E coli septicemia, upon discharge will have to continue ceftriaxone 1 g IV qday total 14 days from 10/3 until 04/24 and will continue vancomycin PO 125 mg PO QID until 05/01 ( a week after IV ceftriaxone stop). Orders sent to case filler Disposition: DC/TX-63 MEDICARE CERT LTCH Exam - Constitutional Vitals: Temp Pulse Resp BP Pulse Ox 99.3 F 110 H 18 95/65 100 04/16/17 04:15 04/16/17 04:15 04/16/17 06:55 04/16/17 04:15 04/16/17 04:15 Plan Activity: advance as tolerated, fall precautions Diet: diabetic Special Instructions: record daily weights, record daily BP diary, record blood sugar diary Follow up with: PRIMARY CARE, [Primary Care Provider] - 3-5 Days ARAM DAILEY MD [Staff Physician] - 7 Days Prescriptions: Amiodarone [Cordarone 200 MG TAB] 200 mg PO BID #30 tablet Apixaban [Eliquis] 5 mg PO Q12HR #30 tablet cefTRIAXone [Rocephin] 1 gm IM Q24HR 8 Days Furosemide [Lasix TAB] 20 mg PO QDAY #30 tablet Lisinopril [Zestril TAB] 2.5 mg PO QDAY #60 tablet Metoprolol [Lopressor TAB] 50 mg PO TID #90 tablet Percocet 5/325 mg 1 tab PO Q12H PRN #7 PRN Reason: Pain Vancomycin Po 250 mg PO Q6HR 14 Days
[2017-04-16] MEDS ORDERED: LASIX PO SCH (10:00)
--- NOTE | 2017-04-16 12:19 | Progress Note ---
Assessment and Plan Assessment: Paroxysmal atrial flutter with RVR - with rate dependent RBBB CAD, s/p PCI and CABG CMP - EF 30-35%; presumably nonischemic as stress test 12/2016 was negative for ischemia, EF 43% UTI / sepsis / GNR bacteremia / C. DIFF Positive Right hydronephrosis - s/p cysto, rpg, stent (6x 24 with short internal string) ROSA MARIA - improved Acute respiratory failure - improved Lactic acidosis Hypomag - repleted Hypokalemia Thrombocytopenia - improving HTN DM GERD H/o CVA with functional quadriplegia, contracted legs, dysphasia and left-sided hemiparesis Plan: Give Lopressor. Hold for HR <60 and/or SBP <100. Pending pt tolerates lopressor and HR improves, may d/c home this afternoon. Recommend follow up in our office with Karla Miguel NP, within 1-2 weeks of hospital discharge ([phone]). The patient has been seen in conjunction with Dr. Johnson who agrees with the assessment and plan of care. Subjective Date of service: 04/16/17 Principal diagnosis: AFlutter RVR ; sepsis Interval history: Pt resting in bed, no cardiac complaints. In ST on tele with no arrhythmia overnight. BPs remain borderline hypotensive - lopressor was not given yesterday evening. Objective Last Vital Signs Temp 97.4 F L 04/16/17 09:15 Pulse 114 H 04/16/17 10:00 Resp 20 04/16/17 10:00 BP 107/72 04/16/17 09:15 Pulse Ox 98 04/16/17 10:00 - Physical Examination General: Appears Well HEENT: Positive: PERRL, Normocephaly, Mucus Membranes Moist Neck: Positive: neck supple, trachea midline Cardiac: Positive: Regular Rhythm, S1/S2, Tachycardia Lungs: Positive: clear to auscultation Neuro: Positive: Grossly Intact Abdomen: Positive: Soft. Negative: Tender Skin: Positive: Clear. Negative: Rash Musculoskeletal: No Fluid Collection, No Pain, Normal Range of Motion Extremities: Absent: edema - Imaging and Cardiology EKG: image reviewed Echo: report reviewed (07/2013: EF 50%, trace MR, trace TR)
[2017-04-16] MEDS: ROCEPHIN IM SCH (13:00)
[2017-04-16] MEDS: ASPIRIN PO SCH (13:02)
[2017-04-16] MEDS: LOPRESSOR PO SCH (13:02)
[2017-04-16] MEDS: ELIQUIS PO SCH (13:03)
[2017-04-16] MEDS: COLACE PO SCH (13:03)
[2017-04-16] MEDS: CORDARONE PO SCH (13:03)
[2017-04-16] MEDS: PROTONIX PO SCH (13:05)
[2017-04-16] MEDS: ZESTRIL PO SCH (13:05)
[2017-04-16] MEDS: ZOLOFT PO SCH (13:06)
[2017-04-16 13:25] VITALS: BP 104/71
--- NOTE | 2017-04-16 14:13 | Progress Note ---
Assessment and Plan ROSA MARIA, Possible ATN/Hydronephrosis: -Likely from ATN from Sepsis with low BP with contribution from hydronephrosis from renal stone. -BP improved now. -Cr improved now after stent on Tuesday 04/10 -Supportive care is in order -Renally dose all meds, avoid nephrotoxic meds Hydronephrosis, Renal stone: -Mild to Moderate on CT with Right UPJ stone. -Urology Dr Smith on board. s/p Cystoscopy with RPG and stent placement 04/10 -Per Urology Dr Smith. Hypernatremia, Hypertonic: -Encourage more PO water intake. -Improved. Hypophosphatemia: -Replace PRN. Improved. Hypokalemia: -Replace PRN Sepsis/UTI: -Has E.Coli bacteremia -On ABx -ID Dr Shepard on board Hypoxia: -Pulm Dr Serrano on board CAD, Aflutter: -s/p PCI and CABG in the past. -On ASA and statin -Cardiology Dr Samaniego on board. DM2: -On insulin -Per primary Serjio Odonnell MD Nephrology, Hypertension, Dialysis, Transplantation Phone no: [phone] Subjective Date of service: 04/16/17 Principal diagnosis: AFlutter RVR ; sepsis Interval history: Denies CP/SHOB. Objective - Exam Narrative Exam: GE: Awake HEENT: PERRLA Neck: No JVD Chest: Coarse BS BL CVS: RRR Abd: Soft/BS+ Ext: No cce Neuro: Left hemiparesis - Vital Signs Vital signs: Vital Signs - 12hr 04/16/17 04/16/17 04/16/17 04:15 06:55 08:14 Temperature 99.3 F Pulse Rate 110 H Pulse Rate [ 112 H Anterior Bilateral Throughout] Pulse Rate [ Right Radial] Respiratory 20 18 Rate Respiratory 18 Rate [Anterior Bilateral Throughout] Respiratory Rate [Left Generalized] Blood Pressure Blood Pressure 95/65 [Left] O2 Sat by Pulse 100 99 Oximetry 04/16/17 04/16/17 04/16/17 08:25 09:15 10:00 Temperature 97.4 F L Pulse Rate 114 H Pulse Rate [ 117 H Anterior Bilateral Throughout] Pulse Rate [ 114 H Right Radial] Respiratory 18 20 Rate Respiratory 20 Rate [Anterior Bilateral Throughout] Respiratory 20 Rate [Left Generalized] Blood Pressure 107/72 Blood Pressure [Left] O2 Sat by Pulse 98 Oximetry 04/16/17 04/16/17 12:00 12:06 Temperature 98.5 F Pulse Rate 70 120 H Pulse Rate [ Anterior Bilateral Throughout] Pulse Rate [ Right Radial] Respiratory Rate Respiratory Rate [Anterior Bilateral Throughout] Respiratory Rate [Left Generalized] Blood Pressure Blood Pressure 104/71 [Left] O2 Sat by Pulse 100 Oximetry - Lab 04/15/17 04:49 04/15/17 04:49 Most recent lab results Calcium 8.1 mg/dL (8.4-10.2) L 04/15/17 04:49 Phosphorus 3.10 mg/dL (2.5-4.5) 04/14/17 04:34 Magnesium 1.80 mg/dL (1.7-2.3) 04/15/17 04:49
[2017-04-16 14:30] LABS: Anion Gap 13 mmol/L; BUN/Creatinine Ratio 9; Blood Urea Nitrogen 7 mg/dL (7-17); Calcium 8.4 mg/dL (8.4-10.2); Carbon Dioxide 28 mmol/L (22-30); Chloride 102.3 mmol/L (98-107); Glucose 159 mg/dL (65-100); Potassium 3.5 mmol/L (3.6-5.0); Sodium 140 mmol/L (137-145)
== END 2017-04-16 14:39 | DRG 871 ==
LOC: ED 04:05 → CC1 08:23 → 4A 04-11 13:53
PROVIDERS: ADMIT Internal Medicine; ATTEND Internal Medicine
PROC: 0T768DZ Dilation of Right Ureter with Intraluminal Device, Via Natural or Artificial Opening Endoscopic (ICD-10-PCS; principal; 2017-04-10)
PROC: BT1D1ZZ Fluoroscopy of Right Kidney, Ureter and Bladder using Low Osmolar Contrast (ICD-10-PCS; 2017-04-10)
PROC: 4A033R1 Measurement of Arterial Saturation, Peripheral, Percutaneous Approach (ICD-10-PCS; 2017-04-10)
DX: A41.51 Sepsis due to Escherichia coli [E. coli] (principal); J96.01 Acute respiratory failure with hypoxia; R65.21 Severe sepsis with septic shock; G93.40 Encephalopathy, unspecified; R53.2 Functional quadriplegia; J18.9 Pneumonia, unspecified organism; I48.92 Unspecified atrial flutter; N13.30 Unspecified hydronephrosis; N39.0 Urinary tract infection, site not specified; N17.9 Acute kidney failure, unspecified; N20.1 Calculus of ureter; E87.0 Hyperosmolality and hypernatremia; A04.72 Enterocolitis due to Clostridium difficile, not specified as recurrent; E66.01 Morbid (severe) obesity due to excess calories; I25.10 Atherosclerotic heart disease of native coronary artery without angina pectoris; E87.5 Hyperkalemia; E83.42 Hypomagnesemia; K21.9 Gastro-esophageal reflux disease without esophagitis; D69.6 Thrombocytopenia, unspecified; I25.5 Ischemic cardiomyopathy; F32.9 Major depressive disorder, single episode, unspecified; E11.42 Type 2 diabetes mellitus with diabetic polyneuropathy; H40.9 Unspecified glaucoma; J44.9 Chronic obstructive pulmonary disease, unspecified; I12.9 Hypertensive chronic kidney disease with stage 1 through stage 4 chronic kidney disease, or unspecified chronic kidney disease; N18.3 Chronic kidney disease, stage 3 (moderate); D35.02 Benign neoplasm of left adrenal gland; E11.65 Type 2 diabetes mellitus with hyperglycemia; N20.0 Calculus of kidney; E83.39 Other disorders of phosphorus metabolism; I71.4 Abdominal aortic aneurysm, without rupture; I73.9 Peripheral vascular disease, unspecified; Z86.73 Personal history of transient ischemic attack (TIA), and cerebral infarction without residual deficits; Z68.38 Body mass index [BMI] 38.0-38.9, adult; Z79.899 Other long term (current) drug therapy; Z88.6 Allergy status to analgesic agent; Z95.1 Presence of aortocoronary bypass graft; Z98.61 Coronary angioplasty status; Z79.82 Long term (current) use of aspirin; Z79.4 Long term (current) use of insulin; I25.2 Old myocardial infarction
CPT/HCPCS: 36415; 71010; 74000; 74176; 74420; 80048; 80053; 80061; 81001; 82040; 82140; 82550; 82553; 82803; 82962; 83690; 83735; 83880; 84100; 84439; 84443; 84484; 85007; 85025; 85027; 85384; 85610; 85730; 86140; 87040; 87076; 87086; 87186; 87493; 93005; 93010; 93306; 94640; 94760; 96365; 96366; 96368; 96375; A4217; C1758; C1769; C2617; G8978-GP; G8979-GP; J0282; J0692; J0696; J1170; J1644; J1815; J2543; J2704; J3010; J3370; J3475; J7030; J7040; J7050; J7060; J7070; Q9967

== ENCOUNTER 2017-07-12 07:10 | Day surgery (SDC) | payer MEDICARE ==
[~2017-07-12 07:10] MED LIST: ANCEF/STERILE WATER 2 GM/20 ML IV NR
[2017-07-12] MEDS ORDERED: NACL BACTERIOSTATIC INFILTRATI ONE (07:18)
--- NOTE | 2017-07-12 07:31 | Anesthesia Consultation ---
Anesthesia Consult and Med Hx Date of service: 07/12/17 - Airway Anesthetic Teeth Evaluation: Poor ROM Head & Neck: Adequate Mental/Hyoid Distance: Adequate Intubation Access Assessment: Possibly Difficult - Pre-Operative Health Status ASA Pre-Surgery Classification: ASA4 Proposed Anesthetic Plan: General - Pulmonary Hx Smoking: No COPD: Yes (left lower lobe atelectsis 04/10/17) Hx Pneumonia: Yes (04/10/17) Hx Sleep Apnea: No (HOWARD PRE SCREEN LOW RISK.) - Cardiovascular System Hx Hypertension: Yes (non ischemic cardiomyopathy) Hx Coronary Artery Disease: Yes (CABG, CAD, PCI, EF 45%) Hx Heart Attack/AMI: Yes Hx Cardia Arrhythmia: Yes (Aflutter intermittent, RBBB) Hx Peripheral Vascular Disease: Yes - Central Nervous System Hx Neuromuscular Disorder: Yes (contracted legs with limited movement) CVA: Yes (L hemiparesis, strictures, functional quad.) Hx Psychiatric Problems: Yes (depression) - Gastrointestinal Hx Gastroesophageal Reflux Disease: No - Endocrine Hx Renal Disease: Yes (ckd) Hx Insulin Dependent Diabetes: Yes (not well controlled) - Hematic Hx Anemia: No (thrombocytopnia secondary to sepsis (RESOLVED)) - Other Systems Hx Alcohol Use: No Hx Substance Use: No Hx Cancer: No Hx Obesity: Yes - Additional Comments Anesthesia Medical History Comments: cardiac clearance on chart. pt had uncomplicated general anesthetic 04/24
[2017-07-12] MEDS ORDERED: NACL 0.9% 1000 ML 1,000 ML ONE (07:34)
--- NOTE | 2017-07-12 07:36 | Anesthesia Day of Surgery ---
Anesthesia Day of Surgery - Day of Surgery Patient Examined: Yes Patient H&P Reviewed: Yes Patient is NPO: Yes Beta Blockers: Yes Cardiac Clearance: Yes
[2017-07-12] MEDS ORDERED: NACL 0.9% 1000 ML 1,000 ML IV SCH (08:00)
[2017-07-12] MEDS ORDERED: LOPRESSOR PO ONE (08:30)
[2017-07-12] MEDS ORDERED: CORDARONE PO ONE (08:30)
[2017-07-12] MEDS ORDERED: SUBLIMAZE ONE (08:32)
[2017-07-12] MEDS ORDERED: PEPCID IV NR (09:00)
[2017-07-12] MEDS ORDERED: XYLOCAINE MPF 2% ONE (09:12)
[2017-07-12] MEDS ORDERED: AMIDATE IV ONE (09:13)
[2017-07-12] MEDS ORDERED: ZOFRAN ONE (09:36)
[2017-07-12] MEDS ORDERED: WATER FOR IRRIG STERILE IR ONE (09:48)
--- NOTE | 2017-07-12 10:04 | Short Stay Summary ---
Short Stay Documentation Date of service: 07/12/17 - History H&P: obtained from office - Allergies and Medications Current Medications: Allergies codeine Allergy (Verified 04/08/17 05:05) Nausea morphine Allergy (Verified 04/08/17 05:05) Nausea Home Medications Medication Instructions Recorded Confirmed Last Taken Type Acetaminophen [Acetaminophen ER 650 mg PO Q8HR PRN 12/07/16 07/03/17 12/07/16 History TAB] Butalb/Acetamin/Caff 50-325-40 1 each PO Q4H PRN 12/07/16 07/03/17 12/07/16 History [Fioricet] Diphenoxylate HCl/Atropine 2 tab PO Q6H PRN 12/07/16 07/03/17 12/07/16 History [Lomotil 2.5-0.025 mg Tablet] Magnesium Hydroxide [Milk of 30 ml PO Q12H PRN 12/07/16 07/03/17 12/07/16 History Magnesia] Omeprazole Magnesium [PriLOSEC Otc] 20 mg PO QDAY 12/07/16 07/12/17 07/11/17 09: 00 History Gabapentin [Neurontin] 300 mg PO Q8HR capsule 12/09/16 07/03/17 Unknown Rx Min Oil/Petrolatum [Artificial 1 applic OU QHS tube 12/09/16 07/03/17 Unknown Rx Tears Ophth Oint] Multivitamin Tab W-MINERAL 1 each PO QDAY tablet 12/09/16 07/03/17 Unknown Rx [Multiple Vitamin/Mineral (Theragran M)] Sertraline [Zoloft] 12.5 mg PO QDAY tablet 12/09/16 07/03/17 Unknown Rx Antacid Suspension 30 ml PO Q4H PRN 04/08/17 07/03/17 Unknown History Aspirin [Aspirin TAB] 1 tab PO DAILY 04/08/17 07/12/17 07/04/17 09:00 History Zocor TAB 20 mg PO HS 04/08/17 07/12/17 07/11/17 19:00 History Amiodarone [Cordarone 200 MG TAB] 200 mg PO BID #30 tablet 04/16/17 07/12/1709/23 17:00 Rx Apixaban [Eliquis] 5 mg PO Q12HR #30 tablet 04/16/17 07/12/17 07/08/17 09:00 Rx Furosemide [Lasix TAB] 20 mg PO QDAY #30 tablet 04/16/17 07/12/17 07/11/17 09: 00 Rx Lisinopril [Zestril TAB] 2.5 mg PO QDAY #60 tablet 04/16/17 07/12/17 07/11/17 09 :00 Rx Metoprolol [Lopressor TAB] 50 mg PO TID #90 tablet 04/16/17 07/12/17 07/11/17 19 :00 Rx Percocet 5/325 mg 1 tab PO Q12H PRN #7 04/16/17 07/03/17 Unknown Rx Docusate Sodium [Colace CAP] 100 mg PO BID PRN 07/03/17 07/03/17 Unknown History Active Medications Cefazolin Sodium (Ancef/Sterile Water 2 Gm/20 Ml) 2 gm IV PREOP NR Stop: 07/12/17 23:59 Sodium Chloride (Nacl 0.9% 1000 Ml) 1,000 mls @ 100 mls/hr IV DIRECT HERMELINDO Last Admin: 07/12/17 08:05 Dose: 100 mls/hr - Brief post op/procedure progress note Date of procedure: 07/12/17 Pre-op diagnosis: rt ureteral stone Post-op diagnosis: same Procedure: cysto, rt eswl ureteral stone(6 kv, 3k shocks) Anesthesia: GETA Surgeon: UNIQUE ESTRADA Estimated blood loss: none Condition: stable - Hospital course Hospital course: percocet & post op info on chart - Disposition Condition at discharge: Stable Disposition: DC-01 TO HOME OR SELFCARE Short Stay Discharge Plan Follow up with: ROSANNE HANLEY MD [Primary Care Provider] - 7 Days
--- NOTE | 2017-07-12 10:26 | Operative Report ---
PREOPERATIVE DIAGNOSES: Right proximal ureteral stone, status post stent placement, possible bladder stone. POSTOPERATIVE DIAGNOSES: Right proximal ureteral stone, status post stent placement, possible bladder stone. No bladder stone, right distal ureteral stone, 10 mm. PROCEDURE: Cystoscopy, right extracorporal shock wave lithotripsy. SURGEON: Brian Smith MD ANESTHESIA: General. ESTIMATED BLOOD LOSS: Minimal. FLUIDS: Crystalloid. COMPLICATIONS: No complications. INDICATIONS: This patient is a 71-year-old female initially seen in the hospital for right flank pain and sepsis. She underwent cysto stent placement, presents now for elective lithotripsy. Risks, benefits, and complications were explained. The patient agreed to proceed. She was cleared from a cardiac standpoint by Dr. Toledo. DESCRIPTION OF PROCEDURE: The patient was taken to the operative suite, placed in the supine position. After adequate general anesthesia, she was placed in a dorsal lithotomy position, prepped and draped in a sterile fashion. Cystoscopy was performed. No bladder stone. Her stent was in good position. Bladder was drained. No tumors or stones were noted. Her stone was then localized in 2 planes using fluoroscopy. Extracorporal shock wave lithotripsy was administered with a maximum kV of 6 and 3000 shocks. We noted some fragmentation. She tolerated the procedure well. She was extubated and taken to recovery room in stable condition. . She will go to the skilled nursing and follow up for reevaluation. JOB# [id number] Roque/GREY
[2017-07-12] MEDS ORDERED: PERCOCET 5/325 PO SCH (11:10)
[2017-07-12] MEDS ORDERED: ZOFRAN IV SCH (11:38)
[2017-07-12 21:06] VITALS: BP 128/63
== END 2017-07-12 12:17 | disposition home or self-care (01) ==
LOC: OR 07:10
PROVIDERS: ATTEND Urology
DX: N13.2 Hydronephrosis with renal and ureteral calculous obstruction (principal); I11.0 Hypertensive heart disease with heart failure; I50.9 Heart failure, unspecified; I25.10 Atherosclerotic heart disease of native coronary artery without angina pectoris; J44.9 Chronic obstructive pulmonary disease, unspecified; F32.9 Major depressive disorder, single episode, unspecified; E66.9 Obesity, unspecified; I42.9 Cardiomyopathy, unspecified; E78.5 Hyperlipidemia, unspecified; E11.51 Type 2 diabetes mellitus with diabetic peripheral angiopathy without gangrene; I13.0 Hypertensive heart and chronic kidney disease with heart failure and stage 1 through stage 4 chronic kidney disease, or unspecified chronic kidney disease; I25.2 Old myocardial infarction; E11.22 Type 2 diabetes mellitus with diabetic chronic kidney disease; N18.9 Chronic kidney disease, unspecified; I69.365 Other paralytic syndrome following cerebral infarction, bilateral; G82.50 Quadriplegia, unspecified; I69.354 Hemiplegia and hemiparesis following cerebral infarction affecting left non-dominant side; Z79.82 Long term (current) use of aspirin; Z79.899 Other long term (current) drug therapy; Z86.73 Personal history of transient ischemic attack (TIA), and cerebral infarction without residual deficits; Z88.5 Allergy status to narcotic agent; Z96.0 Presence of urogenital implants; Z95.1 Presence of aortocoronary bypass graft
CPT/HCPCS: 50590; 82962; A4217; J0690; J2405; J3010; J7030

== ENCOUNTER 2018-08-29 08:36 | Day surgery (SDC) | payer MEDICARE ==
--- NOTE | 2018-08-29 08:57 | Anesthesia Consultation ---
Anesthesia Consult and Med Hx Date of service: 08/29/18 - Airway Anesthetic Teeth Evaluation: Poor ROM Head & Neck: Adequate Mental/Hyoid Distance: Adequate Mallampati Class: Class II Intubation Access Assessment: Possibly Difficult - Pulmonary Exam CTA: Yes - Cardiac Exam Cardiac Exam: RRR Anesthetic Concerns: Teeth in very poor repair with multiple missing/ chipped. No loose teeth per patient report. - Pre-Operative Health Status ASA Pre-Surgery Classification: ASA4 Proposed Anesthetic Plan: General - Pulmonary Hx Smoking: Yes (STOPPED X 25 YRS) SOB: Yes (SOB) COPD: Yes (INHALER PRN) Hx Pneumonia: Yes (04/2017) Hx Sleep Apnea: No (HOWARD PRE SCREEN LOW RISK.) - Cardiovascular System Hx Hypertension: Yes (non ischemic cardiomyopathy) Hx Coronary Artery Disease: Yes (CABG, CAD, PCI, EF 45%) Hx Heart Attack/AMI: Yes Hx Cardia Arrhythmia: Yes (Aflutter intermittent, RBBB) Hx Peripheral Vascular Disease: Yes - Central Nervous System Hx Neuromuscular Disorder: Yes (contracted legs with limited movement) CVA: Yes (L hemiparesis , CONTRACTED LEGS) - Gastrointestinal Hx Gastroesophageal Reflux Disease: No - Endocrine Hx Renal Disease: Yes (ckd) Hx Insulin Dependent Diabetes: Yes (not well controlled) - Hematic Hx Anemia: Yes (thrombocytopnia secondary to sepsis (RESOLVED)) - Other Systems Hx Alcohol Use: No Hx Substance Use: No Hx Cancer: No
[2018-08-29] MEDS ORDERED: NACL 0.9% 1000 ML 1,000 ML IV SCH (09:30)
[2018-08-29 09:51] LABS: Basophils % (Auto) 0.8 % (0.0-1.8); Eosinophils # (Auto) 0.1 K/mm3 (0.0-0.4); Eosinophils % (Auto) 2.3 % (0.0-4.3); Hemoglobin 11.1 gm/dl (10.1-14.3); Lymphocytes % (Auto) 45.8 % (13.4-35.0); Mean Corpuscular HGB Conc 32 % (30-34); Mean Corpuscular Volume 97 fl (79-97); Monocytes # (Auto) 0.4 K/mm3 (0.0-0.8); Monocytes % (Auto) 8.9 % (0.0-7.3); Platelet Count 214 K/mm3 (140-440); Red Blood Count 3.63 M/mm3 (3.65-5.03); Red Cell Distribution Width 14.5 % (13.2-15.2)
[2018-08-29 10:01] LABS: BUN/Creatinine Ratio 25; Blood Urea Nitrogen 15 mg/dL (7-17); Calcium 8.7 mg/dL (8.4-10.2); Hemolysis Index 8
[2018-08-29 10:02] LABS: INR 0.88 (0.87-1.13)
[2018-08-29] MEDS ORDERED: DIPRIVAN 10 MG/ML IV ONE (12:06)
[2018-08-29] MEDS ORDERED: SUBLIMAZE ONE (12:06)
[2018-08-29] MEDS ORDERED: ZOFRAN ONE (12:06)
[2018-08-29] MEDS ORDERED: XYLOCAINE MPF 2% ONE (12:08)
[2018-08-29] MEDS ORDERED: WATER FOR IRRIG STERILE IR ONE (13:14)
[2018-08-29] MEDS ORDERED: DILAUDID IV PRN (13:58)
[2018-08-29] MEDS ORDERED: PERCOCET 5/325 PO PRN (13:59)
[2018-08-29] MEDS ORDERED: DILAUDID ONE (14:01)
[2018-08-29] MEDS ORDERED: LOPRESSOR IV PRN (14:15)
[2018-08-29] MEDS ORDERED: LOPRESSOR IV ONE (14:20)
--- NOTE | 2018-08-29 14:31 | Anesthesia Day of Surgery ---
Anesthesia Day of Surgery - Day of Surgery Patient Examined: Yes Patient H&P Reviewed: Yes Patient is NPO: Yes Beta Blockers: Yes (metoprolol)
--- NOTE | 2018-08-29 14:37 | Post Anesthesia Evaluation ---
- Post Anesthesia Evaluation Patient Participated: Yes Airway Patent: Yes Stable Respiratory Function: Yes Temp > 96.8F: Yes Pain Manageable: Yes Adequeate Hydration: Yes Anesthesia Complications: No
--- NOTE | 2018-08-29 15:36 | Short Stay Summary ---
Short Stay Documentation Date of service: 08/29/18 - History H&P: obtained from office - Allergies and Medications Current Medications: Allergies codeine Allergy (Verified 04/08/17 05:05) Nausea morphine Allergy (Verified 04/08/17 05:05) Nausea Home Medications Medication Instructions Recorded Confirmed Last Taken Type Acetaminophen [Acetaminophen ER 650 mg PO Q8HR PRN 12/07/16 08/29/18 08/28/18 09:00 History TAB] Butalb/Acetamin/Caff 50-325-40 1 each PO Q4H PRN 12/07/16 08/29/18 08/28/18 21:00 History [Fioricet] Omeprazole Magnesium [PriLOSEC Otc] 20 mg PO QDAY 12/07/16 08/29/18 08/29/18 07:00 History Gabapentin [Neurontin] 300 mg PO Q8HR capsule 12/09/16 08/29/18 08/29/18 06:00 Rx Min Oil/Petrolatum [Artificial 1 applic OU QHS tube 12/09/16 08/29/18 08/29/18 07:00 Rx Tears Ophth Oint] Multivitamin Tab W-MINERAL 1 each PO QDAY tablet 12/09/16 08/29/18 08/28/18 09:00 Rx [Multiple Vitamin/Mineral (Theragran M)] Aspirin [Aspirin TAB] 325 mg PO DAILY 04/08/17 08/29/18 08/19/18 09:00 History Apixaban [Eliquis] 5 mg PO Q12HR #30 tablet 04/16/17 08/29/18 08/28/18 09:00 Rx Furosemide [Lasix TAB] 20 mg PO QDAY #30 tablet 04/16/17 08/29/18 08/28/18 09:00 Rx Percocet 5/325 mg 1 tab PO Q12H PRN #7 04/16/17 08/29/18 08/28/18 21:00 Rx ALBUTEROL Inhaler (OR & NICU) 1 puff IH BID 12/10/17 08/29/18 08/28/18 21:00 History [ProAir HFA Inhaler] Amiodarone [Cordarone 200 MG TAB] 200 mg PO QDAY 12/10/17 08/29/18 08/28/18 09:00 History Ascorbic Acid 500 mg PO QDAY 12/10/17 08/29/18 08/28/18 09:00 History Ferrous Sulfate [Iron] 325 mg PO QDAY 12/10/17 08/29/18 08/28/18 09:00 History Losartan Potassium 25 mg PO QDAY 12/10/17 08/29/18 08/28/18 09:00 History Simvastatin [Zocor] 20 mg PO QHS 12/10/17 08/29/18 08/28/18 21:00 History Metoprolol [Lopressor TAB] 25 mg PO BID #30 tablet 12/12/17 08/29/18 08/29/18 07:00 Rx Ergocalciferol (Vitamin D2) 2,000 unit PO DAILY 08/15/18 08/29/18 08/28/18 09:00 History [Vitamin D2] Active Medications Cefazolin Sodium (Ancef/Sterile Water 2 Gm/20 Ml) 2 gm IV PREOP NR Stop: 08/29/18 23:59 Hydromorphone HCl (Dilaudid) 0.25 mg IV Q10M PRN PRN Reason: Pain , Severe (7-10) Stop: 08/29/18 23:59 Sodium Chloride (Nacl 0.9% 1000 Ml) 1,000 mls @ 75 mls/hr IV DIRECT HERMELINDO Stop: 08/29/18 23:59 Last Admin: 08/29/18 09:40 Dose: 75 mls/hr Documented by: Metoprolol Tartrate (Lopressor) 2.5 mg IV Q10M PRN PRN Reason: Hypertension Stop: 08/29/18 23:59 Last Admin: 08/29/18 14:20 Dose: 2.5 mg Documented by: Oxycodone/Acetaminophen (Percocet 5/325) 1 tab PO ONCE PRN PRN Reason: Pain, Moderate (4-6) - Brief post op/procedure progress note Date of procedure: 08/29/18 Pre-op diagnosis: right renal stone Post-op diagnosis: same Procedure: right renal stone eswl and prox j stent eswl Anesthesia: GETA Findings: encrusted stent Surgeon: SONIA VILLANUEVA Estimated blood loss: none Pathology: none Condition: stable - Hospital course Hospital course: orpacuhome - Disposition Condition at discharge: Good Disposition: DC-01 TO HOME OR SELFCARE Short Stay Discharge Plan Activity: advance as tolerated Diet: advance as tolerated Additional Instructions: FOLLOW-UP WITH DR. UNIQUE ESTRADA IN THE [facility] IN 7 DAYS. MAKE A CALL IN THE OFFICE FOR THAT APPOINTMENT. Follow up with: UNIQUE ESTRADA MD [Staff Physician] - 7 Days
[2018-08-29 15:48] VITALS: BP 162/89
--- NOTE | 2018-09-13 09:56 | Operative Report ---
PREOPERATIVE DIAGNOSES: Right renal stone and retained stent. POSTOPERATIVE DIAGNOSES: Right renal stone and retained stent. PROCEDURE: Right renal ESWL and proximal J ESWL, cysto, and right double-J stent exchange. The patient has a history of noncompliance with history of stones and stents. Procedure as listed. ANESTHESIA: General. SPECIMENS: None. ESTIMATED BLOOD LOSS: Minimal. FINDINGS: Encrusted stent. PLAN: Follow up outpatient for stent removal. CLINICAL INDICATION: The patient counseled on RCBA, antibiotics, SCD, history of noncompliance with retained encrusted stent and the renal stone. Was counseled procedure, antibiotics, SCDs. DESCRIPTION OF PROCEDURE: The patient was transferred to the OR suite in supine position, anesthesia begun, dorsal lithotomy position. Biplanar fluoroscopy was used to target the proximal stone and proximal J of the stent. Extracorporeal shock wave lithotripsy was begun. We fragmented the proximal J of the stent and with cystoscopy and manipulation, we were able to pass the wire adjacent to the stent and then manipulated and pulled and removed the stent. Wire was backloaded on the cystoscope. A 6-Maori double-J stent was passed over the wire under direct and fluoroscopic visualization and was now in good place. Next, we proceeded to fragment the remaining stone fragments that were within the right kidney with a maximum of 2500 shocks with moderate decreased density of the stone fragments. At this point, the procedure was completed. The patient awakened and transferred to PACU in good and stable. JOB# [id number] ATS/NTS
== END 2018-08-29 16:55 | disposition home or self-care (01) ==
LOC: OR 08:36
PROVIDERS: ATTEND Urology
DX: Z46.6 Encounter for fitting and adjustment of urinary device (principal); N20.0 Calculus of kidney; F17.210 Nicotine dependence, cigarettes, uncomplicated; J44.9 Chronic obstructive pulmonary disease, unspecified; J18.9 Pneumonia, unspecified organism; I10 Essential (primary) hypertension; I25.10 Atherosclerotic heart disease of native coronary artery without angina pectoris; I25.2 Old myocardial infarction; I73.9 Peripheral vascular disease, unspecified; I49.9 Cardiac arrhythmia, unspecified; D64.9 Anemia, unspecified; G70.9 Myoneural disorder, unspecified; Z86.73 Personal history of transient ischemic attack (TIA), and cerebral infarction without residual deficits; Z79.4 Long term (current) use of insulin; Z95.1 Presence of aortocoronary bypass graft; Z79.899 Other long term (current) drug therapy; Z98.890 Other specified postprocedural states
CPT/HCPCS: 36415; 50590; 52332; 80048; 85025; 85610; 85730; A4217; C1769; C2617; J0690; J1170; J2405; J2704; J3010; J7030

== ENCOUNTER 2022-04-05 11:18 | Observation (INO) | payer MEDICARE ==
[2022-04-05] MEDS ORDERED: ASPIRIN 81 MG TAB CHEW PO ONE (11:34)
--- NOTE | 2022-04-05 12:13 | Emergency Department Report ---
<CALI NEFF - Last Filed: 04/05/22 12:11> ED Chest Pain HPI - General Chief Complaint: Chest Pain Stated Complaint: CHEST PAIN Time Seen by Provider: 04/05/22 11:33 Source: EMS Mode of arrival: Stretcher Limitations: No Limitations - History of Present Illness Initial Comments: Patient is a 76-year-old female with history of coronary artery disease, CABG and multiple stents presenting to ED with complaint of chest pain that began this morning. The pain is located in the center/epigastric region of her chest. She describes the pain as someone is sitting on her chest. She reports associated nausea without vomiting. No modifying factors. Severity scale (0 -10): 2 - Related Data Home Medications Medication Instructions Recorded Confirmed Last Taken Acetaminophen [Acetaminophen ER 650 mg PO Q8HR PRN 12/07/16 08/29/18 08/28/18 09:00 TAB] Butalb/Acetamin/Caff 50-325-40 1 each PO Q4H PRN 12/07/16 08/29/18 08/28/18 21:00 [Fioricet 50-325-40] Omeprazole Magnesium [PriLOSEC Otc] 20 mg PO QDAY 12/07/16 08/29/18 08/29/18 07:00 Aspirin 325 mg PO DAILY 04/08/17 08/29/18 08/19/18 09:00 Albuterol Mdi (or & Nicu Only) 1 puff IH BID 12/10/17 08/29/18 08/28/18 21:00 [ProAir HFA Inhaler] Amiodarone [Cordarone 200 MG TAB] 200 mg PO QDAY 12/10/17 08/29/18 08/28/18 09:00 Ascorbic Acid 500 mg PO QDAY 12/10/17 08/29/18 08/28/18 09:00 Ferrous Sulfate [Iron 325 MG] 325 mg PO QDAY 12/10/17 08/29/18 08/28/18 09:00 Losartan Potassium 25 mg PO QDAY 12/10/17 08/29/18 08/28/18 09:00 Simvastatin [Zocor] 20 mg PO QHS 12/10/17 08/29/18 08/28/18 21:00 Ergocalciferol (Vitamin D2) 2,000 unit PO DAILY 08/15/18 08/29/18 08/28/18 09:00 [Vitamin D2] Previous Rx's Medication Instructions Recorded Last Taken Type Gabapentin 300 mg PO Q8HR capsule 12/09/16 08/29/18 06:00 Rx Min Oil/Petrolatum [Artificial 1 applic OU QHS tube 12/09/16 08/29/18 07:00 Rx Tears Ophth Oint] Multivitamin Tab W-MINERAL 1 each PO QDAY tablet 12/09/16 08/28/18 09:00 Rx [Multiple Vitamin/Mineral (Theragran M)] Apixaban [Eliquis] 5 mg PO Q12HR #30 tablet 04/16/17 08/28/18 09:00 Rx Furosemide [Lasix TAB] 20 mg PO QDAY #30 tablet 04/16/17 08/28/18 09:00 Rx Percocet 5/325 mg 1 tab PO Q12H PRN #7 04/16/17 08/28/18 21:00 Rx Metoprolol [Lopressor TAB] 25 mg PO BID #30 tablet 12/12/17 08/29/18 07:00 Rx cefUROXime [Ceftin] 250 mg PO Q12H #10 tablet 08/29/18 Unknown Rx Allergies Allergy/AdvReac Type Severity Reaction Status Date / Time codeine Allergy Nausea Verified 04/05/22 11:26 morphine Allergy Nausea Verified 04/05/22 11:26 ED Review of Systems Constitutional: denies: chills, fever Respiratory: denies: cough, shortness of breath, wheezing Cardiovascular: chest pain. denies: palpitations Endocrine: no symptoms reported Gastrointestinal: nausea. denies: abdominal pain, vomiting, diarrhea Genitourinary: denies: urgency, dysuria, discharge Musculoskeletal: denies: back pain, joint swelling, arthralgia Skin: denies: rash, lesions Neurological: headache Psychiatric: denies: anxiety, depression ED Past Medical Hx - Past Medical History Hx Hypertension: Yes (non ischemic cardiomyopathy) Hx CVA: Yes (Left Hemiplegia) Hx Heart Attack/AMI: Yes Hx Congestive Heart Failure: Yes Hx Diabetes: Yes (WITH PERIPHERAL NEUROPATHY) Hx Deep Vein Thrombosis: No Hx GERD: Yes Hx Renal Disease: Yes (ckd) Hx Arthritis: Yes Hx Psychiatric Treatment: Yes (Depression) Hx COPD: Yes (INHALER PRN) Hx HIV: No Additional medical history: cardiac stents. Atrial fibrillation - Surgical History Hx Coronary Stent: Yes ("SEVERAL STENTS"- LAST ONE DONE 2009) Hx Open Heart Surgery: Yes (1996) Hx Cholecystectomy: Yes Hx Appendectomy: Yes (1986) Hx Breast Surgery: Yes (1986 removed rt nipple) Additional Surgical History: hystererctomy 1986 - Social History Smoking Status: Former Smoker - Medications Home Medications: Home Medications Medication Instructions Recorded Confirmed Last Taken Type Acetaminophen [Acetaminophen ER 650 mg PO Q8HR PRN 12/07/16 08/29/18 08/28/18 09:00 History TAB] Butalb/Acetamin/Caff 50-325-40 1 each PO Q4H PRN 12/07/16 08/29/18 08/28/18 21:00 History [Fioricet 50-325-40] Omeprazole Magnesium [PriLOSEC Otc] 20 mg PO QDAY 12/07/16 08/29/18 08/29/18 07:00 History Gabapentin 300 mg PO Q8HR capsule 12/09/16 08/29/18 08/29/18 06:00 Rx Min Oil/Petrolatum [Artificial 1 applic OU QHS tube 12/09/16 08/29/18 08/29/18 07:00 Rx Tears Ophth Oint] Multivitamin Tab W-MINERAL 1 each PO QDAY tablet 12/09/16 08/29/18 08/28/18 09:00 Rx [Multiple Vitamin/Mineral (Theragran M)] Aspirin 325 mg PO DAILY 04/08/17 08/29/18 08/19/18 09:00 History Apixaban [Eliquis] 5 mg PO Q12HR #30 tablet 04/16/17 08/29/18 08/28/18 09:00 Rx Furosemide [Lasix TAB] 20 mg PO QDAY #30 tablet 04/16/17 08/29/18 08/28/18 09:00 Rx Percocet 5/325 mg 1 tab PO Q12H PRN #7 04/16/17 08/29/18 08/28/18 21:00 Rx Albuterol Mdi (or & Nicu Only) 1 puff IH BID 12/10/17 08/29/18 08/28/18 21:00 History [ProAir HFA Inhaler] Amiodarone [Cordarone 200 MG TAB] 200 mg PO QDAY 12/10/17 08/29/18 08/28/18 09:00 History Ascorbic Acid 500 mg PO QDAY 12/10/17 08/29/18 08/28/18 09:00 History Ferrous Sulfate [Iron 325 MG] 325 mg PO QDAY 12/10/17 08/29/18 08/28/18 09:00 History Losartan Potassium 25 mg PO QDAY 12/10/17 08/29/18 08/28/18 09:00 History Simvastatin [Zocor] 20 mg PO QHS 12/10/17 08/29/18 08/28/18 21:00 History Metoprolol [Lopressor TAB] 25 mg PO BID #30 tablet 12/12/17 08/29/18 08/29/18 07:00 Rx Ergocalciferol (Vitamin D2) 2,000 unit PO DAILY 08/15/18 08/29/18 08/28/18 09:00 History [Vitamin D2] cefUROXime [Ceftin] 250 mg PO Q12H #10 tablet 08/29/18 Unknown Rx ED Physical Exam - General Limitations: No Limitations General appearance: alert, in no apparent distress - Head Head exam: Present: atraumatic, normocephalic - Respiratory Respiratory exam: Present: normal lung sounds bilaterally. Absent: respiratory distress - Cardiovascular Cardiovascular Exam: Present: regular rate, normal rhythm, normal heart sounds - GI/Abdominal GI/Abdominal exam: Present: soft. Absent: distended, tenderness - Rectal Rectal exam: Present: deferred - Neurological Exam Neurological exam: Present: alert, oriented X3 - Psychiatric Psychiatric exam: Present: normal affect, normal mood - Skin Skin exam: Present: warm, dry, intact, normal color JOSE score - Jose Score Age > 65: (1) Yes Aspirin use within the Past 7 Days: (1) Yes 3 or more CAD Risk Factors: (1) Yes 2 or more Angina events in past 24 hrs: (0) No Known CAD with more than 50% Stenosis: (1) Yes Elevated Cardiac Markers: (0) No ST Deviation Greater than 0.5mm: (0) No JOSE Score: 4 ED Disposition Clinical Impression: Chest pain Disposition: ADMITTED INPATIENT Condition: Stable Instructions: Nonspecific Chest Pain, Adult <MIRACLE JUNG - Last Filed: 04/06/22 05:16> ED Chest Pain HPI - General PUI?: No Heart Score - HEART Score History: Moderately suspicious EKG: Non-specific Age: > 65 Risk factors: > 3 risk factors or hx of atherosclerotic disease Troponin: < normal limit HEART Score: 6 - EKG Read Time Time EKG Completed: 20:09 EKG Read Time: 20:09 - Critical Actions Critical Actions: 4-6 pts:12-16.6% risk of adverse cardiac event. Should be admitted ED Review of Systems ROS: Stated complaint: CHEST PAIN Other details as noted in HPI ED Course Vital Signs 04/05/22 04/05/22 04/05/22 11:24 12:09 13:01 Pulse Rate 86 66 Respiratory 18 25 H 28 H Rate Blood Pressure 178/70 Blood Pressure 197/87 [Left] O2 Sat by Pulse 99 97 Oximetry 04/05/22 04/05/22 04/05/22 14:01 15:01 16:01 Pulse Rate 66 63 63 Respiratory 24 22 23 Rate Blood Pressure 178/70 178/70 95/43 Blood Pressure [Left] O2 Sat by Pulse 99 99 98 Oximetry 04/05/22 04/05/22 04/05/22 17:01 18:01 19:01 Pulse Rate 61 63 62 Respiratory 22 10 L 22 Rate Blood Pressure 95/43 131/47 103/46 Blood Pressure [Left] O2 Sat by Pulse 99 97 98 Oximetry 04/05/22 04/05/22 04/05/22 20:01 20:41 20:43 Pulse Rate 64 64 Respiratory 13 15 15 Rate Blood Pressure 111/54 Blood Pressure 111/54 [Left] O2 Sat by Pulse 97 97 95 Oximetry 04/05/22 04/05/22 04/05/22 21:01 22:00 23:01 Pulse Rate 65 69 58 L Respiratory 17 16 18 Rate Blood Pressure 151/65 151/65 163/66 Blood Pressure [Left] O2 Sat by Pulse 99 100 98 Oximetry ED Medical Decision Making - Lab Data Result diagrams: 04/05/22 12:44 04/05/22 23:48 Critical care attestation.: If time is entered above; I have spent that time in minutes in the direct care of this critically ill patient, excluding procedure time. ED Disposition Is pt being admited?: Yes Does the pt Need Aspirin: No
[2022-04-05] MEDS ORDERED: PROCHLORPERAZINE EDISYLATE 10 MG/2 ML VIAL IV ONE (12:15)
--- NOTE | 2022-04-05 12:30 | XRay Report ---
CHEST 1 VIEW 04/05/2022 11:13 AM INDICATION / CLINICAL INFORMATION: Chest Pain. COMPARISON: One view of the chest from 12/09/2017. FINDINGS: SUPPORT DEVICES: None. HEART / MEDIASTINUM: Stable. LUNGS / PLEURA: No significant pulmonary abnormality. No significant pleural effusion. No pneumothora x. ADDITIONAL FINDINGS: There are moderate degenerative changes of the shoulders. IMPRESSION: 1. No acute abnormality of the chest. Signer Name: Donnie Streeter MD Signed: 04/05/2022 12:26 PM Workstation Name: [id number]
[2022-04-05 13:24] LABS: Basophils % (Auto) 0.4 % (0.0-1.8); Eosinophils % (Auto) 0.4 % (0.0-4.3); Hematocrit 36.8 % (30.3-42.9); Hemoglobin 12.3 gm/dl (10.1-14.3); Lymphocytes # (Auto) 1.3 K/mm3 (1.2-5.4); Lymphocytes % (Auto) 14.6 % (13.4-35.0); Mean Corpuscular HGB Conc 34 % (30-34); Mean Corpuscular Volume 98 fl (79-97); Monocytes # (Auto) 1.2 K/mm3 (0.0-0.8); Monocytes % (Auto) 12.9 % (0.0-7.3); Platelet Count 197 K/mm3 (140-440); Red Blood Count 3.74 M/mm3 (3.65-5.03); Red Cell Distribution Width 14.1 % (13.2-15.2)
[2022-04-05] MEDS ORDERED: oxyCODONE /ACETAMINOPHEN 5-325MG TAB PO ONE (20:59)
[2022-04-06 00:25] LABS: Alanine Aminotransferase 26 units/L (7-56); Albumin 3.6 g/dL (3.9-5); Blood Urea Nitrogen 12 mg/dL (7-17); Calcium 8.8 mg/dL (8.4-10.2); Hemolysis Index 145
[2022-04-06 01:05] LABS: BUN/Creatinine Ratio 17
[2022-04-06] MEDS ORDERED: ACETAMINOPHEN 325 MG TAB PO PRN (07:38)
[2022-04-06] MEDS: ONDANSETRON 4 MG/2 ML INJ IV PRN ×3 (09:12→22:37)
[2022-04-06] MEDS: oxyCODONE /ACETAMINOPHEN 5-325MG TAB PO PRN ×2 (09:12→22:18)
[2022-04-06] MEDS ORDERED: REGADENOSON 0.4 MG/5 ML INJ IV ONE (09:51)
--- NOTE | 2022-04-06 11:17 | History and Physical Report ---
History of Present Illness Date of examination: 04/06/22 Date of admission: 04/06/22 07:38 Chief complaint: I have chest pain History of present illness: Patient is a 74-year-old female with history of COPD, chronic respiratory failure requiring home oxygen, coronary artery disease status post CABG, atrial fibrillation and CVA with residual left-sided weakness who presented from correction with chest pain. She reports history of multiple stenting. 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 She describes the chest pain as someone sitting on her chest. Chest pain is intermittent and lasts up to 15 minutes with no alleviating factors. She does have associated cough and nausea, but no vomiting. The pain radiates down her left arm. She currently is not having any chest pain. Troponin was negative x2 and cardiology was consulted in the ED. patient was admitted for ACS rule out. Past History Past Medical History: atrial fib, CAD, COPD, heart failure, hypertension Past Surgical History: CABG Social history: no significant social history Family history: no significant family history Medications and Allergies Allergies Allergy/AdvReac Type Severity Reaction Status Date / Time codeine Allergy Nausea Verified 04/05/22 11:26 morphine Allergy Nausea Verified 04/05/22 11:26 Home Medications Medication Instructions Recorded Confirmed Last Taken Type Acetaminophen [Acetaminophen ER 650 mg PO Q8HR PRN 12/07/16 08/29/18 08/28/18 09:00 History TAB] Butalb/Acetamin/Caff 50-325-40 1 each PO Q4H PRN 12/07/16 08/29/18 08/28/18 21:00 History [Fioricet 50-325-40] Omeprazole Magnesium [PriLOSEC Otc] 20 mg PO QDAY 12/07/16 08/29/18 08/29/18 07:00 History Gabapentin 300 mg PO Q8HR capsule 12/09/16 08/29/18 08/29/18 06:00 Rx Min Oil/Petrolatum [Artificial 1 applic OU QHS tube 12/09/16 08/29/18 08/29/18 07:00 Rx Tears Ophth Oint] Multivitamin Tab W-MINERAL 1 each PO QDAY tablet 12/09/16 08/29/18 08/28/18 09:00 Rx [Multiple Vitamin/Mineral (Theragran M)] Aspirin 325 mg PO DAILY 04/08/17 08/29/18 08/19/18 09:00 History Apixaban [Eliquis] 5 mg PO Q12HR #30 tablet 04/16/17 08/29/18 08/28/18 09:00 Rx Furosemide [Lasix TAB] 20 mg PO QDAY #30 tablet 04/16/17 08/29/18 08/28/18 09:00 Rx Percocet 5/325 mg 1 tab PO Q12H PRN #7 04/16/17 08/29/18 08/28/18 21:00 Rx Albuterol Mdi (or & Nicu Only) 1 puff IH BID 12/10/17 08/29/18 08/28/18 21:00 History [ProAir HFA Inhaler] Amiodarone [Cordarone 200 MG TAB] 200 mg PO QDAY 12/10/17 08/29/18 08/28/18 09:00 History Ascorbic Acid 500 mg PO QDAY 12/10/17 08/29/18 08/28/18 09:00 History Ferrous Sulfate [Iron 325 MG] 325 mg PO QDAY 12/10/17 08/29/18 08/28/18 09:00 History Losartan Potassium 25 mg PO QDAY 12/10/17 08/29/18 08/28/18 09:00 History Simvastatin [Zocor] 20 mg PO QHS 12/10/17 08/29/18 08/28/18 21:00 History Metoprolol [Lopressor TAB] 25 mg PO BID #30 tablet 12/12/17 08/29/18 08/29/18 0 7:00 Rx Ergocalciferol (Vitamin D2) 2,000 unit PO DAILY 08/15/18 08/29/18 08/28/18 09:00 History [Vitamin D2] Naproxen Sodium [Naproxen Sodium 220 mg PO BID 7 Days #14 tab 04/07/22 Unknown Rx 220mg] Active Meds: Active Medications Acetaminophen (Acetaminophen 325 Mg Tab) 650 mg PO Q4H PRN PRN Reason: Pain MILD(1-3)/Fever >100.5/BLOOM Hydromorphone HCl (Hydromorphone 0.5 Mg/0.5 Ml Inj) 0.5 mg IV Q3H PRN PRN Reason: Pain , Severe (7-10) Ondansetron HCl (Ondansetron 4 Mg/2 Ml Inj) 4 mg IV Q8H PRN PRN Reason: Nausea And Vomiting Last Admin: 04/06/22 09:12 Dose: 4 mg Oxycodone/Acetaminophen (Oxycodone /Acetaminophen 5-325mg Tab) 1 tab PO Q6H PRN PRN Reason: Pain, Moderate (4-6) Last Admin: 04/06/22 09:12 Dose: 1 tab Sodium Chloride (Sodium Chloride 0.9% 10 Ml Flush Syringe) 10 ml IV BID HERMELINDO Last Admin: 04/06/22 09:46 Dose: 10 ml Sodium Chloride (Sodium Chloride 0.9% 10 Ml Flush Syringe) 10 ml IV PRN PRN PRN Reason: LINE FLUSH Stop: 04/19/22 07:37 Review of Systems Constitutional: no weight loss, no weight gain, no fever, no chills, no sweats, no fatigue Ears, nose, mouth and throat: deferred Breasts: deferred Cardiovascular: chest pain, shortness of breath, no palpitations, no rapid/irregular heart beat, no lightheadedness, no paroxysmal nocturnal dyspnea, no high blood pressure Respiratory: cough, home oxygen, no cough with sputum, no shortness of breath, no pain on inspiration Gastrointestinal: nausea, no abdominal pain, no vomiting, no change in bowel habits, no early satiety, no heartburn Musculoskeletal: muscle cramps, no shooting arm pain, no arm numbness/tingling, no leg numbness/tingling Integumentary: deferred Neurological: paralysis, weakness, no numbness, no tingling, no seizures, no tremors, no headaches, no change in mentation Endocrine: no cold intolerance, no excessive thirst, no polydipsia, no polyuria Exam - Physical Exam Narrative exam: GENERAL: Well-developed well-nourished. In no acute distress. HEENT: NC in place @ 3LPM. NECK: Supple. CHEST/LUNGS: CTAB on supplemental O2. HEART/CARDIOVASCULAR: RRR. No murmur, rubs or gallops appreciated. ABDOMEN: +BS. NT/ND. SKIN: No rashes noted. NEURO: L sided weakness from old stroke. MUSCULOSKELETAL: No joint effusion EXTREMITIES: No cyanosis, clubbing or edema. PSYCH: Cooperative. - Constitutional Vitals: Temp Pulse Resp BP Pulse Ox 78 18 159/63 97 04/06/22 05:12 04/06/22 05:12 04/06/22 05:12 04/06/22 05:12 HEART Score - HEART Score EKG: Non-specific Age: > 65 Risk factors: > 3 risk factors or hx of atherosclerotic disease Troponin: Troponin T < 0.010 ng/mL (0.00-0.029) 04/05/22 17:41 Troponin: < normal limit - Critical Actions Critical Actions: 4-6 pts:12-16.6% risk of adverse cardiac event. Should be admitted Results - Labs CBC & Chem 7: 04/06/22 21:50 04/06/22 21:50 Labs: Laboratory Last Values WBC 9.1 K/mm3 (4.5-11.0) 04/05/22 12:44 RBC 3.74 M/mm3 (3.65-5.03) 04/05/22 12:44 Hgb 12.3 gm/dl (10.1-14.3) 04/05/22 12:44 Hct 36.8 % (30.3-42.9) 04/05/22 12:44 MCV 98 fl (79-97) H 04/05/22 12:44 MCH 33 pg (28-32) H 04/05/22 12:44 MCHC 34 % (30-34) 04/05/22 12:44 RDW 14.1 % (13.2-15.2) 04/05/22 12:44 Plt Count 197 K/mm3 (140-440) 04/05/22 12:44 Lymph % (Auto) 14.6 % (13.4-35.0) 04/05/22 12:44 [place] % (Auto) 12.9 % (0.0-7.3) H 04/05/22 12:44 Eos % (Auto) 0.4 % (0.0-4.3) 04/05/22 12:44 Baso % (Auto) 0.4 % (0.0-1.8) 04/05/22 12:44 Lymph # (Auto) 1.3 K/mm3 (1.2-5.4) 04/05/22 12:44 [place] # (Auto) 1.2 K/mm3 (0.0-0.8) H 04/05/22 12:44 Eos # (Auto) 0.0 K/mm3 (0.0-0.4) 04/05/22 12:44 Baso # (Auto) 0.0 K/mm3 (0.0-0.1) 04/05/22 12:44 Seg Neutrophils % 71.7 % (40.0-70.0) H 04/05/22 12:44 Seg Neutrophils # 6.5 K/mm3 (1.8-7.7) 04/05/22 12:44 Sodium 141 mmol/L (137-145) 04/05/22 23:48 Potassium 4.1 mmol/L (3.6-5.0) 04/05/22 23:48 Chloride 98.9 mmol/L (98-107) 04/05/22 23:48 Carbon Dioxide 29 mmol/L (22-30) 04/05/22 23:48 Anion Gap 17 mmol/L 04/05/22 23:48 BUN 12 mg/dL (7-17) 04/05/22 23:48 Creatinine 0.7 mg/dL (0.6-1.2) 04/05/22 23:48 Estimated GFR > 60 ml/min 04/05/22 23:48 BUN/Creatinine Ratio 17 % 04/05/22 23:48 Glucose 126 mg/dL (65-100) H 04/05/22 23:48 Calcium 8.8 mg/dL (8.4-10.2) 04/05/22 23:48 Total Bilirubin 0.70 mg/dL (0.1-1.2) 04/05/22 23:48 AST 36 units/L (5-40) 04/05/22 23:48 ALT 26 units/L (7-56) 04/05/22 23:48 Alkaline Phosphatase 68 units/L (35-129) 04/05/22 23:48 Troponin T < 0.010 ng/mL (0.00-0.029) 04/05/22 17:41 Total Protein 6.6 g/dL (6.3-8.2) 04/05/22 23:48 Albumin 3.6 g/dL (3.9-5) L 04/05/22 23:48 Albumin/Globulin Ratio 1.2 % 04/05/22 23:48 Lipase 12 units/L (13-60) L 04/05/22 23:48 - Imaging and Cardiology Chest x-ray: report reviewed, image reviewed Assessment and Plan Assessment and plan: #Coronary artery disease status post CABG #ACS rule out -Troponin negative x2 -Patient with chest tenderness to palpation -COVID PCR ordered due to patient cough -Cardiology consulted, stress test and echocardiogram ordered #Chronic respiratory failure on home oxygen -Continue supplemental O2 #Chronic systolic heart failure -Not in acute exacerbation -Continue losartan, metoprolol, Lasix at home doses #CVA with left-sided weakness #Bedbound -Continue Eliquis and aspirin #Hypertension -Continue goal-directed medical therapy for heart failure #Type 2 diabetes with neuropathy -Continue sliding scale insulin plus Accu-Cheks -Continue gabapentin #Advanced care planning -Disease education conducted, care plan discussed, diagnoses discussed, prognosis discussed, and patient acknowledges understanding with care plan -Time: +30 min Advance Directives: No VTE prophylaxis?: Chemical Plan of care discussed with patient/family: Yes
--- NOTE | 2022-04-06 14:34 | Consultation ---
History of Present Illness Consult date: 04/06/22 Requesting physician: DERRICK SAEZ Consult reason: chest pain History of present illness: Patient is 76-year-old female with a past medical history of coronary artery disease, CABG 2009, history of CVA with left-sided weakness and bedbound(previously on Eliquis unknown if she still), cardiomyopathy, chronic respiratory failure on home O2, hypertension, hyperlipidemia who presented to the ED with a complaint of chest pain x1 day. Patient describes pain as pressure located in the center of her chest worse with palpation and inspiration. She reports her only relieving factor is her pain medication. She denies nausea, vomiting, dizziness, diaphoresis, or shortness of breath. Patient follows Dr. oTledo of our practice however has not been seen in at least a year. Cardiology is consulted for chest pain. Past History Past Medical History: acute CO, CAD, diabetes, hypertension, hyperlipidemia Past Surgical History: CABG, hysterectomy Medications and Allergies Allergies Allergy/AdvReac Type Severity Reaction Status Date / Time codeine Allergy Nausea Verified 04/05/22 11:26 morphine Allergy Nausea Verified 04/05/22 11:26 Home Medications Medication Instructions Recorded Confirmed Last Taken Type Acetaminophen [Acetaminophen ER 650 mg PO Q8HR PRN 12/07/16 08/29/18 08/28/18 09:00 History TAB] Butalb/Acetamin/Caff 50-325-40 1 each PO Q4H PRN 12/07/16 08/29/18 08/28/18 21:00 History [Fioricet 50-325-40] Omeprazole Magnesium [PriLOSEC Otc] 20 mg PO QDAY 12/07/16 08/29/18 08/29/18 07:00 History Gabapentin 300 mg PO Q8HR capsule 12/09/16 08/29/18 08/29/18 06:00 Rx Min Oil/Petrolatum [Artificial 1 applic OU QHS tube 12/09/16 08/29/18 08/29/18 07:00 Rx Tears Ophth Oint] Multivitamin Tab W-MINERAL 1 each PO QDAY tablet 12/09/16 08/29/18 08/28/18 09:00 Rx [Multiple Vitamin/Mineral (Theragran M)] Aspirin 325 mg PO DAILY 04/08/17 08/29/18 08/19/18 09:00 History Apixaban [Eliquis] 5 mg PO Q12HR #30 tablet 04/16/17 08/29/18 08/28/18 09:00 Rx Furosemide [Lasix TAB] 20 mg PO QDAY #30 tablet 04/16/17 08/29/18 08/28/18 09:00 Rx Percocet 5/325 mg 1 tab PO Q12H PRN #7 04/16/17 08/29/18 08/28/18 21:00 Rx Albuterol Mdi (or & Nicu Only) 1 puff IH BID 12/10/17 08/29/18 08/28/18 21:00 History [ProAir HFA Inhaler] Amiodarone [Cordarone 200 MG TAB] 200 mg PO QDAY 12/10/17 08/29/18 08/28/18 09:00 History Ascorbic Acid 500 mg PO QDAY 12/10/17 08/29/18 08/28/18 09:00 History Ferrous Sulfate [Iron 325 MG] 325 mg PO QDAY 12/10/17 08/29/18 08/28/18 09:00 History Losartan Potassium 25 mg PO QDAY 12/10/17 08/29/18 08/28/18 09:00 History Simvastatin [Zocor] 20 mg PO QHS 12/10/17 08/29/18 08/28/18 21:00 History Metoprolol [Lopressor TAB] 25 mg PO BID #30 tablet 12/12/17 08/29/18 08/29/18 07:00 Rx Ergocalciferol (Vitamin D2) 2,000 unit PO DAILY 08/15/18 08/29/18 08/28/18 09:00 History [Vitamin D2] cefUROXime [Ceftin] 250 mg PO Q12H #10 tablet 08/29/18 Unknown Rx Active Meds: Active Medications Acetaminophen (Acetaminophen 325 Mg Tab) 650 mg PO Q4H PRN PRN Reason: Pain MILD(1-3)/Fever >100.5/BLOOM Hydromorphone HCl (Hydromorphone 0.5 Mg/0.5 Ml Inj) 0.5 mg IV Q3H PRN PRN Reason: Pain , Severe (7-10) Ondansetron HCl (Ondansetron 4 Mg/2 Ml Inj) 4 mg IV Q8H PRN PRN Reason: Nausea And Vomiting Last Admin: 04/06/22 09:12 Dose: 4 mg Oxycodone/Acetaminophen (Oxycodone /Acetaminophen 5-325mg Tab) 1 tab PO Q6H PRN PRN Reason: Pain, Moderate (4-6) Last Admin: 04/06/22 09:12 Dose: 1 tab Sodium Chloride (Sodium Chloride 0.9% 10 Ml Flush Syringe) 10 ml IV BID HERMELINDO Last Admin: 04/06/22 09:46 Dose: 10 ml Sodium Chloride (Sodium Chloride 0.9% 10 Ml Flush Syringe) 10 ml IV PRN PRN PRN Reason: LINE FLUSH Stop: 04/19/22 07:37 Review of Systems Constitutional: no weight loss, no weight gain Ears, nose, mouth and throat: no sinus pressure, no sinus pain Cardiovascular: chest pain, no shortness of breath, no dyspnea on exertion Respiratory: no shortness of breath, no dyspnea on exertion Gastrointestinal: no abdominal pain, no nausea, no vomiting Musculoskeletal: shooting leg pain Integumentary: no rash, no pruritis, no redness Neurological: no head injury, no transient paralysis, no paralysis Psychiatric: no anxiety, no memory loss Endocrine: no cold intolerance, no heat intolerance Physical Examination Vital Signs Pulse Resp BP Pulse Ox 86 18 197/87 99 04/05/22 11:24 04/05/22 11:24 04/05/22 11:24 04/05/22 11:24 General appearance: no acute distress HEENT: Positive: Normocephaly, Mucus Membranes Moist Cardiac: Positive: Reg Rate and Rhythm Lungs: Positive: Normal Breath Sounds Neuro: Positive: Other (Left sided weakness) Abdomen: Positive: Soft Skin: Negative: Rash, Suspicious Lesions, Ulceration Extremities: Present: upper extr. pulses Results 04/05/22 12:44 04/05/22 23:48 Cardiac Enzymes 04/05/22 Range/Units 23:48 AST 36 (5-40) units/L Comprehensive Metabolic Panel 04/05/22 Range/Units 23:48 Sodium 141 (137-145) mmol/L Potassium 4.1 (3.6-5.0) mmol/L Chloride 98.9 (98-107) mmol/L Carbon Dioxide 29 (22-30) mmol/L BUN 12 (7-17) mg/dL Creatinine 0.7 (0.6-1.2) mg/dL Glucose 126 H (65-100) mg/dL Calcium 8.8 (8.4-10.2) mg/dL AST 36 (5-40) units/L ALT 26 (7-56) units/L Alkaline Phosphatase 68 (35-129) units/L Total Protein 6.6 (6.3-8.2) g/dL Albumin 3.6 L (3.9-5) g/dL - Imaging and Cardiology Echo: pending, report reviewed Cardiac cath: report reviewed EKG interpretations - Telemetry EKG Rhythm: Sinus Rhythm - EKG Sinus rhythms and dysrhythmias: sinus rhythm AV and intraventricular conduction: right bundle branch block Assessment and Plan Patient is 76-year-old female with a past medical history of coronary artery disease, CABG 2009, history of CVA with left-sided weakness and bedbound(previously on Eliquis unknown if she still), cardiomyopathy, chronic respiratory failure on home O2, hypertension, hyperlipidemia who presented to the ED with a complaint of chest pain x1 day. Atypical chest pain Coronary artery disease CABG 2009 Chronic respiratory failure on home O2 History of CVA Cardiomyopathy Hypertension Hyperlipidemia next Cardiac Cath 11/22/2009 . The patient underwent the procedure for non ST elevation myocardial infarction. The procedure(s) performed: Left Heart Catheterization and Left Ventriculography. The attending physician was present during the entire case. Findings Left Coronary Artery The left coronary artery Distal LM has 80% stenosis. Mid LAD has 100% stenosis, Distal LAD fills by SVG to LAD graft. Distal LAD has sequential 705 lesion, diffusely diseased and is a wrap around LAD.D1 has ostial 80% lesion and is diffusely diseased. Proximal LAD provides collaterals to the RCA vis the septals. Proximal L Cx has 60% stenosis, OM1 has 805 ostial disease and fills by DENNEY to OM1. Distal L Cx has 100% stenosis. . Dominance The left coronary artery is dominant. Right Coronary Artery Diffuse 60% disease in the proximal and mid segments, mid RCA is occluded. Distal RCA fills by L to R collaterals.. Coronary Artery Bypass Graft OM1 is patent. The saphenous vein graft to the distal left anterior descending artery is patent. Left Ventriculogram A biplane left ventriculogram was performed. The ejection fraction is estimated at 40 %. The right anterior oblique apical wall is severely hypokinetic. The right anterior oblique inferior wall is severely hypokinetic. The left anterior oblique septal wall is moderately hypokinetic. LVEDP 20 mmHg. Echocardiogram 04/12/2017- moderate LV dysfunction EF 3035% normal RV size and function mild mitral regurgitation mild tricuspid regurgitation normal RVSP no aortic stenosis or aortic regurgitation noted Per review of records previous outpatient medications as of 04/2021: Amiodarone 200 mg p.o. every 48 hours, Eliquis, Lasix 20 mg p.o. daily, metoprolol 50 mg p.o. 3 times daily, losartan 25 mg p.o. daily, simvastatin 20 mg p.o. nightly Plan: EKG shows sinus rhythm with RBBB no acute ischemic changes. Troponins negative x2. AMI ruled out EKG does not appear significantly different than prior EKGs Patient for Lexiscan MPI stress test. Stress test showed fixed defect however no reversible signs of ischemia. See report for full details Preliminary echo report shows EF of 35 to 40%. Final report pending As patient had atypical chest pain, stress test this a.m. is negative, prelim echo shows similar results to prior, EKG is not significantly different than prior EKG, and troponins were negative x2 cardiac status appears stable for discharge Patient can resume previous outpatient medications Patient has a follow-up appointment with Dr. Toledo, [facility] legal recovery specialist, on 05/01/2022 at 11:30 AM in our [place] location. Phone #[phone] - Patient Problems (1) Cardiomyopathy Current Visit: Yes Status: Acute (2) Chest pain Current Visit: Yes Status: Acute (3) CVA, old, hemiparesis Current Visit: No Status: Acute (4) Hx of CABG Current Visit: No Status: Acute (5) Hx of heart artery stent Current Visit: No Status: Acute (6) Hypertension Current Visit: No Status: Acute (7) History of CVA (cerebrovascular accident) Current Visit: No Status: Chronic
[2022-04-06] MEDS: HYDROmorphone 0.5 MG/0.5 ML INJ IV PRN ×2 (15:07→18:26)
[2022-04-06] MEDS: AMIODARONE 200 MG TAB PO SCH (18:26)
[2022-04-06] MEDS ORDERED: NON-FORMULARY EACH (Apixaban 5 MG Tablet) PO SCH (22:00)
[2022-04-06 22:04] LABS: Hematocrit 36.3 % (30.3-42.9); Hemoglobin 11.6 gm/dl (10.1-14.3); Mean Corpuscular HGB Conc 32 % (30-34); Mean Corpuscular Volume 99 fl (79-97); Platelet Count 173 K/mm3 (140-440); Red Blood Count 3.68 M/mm3 (3.65-5.03); Red Cell Distribution Width 14.5 % (13.2-15.2)
[2022-04-06 22:15] LABS: INR 1.06 (0.87-1.13)
[2022-04-06 22:16] LABS: Partial Thromboplastin Time 30.7 Sec. (24.2-36.6)
[2022-04-06] MEDS: APIXABAN 5 MG TAB PO SCH (22:18)
[2022-04-06] MEDS: GABAPENTIN 300 MG CAP PO SCH (22:18)
[2022-04-06] MEDS: METOPROLOL TARTRATE 25 MG TAB PO SCH (22:32)
--- NOTE | 2022-04-07 01:06 | Treadmill Report ---
DATE OF SERVICE: 04/06/2022 NUCLEAR PERFUSION SCAN PROTOCOL: The patient was assessed in postoperative state, given 10 mCi of technetium at rest. The patient had rest imaging. The patient underwent Lexiscan stress test per standard protocol. At peak stress, the patient given 26 mCi technetium. Shortly thereafter, the patient had stress imaging. SPECT imaging examined carefully the horizontal long axis, vertical long axis, short axis views. There was a large fixed dense defect in the inferior apical region consistent with prior myocardial infarction. No evidence of reversible ischemia, inferior dyskinesis ejection fraction of 50%. CONCLUSIONS: * Abnormal nuclear stress test with a large fixed dense inferior apical defect consistent with prior myocardial infarction. No evidence of reversible or significant ischemia. * Inferior dyskinesis with ejection fraction of 50%. TID: [id number] RECEIPT: [id number] GIOVANI/CHLOÉ
[2022-04-07] MEDS ORDERED: HYDROmorphone 0.5 MG/0.5 ML INJ IV ONE (01:48)
[2022-04-07] MEDS: HYDROmorphone 0.5 MG/0.5 ML INJ IV PRN (05:44)
[2022-04-07] MEDS: GABAPENTIN 300 MG CAP PO SCH ×2 (05:44→14:16)
[2022-04-07] MEDS: ONDANSETRON 4 MG/2 ML INJ IV PRN ×2 (05:45→13:25)
--- NOTE | 2022-04-07 08:08 | Discharge Summary ---
Providers - Providers Date of Admission: 04/06/22 07:38 Date of discharge: 04/07/22 Attending physician: DERRICK SAEZ MD 04/06/22 08:59 Consult to Physician [CONS] Routine Comment: Consulting Provider: OLVIN BURTON Physician Instructions: Reason For Exam: chest pain Primary care physician: SOCIAL [employer] DEVELOPER Hospitalization Reason for admission: ACS rule out Condition: Stable Hospital course: The patient is a 76-year-old female with history of coronary artery disease status post CABG, hypertension, CVA with residual left-sided weakness who presented from group home with acute onset chest pain. Cardiology was consulted. Stress test was negative. Echocardiogram revealed EF of 35 to 40%. COVID PCR was positive. Once stable, patient was discharged back to nursing facility. Disposition: [facility] Final Discharge Diagnosis (Prints w/discharge instructions): ACS ruled out. Coronary artery disease status post CABG. COVID-19 infection. Chronic respiratory failure. Chronic systolic heart failure. CVA with left-sided weakness. Hypertension. Type 2 diabetes with neuropathy Time spent for discharge: 35 minutes Core Measure Documentation - Palliative Care Palliative Care/ Comfort Measures: Not Applicable - Core Measures Any of the following diagnoses?: history only Exam - Physical Exam Narrative exam: GENERAL: Well-developed well-nourished. In no acute distress. HEENT: NC in place @ 3LPM. NECK: Supple. CHEST/LUNGS: CTAB on supplemental O2. HEART/CARDIOVASCULAR: RRR. No murmur, rubs or gallops appreciated. ABDOMEN: +BS. NT/ND. SKIN: No rashes noted. NEURO: L sided weakness from old stroke. MUSCULOSKELETAL: No joint effusion EXTREMITIES: No cyanosis, clubbing or edema. PSYCH: Cooperative. - Constitutional Vitals: Temp Pulse Resp BP Pulse Ox 98.0 F 54 L 18 111/58 100 04/07/22 07:41 04/07/22 07:41 04/07/22 07:41 04/07/22 07:41 04/07/22 07:41 Plan Care Plan Goals: Follow-up with your primary care provider. Please follow-up appointment with Dr. Toledo, [facility] agronomy specialist, on 05/01/2022 at 11:30 AM in our [place] location. Phone #[phone] Your stress test was negative. We found that you are COVID positive. You should self-quarantine for 5 days. After 5 days if you have no symptoms please wear a mask when around people for another 5 days. Continue to take all medications as they are prescribed to you. Follow up with: PRIMARY CARE, [Primary Care Provider] - 3-5 Days MICHELLE TOLEDO MD [Staff Physician] - 14 Days Prescriptions: Naproxen Sodium [Naproxen Sodium 220mg] 220 mg PO BID 7 Days #14 tab
[2022-04-07] MEDS ORDERED: LOSARTAN 25 MG TAB PO SCH (10:00)
[2022-04-07] MEDS ORDERED: FUROSEMIDE 20 MG TAB PO SCH (10:00)
[2022-04-07] MEDS ORDERED: ASPIRIN 325 MG TAB PO SCH (10:00)
[2022-04-07] MEDS: APIXABAN 5 MG TAB PO SCH (10:15)
[2022-04-07] MEDS: AMIODARONE 200 MG TAB PO SCH (10:15)
[2022-04-07] MEDS: METOPROLOL TARTRATE 25 MG TAB PO SCH (10:16)
--- NOTE | 2022-04-07 11:56 | Electrocardiograph Report ---
[facility] Test Date: 2022-04-05 Test Time: 20:09:27 Pat Name: BRIAN DUNN Department: Room: A457 1 Gender: F Stations Superintendent: CRISTINA : 1945 Requested By: EILEEN WHALEN Order Number: [id number] Reading MD: Sid Fiore Measurements Intervals [place] Rate: 63 P: 0 CA: 253 QRS: -55 QRSD: 162 T: 106 QT: 485 QTc: 497 Interpretive Statements Sinus rhythm Prolonged CA interval Right bundle branch block LVH with secondary repolarization abnormality ST elevation secondary to LVH No previous ECG available for comparison Electronically Signed On 04-07-2022 8:56:49 PDT by Sid Fiore
[2022-04-07 12:37] VITALS: BP 112/52
[2022-04-07] MEDS ORDERED: INSULIN LISPRO 100 UNIT/ML SUB-Q SCH (22:00)
== END 2022-04-07 15:00 ==
LOC: ED 11:18 → 4A 04-06 07:38 → INTOOBSV 04-06 07:38 → 4A 04-06 11:05
PROVIDERS: ADMIT Student in an Organized Health Care Education/Training Program; ATTEND Student in an Organized Health Care Education/Training Program
DX: U07.1 COVID-19 (principal); I25.10 Atherosclerotic heart disease of native coronary artery without angina pectoris; I11.0 Hypertensive heart disease with heart failure; I50.22 Chronic systolic (congestive) heart failure; J96.10 Chronic respiratory failure, unspecified whether with hypoxia or hypercapnia; I63.9 Cerebral infarction, unspecified; E11.40 Type 2 diabetes mellitus with diabetic neuropathy, unspecified; M62.81 Muscle weakness (generalized); I48.91 Unspecified atrial fibrillation; I42.9 Cardiomyopathy, unspecified; E78.5 Hyperlipidemia, unspecified; Z99.81 Dependence on supplemental oxygen; Z95.1 Presence of aortocoronary bypass graft; Z79.82 Long term (current) use of aspirin; Z90.49 Acquired absence of other specified parts of digestive tract; Z79.899 Other long term (current) drug therapy; Z98.890 Other specified postprocedural states; Z87.891 Personal history of nicotine dependence; Z86.73 Personal history of transient ischemic attack (TIA), and cerebral infarction without residual deficits
CPT/HCPCS: 36415; 71045; 78452; 80053; 82565; 82962; 83690; 84484; 85025; 85027; 85610; 85730; 87116; 93005; 93017; 96374; 96375; 96376; 99285; A9502; C8929; G0378; J0780; J1170; J2405; J2785; J3490; U0003; 93306